=== PATIENT | male | born 1990 | race Caucasian/White ===

== ENCOUNTER 2016-09-10 15:34 | Emergency (ER) | payer BC ==
[~2016-09-10] VITALS: Ht 182.9 cm; Wt 110.0 kg
[~2016-09-10 15:34] MED LIST: INDSR/60 PO; LEVO75TA5 PO; RANI150C4 PO
[2016-09-10 15:39] VITALS: TEMP 36.5; Ht 182.9 cm; Wt 110.0 kg
--- NOTE | 2016-09-10 16:00 | EMERGENCY ROOM VISIT NOTE ---
History Report prepared by Verónica: Jono Layton Under the Supervision of: Dr. Ibrahima Arizmendi M.D. First contact with patient: 15:43 Chief Complaint: MENTAL HEALTH EVALUATION Stated Complaint: SEEING IMAGES, HEARING VOICES History of Present Illness The patient is a 25 year old male who presents to the Emergency Room with complaints of intermittent auditory hallucinations beginning several years ago. The psych binder caser states that the patient is not suicidal or homicidal. She reports that the patient does not have an ID for registration, and he states that he is here because he his homeless. The patient confirms that he is not homicidal and is "feeling bad". He states that he is also depressed and thinks that the world is ending. The patient notes that he has been admitted to [facility] and it helped with past cases. Source of History: patient, other (psych binder caser) Onset: several years ago Position: other (global) Quality: other (Hallucinations) Timing: intermittent Review of Systems See HPI for pertinent positives & negatives. A total of 10 systems reviewed and were otherwise negative. Past Medical & Surgical Medical Problems: (1) Bipolar disorder (2) Schizoaffective disorder Family History No significant family history Social History Smoking Status: Light Tobacco Smoker Alcohol Use: occasionally Drug Use: marijuana Marital Status: single Housing Status: lives with roommate Occupation Status: disabled Current/Historical Medications No Active Prescriptions or Reported Meds Allergies Coded Allergies: Haloperidol (Verified Allergy, Unknown, suicidal idiations,violent thoughts, 09/10/16) Oxcarbazepine (Verified Allergy, Unknown, suicidal ideatios,violent thoughts, 09/10/16) Valproic Acid (Verified Allergy, Unknown, suicidal ideations, violent thoughts, 09/10/16) Uncoded Allergies: ANESTHESIA (Allergy, Unknown, suicidal ideations, violent thoughts, ) uncertain which type of anesthesia causes reaction. Physical Exam Vital Signs Date Time Temp Pulse Resp B/P Pulse Ox O2 Delivery O2 Flow Rate FiO2 09/10/16 16:51 80 16 147/76 98 09/10/16 15:39 36.5 89 16 152/75 96 Physical Exam GENERAL: Patient is a healthy-appearing well-nourished HEAD: Normocephalic atraumatic EYES: Ocular movements intact pupils equal and react to light OROPHARYNX mucous membranes are moist no exudates present no erythema or edema present NECK: Supple no nuchal rigidity CHEST: Good equal expansion LUNGS: Clear and equal to auscultation CARDIAC: Normal S1 and S2 ABDOMEN: Soft nontender no guarding BACK: No CVA tenderness EXTREMITIES: No pain upon palpation normal muscle strength in all groups no clubbing cyanosis or edema NEURO: Patient is following commands is answering questions appropriately. Alert and oriented x3 Cranial Nerves 2-12 grossly intact Medical Decision & Procedures Laboratory Results 09/10/16 16:42 Red Blood Count 5.30, Mean Corpuscular Volume 84.3, Mean Corpuscular Hemoglobin 28.5, Mean Corpuscular Hemoglobin Concent 33.8, Mean Platelet Volume 9.8, Neutrophils (%) (Auto) 62.2, Lymphocytes (%) (Auto) 28.1, Monocytes (%) (Auto) 8.0, Eosinophils (%) (Auto) 1.1, Basophils (%) (Auto) 0.4, Neutrophils # (Auto) 3.43, Lymphocytes # (Auto) 1.55, Monocytes # (Auto) 0.44, Eosinophils # (Auto) 0.06, Basophils # (Auto) 0.02 09/10/16 16:42 Test 09/10/16 13:55 09/10/16 16:42 Urine Color YELLOW Urine Appearance CLEAR (CLEAR) Urine pH 5.5 (4.5-7.5) Urine Specific Floyd 1.021 (1.000-1.030) Urine Protein NEG (NEG) Urine Glucose (UA) NEG (NEG) Urine Ketones NEG (NEG) Urine Occult Blood NEG (NEG) Urine Nitrite NEG (NEG) Urine Bilirubin NEG (NEG) Urine Urobilinogen NEG (NEG) Urine Leukocyte Esterase NEG (NEG) Urine Opiates Screen NEG (NEG) Urine Methadone, Qualitative NEG (NEG) Urine Barbiturates NEG (NEG) Urine Phencyclidine (PCP) Level NEG (NEG) Ur Amphetamine/Methamphetamine NEG (NEG) MDMA (Ecstasy) Screen NEG (NEG) Urine Benzodiazepines Screen NEG (NEG) Urine Cocaine Metabolite NEG (NEG) Urine Marijuana (THC) POS (NEG) White Blood Count 5.51 K/uL (4.8-10.8) Red Blood Count 5.30 M/uL (4.7-6.1) Hemoglobin 15.1 g/dL (14.0-18.0) Hematocrit 44.7 % (42-52) Mean Corpuscular Volume 84.3 fL (80-100) Mean Corpuscular Hemoglobin 28.5 pg (25-34) Mean Corpuscular Hemoglobin Concent 33.8 g/dl (32-36) Platelet Count 216 K/uL (130-400) Mean Platelet Volume 9.8 fL (7.4-10.4) Neutrophils (%) (Auto) 62.2 % Lymphocytes (%) (Auto) 28.1 % Monocytes (%) (Auto) 8.0 % Eosinophils (%) (Auto) 1.1 % Basophils (%) (Auto) 0.4 % Neutrophils # (Auto) 3.43 K/uL (1.4-6.5) Lymphocytes # (Auto) 1.55 K/uL (1.2-3.4) Monocytes # (Auto) 0.44 K/uL (0.11-0.59) Eosinophils # (Auto) 0.06 K/uL (0-0.5) Basophils # (Auto) 0.02 K/uL (0-0.2) RDW Standard Deviation 39.2 fL (36.4-46.3) RDW Coefficient of Variation 12.8 % (11.5-14.5) Immature Granulocyte % (Auto) 0.2 % Immature Granulocyte # (Auto) 0.01 K/uL (0.00-0.02) Anion Gap 4.0 mmol/L (3-11) Est Creatinine Clear Calc Drug Dose 178.6 ml/min Estimated GFR () 143.2 Estimated GFR (Non- 123.5 BUN/Creatinine Ratio 13.8 (10-20) Calcium Level 8.7 mg/dl (8.5-10.1) Total Bilirubin 0.5 mg/dl (0.2-1) Direct Bilirubin 0.1 mg/dl (0-0.2) Aspartate Amino Transf (AST/SGOT) 15 U/L (15-37) Alanine Aminotransferase (ALT/SGPT) 28 U/L (12-78) Alkaline Phosphatase 72 U/L (45-117) Total Protein 6.5 gm/dl (6.4-8.2) Albumin 3.7 gm/dl (3.4-5.0) Thyroid Stimulating Hormone (TSH) 0.801 uIu/ml (0.300-4.500) Ethyl Alcohol mg/dL < 3.0 mg/dl (0-3) Labs reviewed by ED physician. ED Course 1646: Past medical records reviewed. The patient was evaluated in room A06. A complete history and physical examination was performed. After discussion with the psych binder caser, she is setting the patient up with outpatient follow up. The patient verbalized complete understanding and agreement. He is ready to go home shortly. Medical Decision Differential diagnosis: Etiologies such as mood disorder, infection, hypoglycemia, electrolyte abnormalities, cardiac sources, intracerebral event, toxicologic, neurologic, as well as others were entertained. This is a 25-year-old male who presents emergency department for mental health admission. The patient denies being suicidal or homicidal. He states he has been hearing voices however he has been hearing them pencil life. As the patient denies being suicidal or homicidal on multiple evaluations I feel he can be safely discharged for follow-up with outpatient psychiatry. Case management also independently interview the patient and also came to the same conclusion. The patient has seen some [facility] in the past. I do believe he is well enough to be discharged home. Patient was in agreement with the treatment plan. Impression Primary Impression: Mood disorder Scribe Attestation The scribe's documentation has been prepared under my direction and personally reviewed by me in its entirety. I confirm that the note above accurately reflects all work, treatment, procedures, and medical decision making performed by me. Departure Information Dispostion Home / Self-Care Prescriptions No Active Prescriptions or Reported Meds Referrals Ajit Mullins M.D. (PCP) Forms HOME CARE DOCUMENTATION FORM, IMPORTANT VISIT INFORMATION, School Instructions, Work Instructions Patient Instructions My [facility] Additional Instructions Follow up with O/p therapist You have been examined and treated today on an emergency basis only. This is not a substitute for, or an effort to provide, complete comprehensive medical care. It is impossible to recognize and treat all injuries or illnesses in a single emergency department visit. It is therefore important that you follow up closely with Dr Mullins. Call as soon as possible for an appointment. Thank you for your time and consideration. I look forward to speaking with you again soon. Please don't hesitate to call us if you have any questions.
[2016-09-10 16:10] LABS: URINE APPEARANCE CLEAR (CLEAR); URINE BILIRUBIN NEG (NEG); URINE COLOR YELLOW; URINE NITRITE NEG (NEG); URINE PH 5.5 (4.5-7.5); URINE SPECIFIC GRAVITY 1.021 (1.000-1.030); UROBILINOGEN NEG (NEG)
[2016-09-10 16:11] LABS: MANUAL MICROSCOPIC REQUIRED? NO; REVIEW REQ? NO
[2016-09-10 16:40] LABS: BENZODIAZEPINE, URINE NEG (NEG); COCAINE,URINE NEG (NEG); PHENCYCLIDINE, URINE NEG (NEG)
[2016-09-10 16:51] VITALS: BP 147/76; PULSE 80; O2SAT 98
[2016-09-10 16:56] LABS: BASO % 0.4 %; BASO ABS # 0.02 K/uL (0-0.2); COMPLETE YES; EOS % 1.1 %; HEMATOCRIT 44.7 % (42-52); IG% 0.2 %; LYMPH % 28.1 %; LYMPH ABS # 1.55 K/uL (1.2-3.4); MEAN CELL VOLUME 84.3 fL (80-100); MEAN CORPUSCULAR HEMOGLOBIN 28.5 pg (25-34); MEAN CORPUSCULAR HGB CONC 33.8 g/dl (32-36); MEAN PLATELET VOLUME 9.8 fL (7.4-10.4); NEUT % 62.2 %; PLATELET COUNT 216 K/uL (130-400); WHITE BLOOD COUNT 5.51 K/uL (4.8-10.8)
[2016-09-10 17:21] LABS: BUN/CREATININE RATIO 13.8 (10-20); CALCIUM 8.7 mg/dl (8.5-10.1); CREATININE 0.81 mg/dl (0.60-1.40); POTASSIUM 3.9 mmol/L (3.5-5.1)
[2016-09-10 17:32] LABS: THYROID STIMULATING HORMONE 0.801 uIu/ml (0.300-4.500)
[2016-10-17] MEDS ORDERED: HYDR-5688 PO (09:04)
[2017-03-06] MEDS ORDERED: PALI156I IM (06:16)
== END 2016-09-10 17:04 | disposition home or self-care (01) ==
LOC: C.EDB 15:36 → C.EDA 17:04
DX: Z00.8 Encounter for other general examination (principal); F39 Unspecified mood [affective] disorder; R44.0 Auditory hallucinations; R44.1 Visual hallucinations; F25.0 Schizoaffective disorder, bipolar type; F17.210 Nicotine dependence, cigarettes, uncomplicated

== ENCOUNTER → 2016-10-08 | Outpatient (CLI) | payer BC ==
[~2016-10-08] MED LIST changes: +ATR25 PO; +HYDR-5688 PO; -INDSR/60 PO; -LEVO75TA5 PO; +PALI117I IM; +PALI156I IM; +PALI3TAB PO; +PALI6TAB3 PO; -RANI150C4 PO
--- NOTE | 2016-10-08 10:05 | DIAGNOSTIC IMAGING REPORT ---
RIGHT ANKLE MIN 3 VIEWS CLINICAL HISTORY: Right ankle pain COMPARISON: November 2012 DISCUSSION: No acute fractures are visualized. There are corticated ossicles adjacent to the distal fibula and tibia. These are felt to be old. There is a transversely oriented screw present within the medial midfoot. There are mild posttraumatic arthritic changes similar to the preceding study. IMPRESSION: Old posttraumatic and postsurgical changes. No acute fractures. Electronically signed by: Juan Pablo Jackson M.D. 10/08/2016 10:03 AM Dictated Date/Time: 10/08/2016 10:01 AM
== END | disposition home or self-care (01) ==
LOC: C.RDSM 12:38
PROVIDERS: ATTEND Physician Assistant
DX: M25.571 Pain in right ankle and joints of right foot (principal)

== ENCOUNTER → 2016-10-11 | Outpatient (CLI) | payer BC | END | disposition home or self-care (01) | LOC: C.RDSM 11:15 | PROVIDERS: ATTEND Physical Medicine & Rehabilitation Sports Medicine | DX: M79.671 Pain in right foot (principal) ==

== ENCOUNTER → 2016-10-17 | Day surgery (SDC) | payer BC, OTHER ==
[2016-10-15 15:26] VITALS: Ht 182.9 cm; Wt 109.1 kg
[~2016-10-17] VITALS: Ht 182.9 cm; Wt 109.1 kg
[~2016-10-17] MED LIST changes: +ATROPINE SULFATE 0.1 MG/ML 5ML SYR IV PRN; +BUPIVACAINE/EPINEPHRINE 0.5% MPF 1:200,000 30 ML VIAL ONE; +CEFAZOLIN 2000 MG/60 ML D5W IV SCH; +DEXAMETHASONE SOD INJ 4 MG/ML VIAL ONE; +EpHEDrine SULFATE INJ 50 MG/ML AMP IV PRN; +FENTANYL CITRATE INJ 50 MCG/1 ML 2 ML VIAL IV PRN; +FENTANYL CITRATE INJ 50 MCG/1 ML 2 ML VIAL ONE; +LACTATED RINGER'S 1000ML 1,000 ML IV SCH; +LIDOCAINE HCL 2% 2 ML VIAL (20MG/ML) ONE; +LIDOCAINE/EPINEPHRINE 1% INJ 50 ML VIAL ONE; +MIDAZOLAM HCL 1 MG/ML 2ML VIAL ONE; +MoRPHine SULFATE 2 MG/ML CARP IV PRN; +MoRPHine SULFATE 4 MG/ML 1 ML CARP\\VIAL IV PRN; +ONDANSETRON INJ 2 MG/ML 2 ML VIAL IV PRN; +ONDANSETRON INJ 2 MG/ML 2 ML VIAL ONE; +OXYCODONE/ACETAMINOPHEN 5-325 TAB PO PRN; +PATIENT'S HEIGHT AND/OR WEIGHT NEEDED SCH; +POVIDONE-IODINE OP SOLN 30 ML BTL ONE; +PROPOFOL IV EMULSION 10 MG/ML 20 ML VIAL IV ONE; +SODIUM CHLORIDE 0.9% 1000ML 1,000 ML IV SCH
--- NOTE | 2016-10-17 06:41 | History & Physical Bridge Note ---
H&P Re-Evaluation Bridge Note: I have examined the patient, reviewed the History & Physical and in the interval since the performance of the History & Physical I have noted the following changes of clinical significance: No changes noted
--- NOTE | 2016-10-17 08:57 | [facility] Post Operative Brief Note ---
Immediate Operative Summary Operative Date Oct 17, 2016. Pre-Operative Diagnosis Retained Hardware Right Foot, post traumatic accessory ossicle of the navicular bone Post-Operative Diagnosis Same Procedure(s) Performed Right Foot Hardware Removal, excision of ossicle and repair of posterior tibial tendon Surgeon Dr. Jara Quarter Seamer Surgeon(s) Esteban Ulrich PA-C Estimated Blood Loss 5 ml Findings retained hardware and ossicle Specimens None Drains 0 Anesthesia LMA Complication(s) None Disposition Recovery Room / PACU
--- NOTE | 2016-10-17 09:07 | Discharge Instructions-SurgCtr ---
Discharge Instructions Date of Service Oct 17, 2016. Visit Reason for Visit: Retained Hardware Right Foot Discharge Discharge Diagnosis / Problem: Retained hardware right foot Discharge Goals Goal(s): Decrease discomfort, Improve function, Increase independence Activity Recommendations Activity Limitations: per Instructions/Follow-up section Weightbearing Status: Right non-weightbearing Anesthesia . Post Anesthesia Instructions: If you have had General Anesthesia or IV Sedation: * Do not drive today. * Resume driving when surgeon permits. * Do not make important decisions or sign legal documents today. * Call surgeon for: 1. Temperature elevations greater than 101 degrees F. 2. Uncontrollable pain. 3. Excessive bleeding. 4. Persistent nausea and vomiting. 5. Medication intolerance (nausea, vomiting or rash). * For nausea and vomiting use only clear liquids such as: tea, soda, bouillon until nausea subsides, then gradually increase diet as tolerated. * If you have any concerns or questions, call your surgeon's office. If physician is unavailable and it is an emergency, call 911 or go to the nearest emergency room. . Instructions / Follow-Up Instructions / Follow-Up DIET: * Resume previous diet. MEDICATIONS: * Please take your prescriptions as instructed at your pre-op appointment and/ or see medication discharge instructions listed above. * If concerns develop, call your physician's office at . SPECIAL CARE INSTRUCTIONS: * Ice to right foot as needed for pain/swelling * Elevate right foot above heart to relieve pain/swelling * Keep dressing clean, dry, intact. Keep splint on at all times. Do NOT REMOVE SPLINT to move ankle. * Do not place any weight on right foot. Use crutches to assist with ambulation. * Your surgical extremity may be discolored due to prepping agents used on the skin. A bluish-green tint is a normal variant and should not cause alarm. Call your doctor at [phone] if: * Temperature above 101 degrees * Pain not relieved by pain medicine ordered * There is increased drainage or redness from any incision * You have any unanswered questions, problems or concerns. FOLLOW UP VISIT: * If not already scheduled, please call the office at to schedule a follow-up appointment. Follow up as scheduled with Dr. Jara on 10/28/16. Diet Recommendations Home Diet: no limitations, resume previous diet Procedures Procedures Performed: Right Foot Hardware Removal, excision of ossicle and repair of posterior tibial tendon Pending Studies Studies pending at discharge: no Medical Emergencies . Who to Call and When: Medical Emergencies: If at any time you feel your situation is an emergency, please call 911 immediately. . Non-Emergent Contact Non-Emergency issues call your: Surgeon Call Non-Emergent contact if: temperature is above 101, your pain is not controlled, your pain is concerning you, wound has increased drainage, you have any medication questions . . "Provider Documentation" section prepared by Magalys Ulrich. . [place] Drug Monitoring Program Search Results: patient reviewed within database, no issues identified
--- NOTE | 2016-10-17 09:12 | [facility] Operative Report ---
Operative Report Operative Date Oct 17, 2016. Pre-Operative Diagnosis Retained Hardware Right Foot, post traumatic accessory ossicle of the navicular bone Post-Operative Diagnosis Same as pre-op Procedure(s) Performed Removal hardware right foot, removal ossicle accessory ossicle right foot, repair of posterior tibial tendon Surgeon Dr. Jara Clinical Biochemist Surgeon(s) Esteban Ulrich PA-C Estimated Blood Loss 5 ml Findings ossicle right foot; retained hardware Specimens None Drains 0 Anesthesia LMA Complication(s) None Disposition Recovery Room / PACU (stable) Indications Patient is a 25 year old male, s/p ORIF right navicular fracture approximately 10 years ago. He presented to the office with complaints of right foot pain. Failed conservative treatment, progressively worsened. x-rays obtained, found to have retained hardware right foot with accessory ossicle. Surgical intervention discussed, risks/complications discussed, informed consent obtained. Description of Procedure Patient was taken to the operating room, given IV ancef for surgical prophylaxis. He was placed under general anesthesia. Time out performed, prepped and draped in routine sterile fashion. I was present the entire case, please see Dr. Jara's operative report for further detail. Patient was awakened and taken to the recovery room in stable condition. I attest to the content of the Intraoperative Record and any orders documented therein. Any exceptions are noted below.
--- NOTE | 2016-10-17 09:53 | OPERATIVE REPORT ---
DATE OF OPERATION: 10/17/2016 PREOPERATIVE DIAGNOSIS: Retained hardware, right foot posttraumatic ossicle of the navicular. POSTOPERATIVE DIAGNOSIS: Same. PROCEDURE PERFORMED: Removal of deep hardware, excision of accessory ossicle of the navicular and repair of the posterior tibial tendon. SURGEON: Dr. Jara. INTERNATIONAL COORDINATOR: Magalys Ulrich. No resident or fellow available. ANESTHESIA: Laryngeal mask. INDICATIONS OF PROCEDURE: The patient is a 25-year-old male, who is 9 years status post ORIF of a fracture involving the medial portion of the navicular. The patient reports issues of long going pain on the medial side of the mid foot in the region of prior surgery, particularly with pressure. Radiographs showed that the navicular has completely healed without complication, and the hardware is intact. Review of serial x-ray shows that there is a fragmentation of the proximal portion of this fracture fragment, which has resulted in a small posttraumatic accessory ossicle of the navicular, which may or may not be causing symptoms. His treatment options were reviewed and discussed and he elected to proceed with operative intervention. I discussed with him preoperatively that this screw would be removed. If the ossicle was noted and noted to be unstable, this would be removed also. He may be able to weightbear normally after surgery in a fairly rapid fashion or he may have a prolonged recovery if we have to detach the tendon significantly in order to excise the ossicle and possibly need a repair and to protect it. PROCEDURE IN DETAIL: Informed consent was obtained. The patient was identified as Diogo Hernández. He identified the operative site as the right foot. I marked it with my initials. A preop surgical time-out was performed. A preop dose of IV antibiotics was given. He was taken to the operating room, positioned supine on the operating room table. A tourniquet was applied to the right calf. The leg was prepped and draped in usual sterile fashion. The exam under anesthesia was unremarkable in terms of the incision was well healed, there was no swelling, he had full range of motion. A laryngeal mask anesthetic was administered. DVT prophylaxis will be done with early patient mobility. Fluoroscopic guidance was utilized throughout the procedure. The limb was exsanguinated with the Esmarch, tourniquet inflated to 225 mmHg. The prior medial foot incision was utilized, which was centered over the tarsal navicular. The skin was incised, blunt dissection was performed through the subcutaneous tissues down to the level of the tendon. Dissection was carried proximally and the distal tendinous portion of the tibialis posterior tendon was identified. The sheath was opened for a very short distance. Fluoroscopic guidance was utilized to identify the location of the screw and a longitudinal split was made in the mid portion of the tibialis posterior tendon in line with the tendon. Electrocautery was utilized to dissect down to the level of the bone. The screw was not readily encountered. I then had to use the fluoroscope to identify the location of the screw and remove some bone with a rongeur, which had overgrown the top of the screw. Once the screw was localized, I dissected it out removing bone from around the head of the screw and washer and removed both of them completely. While doing the dissection, which was for approximately 1.5 cm of the split longitudinally in the distal posterior tib tendon, I identified just proximal to the screw, a mobile ossicle within the tendon. This was the ossicle noted on radiographs, it is possible that this may have contributed to the patient's symptoms. I then went ahead and used electrocautery and blunt dissection to dissect out this ossicle completely and remove it. There was a prominent ridge of bone on the anterior aspect of the navicular, which was debrided so as to prevent any postoperative prominence. The anterior one-third of the tendon was detached in this process, the posterior two-third had been split and detached from the ossicle. The posterior two-third remained robustly attached to the more plantar aspect of the navicular and the additional attachments of the posterior tib tendon. Because of the ossicle that was removed, I elected to go ahead and perform a repair of the posterior tibial tendon. The prominent ridge of bone was removed. A curette was utilized to excoriate the navicular. Bony prominences were removed with the rongeur. The talonavicular joint was identified. Fluoroscopic guidance was utilized to identify bony landmarks. I used the tap for the 4.5 [employer] screw, inserted it into the hole and advanced this as necessary. Fluoroscopically, I confirm the trajectory as being in line with the prior screw hole and away from the joint structures. The anchor was then inserted. I took 2 blue stitches posteriorly up through the posterior tibial tendon in a horizontal mattress fashion and tied that down. I then took the 2 white stitches and did a running locked stitch, 4 throws up, 3 throws down in the posterior tibial tendon anterior one-third and then used a sliding technique to shift this down to the bone and tie it in a tension free fashion. I then took these white sutures and passed them up through the posterior portion and tied in a horizontal mattress fashion for imbrication. I then went ahead and used a #0 Vicryl to oversew the split in the tendon. The ankle was placed through range of motion without any movement of the tendon. The tourniquet was let down, meticulous hemostasis was performed with electrocautery pressure. Ten mL of 1% lidocaine with epinephrine and 0.5% Marcaine with epinephrine were injected into the skin and soft tissues around the incision. The skin was then closed with 4-0 nylon interrupted horizontal mattress stitches. A Xeroform, 4 x 4's, cast padding and a posterior splint with the ankle in neutral position were then applied. The patient was awakened from anesthesia without difficulty and taken to recovery room in stable condition. There were no specimens or complications. The counts were correct at the end of case. Blood loss was minimal. At the conclusion of the operation, I spoke to patient's grandfather and informed of my findings, and gave postoperative instructions. DVT prophylaxis will be done with early mobility. He is to be nonweightbearing in the splint. When he returns for followup, we will place him in to a fracture boot and either make him nonweightbearing or partial weightbearing depending on the circumstances. The excised accessory ossicle was perhaps 12 mm long and a cm wide and 0.5 cm thick. The patient will be given his screw and washer if he so desires. Fluoroscopic images confirmed complete removal of the hardware and no evidence of complication or fracture. Irrigation with sterile saline and irrigation with Betadine lavage was also performed throughout the case and at the end of the procedure. I attest to the content of the Intraoperative Record and any orders documented therein. Any exception s are noted below.
[2016-10-17 09:56] VITALS: TEMP 36.8
[2016-10-17 10:16] VITALS: BP 150/86; PULSE 59; O2SAT 98
--- NOTE | 2016-10-17 10:21 | Anesthesia Progress Nt - [facility] ---
Anesthesia Post Op Note Date & Time Oct 17, 2016 at 10:20 Vital Signs Pain Intensity: 0 Vital Signs Past 12 Hours Date Time Temp Pulse Resp B/P (MAP) Pulse Ox O2 Delivery O2 Flow Rate FiO2 10/17/16 10:16 59 16 150/86 (107) 98 Room Air 10/17/16 09:56 36.8 56 16 140/78 (98) 98 Room Air 10/17/16 09:44 36.4 61 20 137/67 98 10/17/16 09:15 36.6 77 20 168/101 99 Mask 5 10/17/16 06:39 36.8 77 20 144/88 (106) 96 Room Air Notes Mental Status: alert / awake / arousable, participated in evaluation Pt Amnestic to Procedure: Yes Nausea / Vomiting: adequately controlled Pain: adequately controlled Airway Patency, RR, SpO2: stable & adequate BP & HR: stable & adequate Hydration State: stable & adequate Anesthetic Complications: no major complications apparent
== END | disposition home or self-care (01) ==
LOC: X.SURG 06:19
PROVIDERS: ATTEND Physical Medicine & Rehabilitation Sports Medicine
DX: T84.84XA Pain due to internal orthopedic prosthetic devices, implants and grafts, initial encounter (principal); Y83.1 Surgical operation with implant of artificial internal device as the cause of abnormal reaction of the patient, or of later complication, without mention of misadventure at the time of the procedure; M21.861 Other specified acquired deformities of right lower leg; Z90.89 Acquired absence of other organs; Z98.890 Other specified postprocedural states; E66.9 Obesity, unspecified

== ENCOUNTER 2016-10-30 08:14 | Inpatient (IN) | payer BC, OTHER ==
[~2016-10-30] VITALS: Ht 188 cm; Wt 101.9 kg
[~2016-10-30 08:14] MED LIST changes: -ATR25 PO; -ATROPINE SULFATE 0.1 MG/ML 5ML SYR IV PRN; -BUPIVACAINE/EPINEPHRINE 0.5% MPF 1:200,000 30 ML VIAL ONE; -CEFAZOLIN 2000 MG/60 ML D5W IV SCH; -DEXAMETHASONE SOD INJ 4 MG/ML VIAL ONE; -EpHEDrine SULFATE INJ 50 MG/ML AMP IV PRN; -FENTANYL CITRATE INJ 50 MCG/1 ML 2 ML VIAL IV PRN; -FENTANYL CITRATE INJ 50 MCG/1 ML 2 ML VIAL ONE; -LACTATED RINGER'S 1000ML 1,000 ML IV SCH; -LIDOCAINE HCL 2% 2 ML VIAL (20MG/ML) ONE; -LIDOCAINE/EPINEPHRINE 1% INJ 50 ML VIAL ONE; -MIDAZOLAM HCL 1 MG/ML 2ML VIAL ONE; -MoRPHine SULFATE 2 MG/ML CARP IV PRN; -MoRPHine SULFATE 4 MG/ML 1 ML CARP\\VIAL IV PRN; -ONDANSETRON INJ 2 MG/ML 2 ML VIAL IV PRN; -ONDANSETRON INJ 2 MG/ML 2 ML VIAL ONE; -OXYCODONE/ACETAMINOPHEN 5-325 TAB PO PRN; -PALI117I IM; -PALI156I IM; -PALI3TAB PO; -PALI6TAB3 PO; -PATIENT'S HEIGHT AND/OR WEIGHT NEEDED SCH; -POVIDONE-IODINE OP SOLN 30 ML BTL ONE; -PROPOFOL IV EMULSION 10 MG/ML 20 ML VIAL IV ONE; -SODIUM CHLORIDE 0.9% 1000ML 1,000 ML IV SCH
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
[2016-10-30 09:02] LABS: URINE APPEARANCE CLEAR (CLEAR); URINE BILIRUBIN NEG (NEG); URINE COLOR YELLOW; URINE NITRITE NEG (NEG); URINE PH 6.5 (4.5-7.5); URINE SPECIFIC GRAVITY 1.027 (1.000-1.030); UROBILINOGEN NEG (NEG); ZZUR CULT IF INDIC CLEAN CATCH NO
[2016-10-30 09:06] LABS: MANUAL MICROSCOPIC REQUIRED? NO; REVIEW REQ? NO
[2016-10-30 09:12] LABS: BASO % 0.5 %; BASO ABS # 0.03 K/uL (0-0.2); COMPLETE YES; EOS % 0.6 %; HEMATOCRIT 44.2 % (42-52); IG% 0.3 %; LYMPH % 22.2 %; LYMPH ABS # 1.37 K/uL (1.2-3.4); MEAN CELL VOLUME 82.6 fL (80-100); MEAN CORPUSCULAR HEMOGLOBIN 29.5 pg (25-34); MEAN CORPUSCULAR HGB CONC 35.7 g/dl (32-36); MEAN PLATELET VOLUME 9.6 fL (7.4-10.4); MONO % 7.8 %; NEUT % 68.6 %; PLATELET COUNT 228 K/uL (130-400); RED BLOOD COUNT 5.35 M/uL (4.7-6.1); WHITE BLOOD COUNT 6.18 K/uL (4.8-10.8)
[2016-10-30 09:25] LABS: BENZODIAZEPINE, URINE NEG (NEG); COCAINE,URINE NEG (NEG); PHENCYCLIDINE, URINE NEG (NEG)
[2016-10-30 09:30] LABS: CALCIUM 8.9 mg/dl (8.5-10.1); POTASSIUM 3.6 mmol/L (3.5-5.1)
[2016-10-30 09:40] LABS: THYROID STIMULATING HORMONE 1.83 uIu/ml (0.300-4.500)
[2016-10-30 10:00] LABS: ACETAMINOPHEN < 2 ug/ml (10-30)
[2016-10-30 12:49] VITALS: O2SAT 97
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
[2016-10-30] MEDS ORDERED: hydrOXYzine HCL 25 MG TAB PO PRN ×2 (13:30)
[2016-10-30] MEDS ORDERED: MAGNESIUM HYDROXIDE SUSP 30 ML UDC PO PRN (13:30)
[2016-10-30] MEDS ORDERED: BISMUTH SUBSALICYLATE PER ML OMNICELL CHARGE PO PRN (13:30)
[2016-10-30] MEDS ORDERED: ALUMINUM/MAGNESIUM SUSP 30 ML UDC PO PRN (13:30)
[2016-10-30] MEDS ORDERED: SODIUM CHLORIDE 0.65% NA SOLN 45 ML (OCEAN) PRN (13:30)
[2016-10-30] MEDS ORDERED: RISPERIDONE ODT 1MG PO PRN (14:15)
[2016-10-30 14:18] VITALS: BP 164/94; PULSE 72; TEMP 36.7; Ht 188 cm; Wt 101.9 kg
[2016-10-30] MEDS ORDERED: RISPERIDONE ODT 1MG PO ONE (14:30)
--- NOTE | 2016-10-30 17:14 | Progress Note ---
Progress Note Date of Service Oct 30, 2016. Progress Note 2 wks s/p screw removal and excision accessory ossicle of navicular. Notified by father that pateint was admitted. No complaints. Not wearing boot/splint. wound benign. Near from, dnvi, PTT function intact, tendon contraction palpable , no limp. obtain boot (if he has one). will remove sutures and apply short leg walking cast. Wbat.no infection. no swelling arch intact. follow up with ortho 2 weeks.
[2016-10-30] MEDS: RISPERIDONE ODT 1MG PO SCH (21:08)
[2016-10-31 06:52] VITALS: BP_SYST 131; BP_SYST 149; BP_DIAS 77; BP_DIAS 82; PULSE 42; PULSE 46; TEMP 36.3
[2016-10-31 08:42] LABS: CHOLESTEROL/HDL RATIO 3.7
--- NOTE | 2016-10-31 08:46 | Orthopedic Progress Note ---
Orthopedic Progress Note Date of Service Oct 31, 2016. Subjective Reports: feeling well, Denies: complaints Objective calves soft nontender, dressing C/D/I, incision C/D/I, A&O x3, toes mobile Full ankle ROM, mild lower extremity edema, mild tenderness with palpation. Sutures retained, removed today, steri-strips applied. Distal pulses 1+ Date Time Temp Pulse Resp B/P (MAP) Pulse Ox O2 Delivery O2 Flow Rate FiO2 10/31/16 06:52 36.3 42 18 131/77 46 149/82 10/30/16 14:18 36.7 72 18 164/94 10/30/16 12:49 64 18 139/71 97 Room Air 10/30/16 10:15 65 18 159/74 98 Room Air Laboratory Results 24 Hours: Test 10/30/16 08:50 White Blood Count 6.18 K/uL Red Blood Count 5.35 M/uL Hemoglobin 15.8 g/dL Hematocrit 44.2 % Mean Corpuscular Volume 82.6 fL Mean Corpuscular Hemoglobin 29.5 pg Mean Corpuscular Hemoglobin Concent 35.7 g/dl Platelet Count 228 K/uL Mean Platelet Volume 9.6 fL Neutrophils (%) (Auto) 68.6 % Lymphocytes (%) (Auto) 22.2 % Monocytes (%) (Auto) 7.8 % Eosinophils (%) (Auto) 0.6 % Basophils (%) (Auto) 0.5 % Neutrophils # (Auto) 4.24 K/uL Lymphocytes # (Auto) 1.37 K/uL Monocytes # (Auto) 0.48 K/uL Eosinophils # (Auto) 0.04 K/uL Basophils # (Auto) 0.03 K/uL Assessment & Plan Assessment: 2 weeks s/p Hardware removal right ankle, removal accessory ossicle, repair posterior tibial tendon RLE. Plan: Placed in short leg cast Allowed to WBAT RLE Elevate as needed for swelling Cast shoe over cast with weight bearing. Move toes frequently Keep cast intact, keep clean and dry when bathing. Follow up as scheduled next week on 11/07/16 at 1:15 p.m. with [facility]. Please call [phone] with any questions or concerns. Findings will be discussed with Dr. Jara.
[2016-10-31] MEDS: RISPERIDONE ODT 1MG PO SCH (08:53)
[2016-10-31] MEDS ORDERED: PALIPERIDONE 3 MG TABCR PO ONE (11:13)
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
[2016-10-31] MEDS ORDERED: HALOPERIDOL LACTATE 5 MG/ML 1 ML VIAL IM PRN (11:15)
[2016-11-01] MEDS: HALOPERIDOL 5 MG TAB PO PRN ×2 (04:45→16:22)
[2016-11-01 06:38] VITALS: BP_SYST 148; BP_SYST 158; BP_DIAS 104; BP_DIAS 107; PULSE 87; PULSE 93; TEMP 36.6
[2016-11-01] MEDS: PALIPERIDONE 3 MG TABCR PO SCH (09:13)
--- NOTE | 2016-11-01 11:59 | Psychiatric Progress Notes ---
Progress Note Date of Service Nov 01, 2016. Interval History Diogo Hernández is a 25-year-old single male who lives in an apartment through [facility] in [place] with roommate, has a history of schizoaffective disorder bipolar type and substance abuse, and presented to the ER with police for psychosis on 10/30/2016. He was admitted on a 201 voluntary commitment, but we have filed for a 304 commitment with intent to discharge him on an outpatient commitment due to chronic noncompliance. Chief Complaint "Doing good.". Subjective Patient was seen & assessed interval progress reviewed with Treatment Team. The patient remains psychotic. He says that he hears voices all of the time. Sometimes the voices just tell him what's going to happen, other times they "play with my feelings" or tell him to pray over things. He talked about not liking that his foot is in a cast as he is used to being active and now he can' t move freely. he says that his behaviors MAIL MESSENGER were related to "stress" over his foot surgery and lack of support from his family, "I have always tried to be there for them, and now when I need them, they're not.". He says that he has a good relationship with his father although describes him as "a pathologic liar", but not with his mother who he describes as "abusive. He says that his 6 yo daughter lives with her mother in [place], but he gets to see her several times per year and is worried that being in the hospital will conflict with that visit. He says that his mood is "really depressed", but denies SI/HI. We discuss the NGUYEN Sustenna, and today he is willing to receive this in hopes he will be more compliant with meds. He denies visual hallucinations. Review of Systems Constitutional: No fever, No chills, No sweats, No weight loss, No weakness, No fatigue, No problem reported ENT: No hearing loss, No unusual epistaxis, No nasal symptoms, No sore throat, No tinnitus, No dental problems, No trouble swallowing, No problem reported Respiratory: No cough, No sputum, No wheezing, No shortness of breath, No dyspnea on exertion, No dyspnea at rest, No hemoptysis, No problem reported Cardiovascular: No chest pain, No orthopnea, No PND, No edema, No claudication , No palpitations, No problem reported Abdomen: No pain, No nausea, No vomiting, No diarrhea, No constipation, No GI bleeding, No problem reported Musculoskeletal: + problem reported (rt foot cast, in boot) Neurologic: No memory loss, No paralysis, No weakness, No numbness/tingling, No vertigo, No balance problems, No problem reported Psychiatric: + depression symptoms, + problem reported (hears voices) Integumentary: No rash, No itch, No new/changing skin lesions, No color change , No bleeding, No problem reported Sleep Information Total Hours of Sleep: 2.00 Meal Information Percent of Breakfast Consumed: 75 Percent of Lunch Consumed: 80 Percent of Dinner Consumed: 100 Mental Status Exam During interview pt is: alert and oriented (to year, month, state, county, town , hospital, and floor, but not to season, date, day), cooperative Appearance: appropriately dressed, disheveled, other (cast on right leg, walking with a walker) Eye contact is: fair Motor behavior is: steady gait & station Speech: normal in rate, rhythm & volume Affect: flat Mood is: depressed Thought process: goal directed, concrete Thought content: paranoid, delusions, ideas of reference Suicidal thought are: denied Homicidal thoughts are: denied Hallucinations: auditory, denies visual Cognition: other (all spheres impaired by psychosis) Intelligence estimated to be: average Insight: impaired Judgement: impaired Summary of Past History Diogo is adjusting to the unit, and has been behaviorally appropriate. He seems more organized today, endorsing depression and clear auditory hallucinations. He is willing to began an NGUYEN and so we are preauthing Sustenna and will start 234 mg IM today with second shot on day 4. He has been scheduled for a 304 hearing on next week as well. We will continue Invega 3 mg HS for now. Medication Trials (1) Past Psych Meds Include but not limited to (from records, patient poor historian): lithium Depakote Haldol Trileptal Ativan Ambien Abilify Risperdal Zyprexa Risperdal Consta Last Edited By: Nadine Kapoor on Oct 31, 2016 10:56 Impression 25-year-old single white male with a history of schizoaffective disorder bipolar type, chronic treatment noncompliance, and polysubstance abuse who presented with psychotic symptoms. Collateral information from his father reveals that he has continued with a string of inpatient hospitalizations and incarcerations, has been chronically noncompliant with outpatient treatment and medications, and has been out of treatment for about the past 7 months. He is currently without providers and on no medications. He requires inpatient treatment due to risk of harm to himself, as he endorses suicidal thoughts with multiple plans, and also feels he is in danger and that his roommate wants to kill him with a knife. Inpatient treatment as the least restrictive and most appropriate venue at this time. The recommendations are for a long-acting injectable antipsychotic, outpatient 304 commitment, and arranging outpatient services. Plan (1) Schizoaffective disorder - Get collateral information from patient's father, and obtain records of any treatment he has received since his last hospitalization here in 2014. 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 - The patient is willing to take risperidone, which he indicates he has been on in the past and was helpful. I will start 1 mg twice a day and 1mg q 4 hrs prn psychosis, check fasting labs, and we will titrate as tolerated to an effective dose. He may benefit from a long-acting injectable. - Medically necessary private room for psychosis. 10/31 - Diagnosis clarified and collateral obtained from father (see above). - Change risperidone to paliperidone, with a plan to start a long-acting injectable in the next several days, as soon as the patient is willing to accept it. He indicated a willingness to get the shot, but then stated that he wanted to wait until his records were reviewed and he took the oral medication first. - Discontinue when necessary risperidone and start Haldol 5 mg when necessary. His father reports he has been on this medication at multiple points in the past. - Fasting lipid profile performed today was normal, and fasting glucose was slightly elevated at 101. - File for a 304 inpatient commitment with a hearing to be held and 5 business days, this will be converted to an involuntary outpatient commitment at the time of discharge. Hopefully this will assist with improving compliance with medications and appointments as an outpatient, as he has chronic poor compliance , leading to frequent inpatient admissions and likely playing a role in his numerous arrests and incarcerations as well. - He will need a family meeting with his parents once he is less psychotic and able to participate. May also want to contact roommate prior to discharge to ensure there are no weapons and that the sword is secured (preferentially removed from the apartment). - Social work to contact the [facility] service unit to determine if he has case management services, and if not, to place a referral. He will also need outpatient psychiatric care, therapy, and other support services such as psych rehabilitation. 11/01 -Start Invega Sustenna 234 mg IM today and 117 mg IM on 11/04 - Continue Invega 3 mg HS (2) Methamphetamine abuse As psychosis improves, will educate about the risks of ongoing substance abuse and recommendations for abstinence. (3) Cannabis abuse As psychosis improves, will educate about the risks of ongoing substance abuse and recommendations for abstinence. (4) Hypertension BP initially high in ER and h/o HTN, but has now come down, so will continue to monitor for now. Return to PCP for OP f/u. (5) Obesity Encourage healthy diet and exercise. Refer back to PCP for ongoing management. (6) S/P hardware removal 2 weeks s/p hardware removal R ankle. Appreciate ortho recs - cast placed, walking with walker, elevate as needed for swelling, moved toes frequently, keep cast dry when bathing. Follow-up 11/07/2016 at [facility] orthopedics. Discharge / Aftercare Planning Primary Care Physician: Name: Dr. Hines Visit Code E&M Code: 24188 Inventory Assets Strengths: Supportive father, willing for treatment Risk Factors Assessment Male: Yes : Yes /single/: Yes Higher / Fall in social status: No Access to guns: No (but reports there is a sword in his apartment) Health problems: Yes Mental Health Diagnoses: Yes Substance use disorders: Yes Previous attempt: Yes Family history of suicide: No Previous psychiatric stay: Yes Hopelessness: No Smoker: Yes Protective Factors Assessment Shinto beliefs: No : No Responsible for young children: No Employed: No Stable relationships: No Supportive family: Yes Good rapport with provider: No Data Vital Signs Last 24 Hrs: Date Time Temp Pulse Resp B/P (MAP) Pulse Ox O2 Delivery O2 Flow Rate FiO2 11/01/16 06:38 36.6 93 16 158/104 87 148/107 Meds Administered Last 24 Hrs: Meds Administered (Past 24Hrs) Medications (Trade) Dose Ordered Sig/Rehana Route Start Time Stop Time Status Last Admin Dose Admin Risperidone (Risperdal M Tab) 1 mg BID PO 10/30/16 22:00 10/31/16 11:16 DC 10/31/16 08:53 1 MG Risperidone (Risperdal M Tab) 1 mg NOW ONCE PO 10/30/16 14:30 10/30/16 14:31 DC 10/30/16 14:40 1 MG Paliperidone (Invega) 3 mg DAILY PO 11/01/16 09:00 12/01/16 08:59 11/01/16 09:13 3 MG Paliperidone (Invega) 3 mg 1113 ONCE PO 10/31/16 11:13 10/31/16 11:33 DC 10/31/16 11:52 3 MG Haloperidol (Haldol Tab) 5 mg Q4H PRN PO 10/31/16 11:15 11/30/16 11:14 11/01/16 04:45 5 MG Lab Results Last 24 Hrs: 10/30/16 08:50 Red Blood Count 5.35, Mean Corpuscular Volume 82.6, Mean Corpuscular Hemoglobin 29.5, Mean Corpuscular Hemoglobin Concent 35.7, Mean Platelet Volume 9.6, Neutrophils (%) (Auto) 68.6, Lymphocytes (%) (Auto) 22.2, Monocytes (%) (Auto) 7.8, Eosinophils (%) (Auto) 0.6, Basophils (%) (Auto) 0.5, Neutrophils # (Auto) 4.24, Lymphocytes # (Auto) 1.37, Monocytes # (Auto) 0.48, Eosinophils # (Auto) 0.04, Basophils # (Auto) 0.03 10/30/16 08:50 Test 10/30/16 08:50 10/31/16 08:01 White Blood Count 6.18 K/uL (4.8-10.8) Red Blood Count 5.35 M/uL (4.7-6.1) Hemoglobin 15.8 g/dL (14.0-18.0) Hematocrit 44.2 % (42-52) Mean Corpuscular Volume 82.6 fL (80-100) Mean Corpuscular Hemoglobin 29.5 pg (25-34) Mean Corpuscular Hemoglobin Concent 35.7 g/dl (32-36) Platelet Count 228 K/uL (130-400) Mean Platelet Volume 9.6 fL (7.4-10.4) Neutrophils (%) (Auto) 68.6 % Lymphocytes (%) (Auto) 22.2 % Monocytes (%) (Auto) 7.8 % Eosinophils (%) (Auto) 0.6 % Basophils (%) (Auto) 0.5 % Neutrophils # (Auto) 4.24 K/uL (1.4-6.5) Lymphocytes # (Auto) 1.37 K/uL (1.2-3.4) Monocytes # (Auto) 0.48 K/uL (0.11-0.59) Eosinophils # (Auto) 0.04 K/uL (0-0.5) Basophils # (Auto) 0.03 K/uL (0-0.2) RDW Standard Deviation 37.4 fL (36.4-46.3) RDW Coefficient of Variation 12.5 % (11.5-14.5) Immature Granulocyte % (Auto) 0.3 % Immature Granulocyte # (Auto) 0.02 K/uL (0.00-0.02) Urine Color YELLOW Urine Appearance CLEAR (CLEAR) Urine pH 6.5 (4.5-7.5) Urine Specific Burton 1.027 (1.000-1.030) Urine Protein NEG (NEG) Urine Glucose (UA) NEG (NEG) Urine Ketones NEG (NEG) Urine Occult Blood NEG (NEG) Urine Nitrite NEG (NEG) Urine Bilirubin NEG (NEG) Urine Urobilinogen NEG (NEG) Urine Leukocyte Esterase NEG (NEG) Anion Gap 8.0 mmol/L (3-11) Est Creatinine Clear Calc Drug Dose 139.8 ml/min Estimated GFR () 120.7 Estimated GFR (Non- 104.1 BUN/Creatinine Ratio 13.0 (10-20) Calcium Level 8.9 mg/dl (8.5-10.1) Total Bilirubin 0.8 mg/dl (0.2-1) Direct Bilirubin 0.2 mg/dl (0-0.2) Aspartate Amino Transf (AST/SGOT) 12 U/L (15-37) Alanine Aminotransferase (ALT/SGPT) 23 U/L (12-78) Alkaline Phosphatase 74 U/L (45-117) Total Protein 7.2 gm/dl (6.4-8.2) Albumin 3.9 gm/dl (3.4-5.0) Thyroid Stimulating Hormone (TSH) 1.830 uIu/ml (0.300-4.500) Salicylates Level < 1.7 mg/dl (2.8-20) Urine Opiates Screen NEG (NEG) Urine Methadone, Qualitative NEG (NEG) Acetaminophen Level < 2 ug/ml (10-30) Urine Barbiturates NEG (NEG) Urine Phencyclidine (PCP) Level NEG (NEG) Ur Amphetamine/Methamphetamine NEG (NEG) MDMA (Ecstasy) Screen NEG (NEG) Urine Benzodiazepines Screen NEG (NEG) Urine Cocaine Metabolite NEG (NEG) Urine Marijuana (THC) NEG (NEG) Ethyl Alcohol mg/dL < 3.0 mg/dl (0-3) Fasting Glucose 101 mg/dl (70-99) Triglycerides Level 107 mg/dl (0-150) Cholesterol Level 189 mg/dl (0-200) HDL Cholesterol 51 mg/dl LDL Cholesterol, Calculated 117 mg/dl VLDL Cholesterol, Calculated 21 mg/dl Cholesterol/HDL Ratio 3.7 Problem Qualifiers (1) Schizoaffective disorder: Schizoaffective disorder type: bipolar Qualified Codes: F25.0 - Schizoaffective disorder, bipolar type
[2016-11-01] MEDS ORDERED: INVEGA SUSTENNA 234 MG/ML 1.5 ML SYR IM ONE (12:00)
[2016-11-01] MEDS ORDERED: NURSING VERBAL MED ORDER ONE (19:00)
[2016-11-01] MEDS ORDERED: LORAZEPAM 1 MG TAB PO PRN (19:15)
[2016-11-01] MEDS ORDERED: LORAZEPAM 2 MG/ML 1 ML VIAL IM PRN (19:15)
[2016-11-02 06:37] VITALS: BP 137/70; PULSE 45; TEMP 36.4
--- NOTE | 2016-11-02 08:12 | Psychiatric Progress Notes ---
Progress Note Date of Service Nov 02, 2016. Interval History Diogo Hernández is a 25-year-old single male who lives in an apartment through [facility] in [place] with roommate, has a history of schizoaffective disorder bipolar type and substance abuse, and presented to the ER with police for psychosis on 10/30/2016. He was admitted on a 201 voluntary commitment, but we have filed for a 304 commitment with intent to discharge him on an outpatient commitment due to chronic noncompliance. Chief Complaint "You're taking this cast off today!" Subjective Patient was seen & assessed interval progress reviewed with nursing. Staff report he remains psychotic with no insight, became agitated yesterday, demanded that his leg cast be removed as he thought it was interfering with his spirituality. He was unable to reality test, and escalated when staff informed him the cast couldn't be removed, saying he was going to remove it himself, and demanding the ortho be called. He received multiple doses of prn Haldol and Ativan, and submitted a 72 hour notice to withdraw from treatment. Social work attempted to arrange case management through the [facility], but were told he would have to come in for an intake first, despite the plan for a 304 outpatient commitment. He got his first Invega Sustenna shot yesterday, and the second loading dose is scheduled for 11/04/16. He continues to talk about delusions of persecution, that the government wants to kill him, he is going to , he saw the prophet Tenzin, and bugs and demons are crawling on him. He gave staff a note stating he was having thoughts of and wanted to leave the hospital. His father has been calling for updates. This morning, he approached this provider yelling demands that his cast be removed, and was unable to engage in a discussion of the need for ongoing treatment to orthopedics, interrupting and continuing to yell and scream, stating that "you are going to remove this cast, or else!" Attempted to verbally de-escalate him, and he was poorly responsive, as he followed this physician around the unit and continued to yell, stating "I need my security alarm technician!" Staff informed of escalating behavior and to offer Haldol and Ativan for agitation, and security reported to the unit. Patient was unable to engage in a discussion of his treatment due to agitation. He continues to walk rapidly around the unit, ranting a nonsensical and disconnected fashion, stating that he needs the cast removed because it is interfering with his spirituality, and is not excepting staffs explanations as to why it cannot be removed at this time. Will continue to monitor, and may need involuntary 302 commitment. Sleep Information Total Hours of Sleep: 7.50 Meal Information Percent of Breakfast Consumed: 75 Percent of Lunch Consumed: 100 Percent of Dinner Consumed: 75 Mental Status Exam During interview pt is: uncooperative, other (angry, yelling, menacing behavior ) Appearance: appropriately dressed, disheveled, other (cast on right leg, walking independently) Eye contact is: poor Motor behavior is: steady gait & station, no abnormal motor movements Speech: loud, other (angry tone) Affect: irritable, angry, other (inappropriate and aggressive) Mood is: irritable, angry Thought process: goal directed, perseveration (on wanting his cast off), concrete Thought content: paranoid, delusions Hallucinations: auditory, denies visual Cognition: other (all spheres impaired by psychosis) Intelligence estimated to be: average Insight: severely impaired Judgement: severely impaired Patient would not engage in interview process her answer questions about hallucinations, delusions of reference, suicidal and homicidal thoughts. He did hand a note to staff stating that he was thinking of and wanted to be released from the hospital. Summary of Past History Diogo is adjusting to the unit, and had been more behaviorally appropriate, but decompensated yesterday, with increased agitation and paranoia, demanding that his cast be removed, as he thinks it's interfering with his spirituality. He is unable to engage in a discussion of the risks and benefits of this or to demonstrate an understanding of the risks of removing his cast at this time. He is increasingly agitated, requiring multiple when necessary's in the presence of security, and is more disorganized today. He continues to have depressed mood and psychosis, was started on Invega Sustenna yesterday, and his second loading shot is due November 04. He has been scheduled for a 304 hearing on with a plan to convert to an involuntary outpatient commitment at discharge, but we may need to pursue a 302 involuntary commitment if he is not willing to rescind his notice and stay in treatment voluntarily until the time of his hearing. We will continue Invega 3 mg HS for now. Medication Trials (1) Past Psych Meds Include but not limited to (from records, patient poor historian): lithium Depakote Haldol Trileptal Ativan Ambien Abilify Risperdal Zyprexa Risperdal Consta Last Edited By: Nadine Kapoor on Oct 31, 2016 10:56 Impression 25-year-old single white male with a history of schizoaffective disorder bipolar type, chronic treatment noncompliance, and polysubstance abuse who presented with psychotic symptoms. Collateral information from his father reveals that he has continued with a string of inpatient hospitalizations and incarcerations, has been chronically noncompliant with outpatient treatment and medications, and has been out of treatment for about the past 7 months. He is currently without providers and on no medications. He requires inpatient treatment due to risk of harm to himself, as he endorses suicidal thoughts with multiple plans, and also feels he is in danger and that his roommate wants to kill him with a knife. Inpatient treatment as the least restrictive and most appropriate venue at this time. The recommendations are for a long-acting injectable antipsychotic, outpatient 304 commitment, and arranging outpatient services. Plan (1) Schizoaffective disorder - Get collateral information from patient's father, and obtain records of any treatment he has received since his last hospitalization here in 2014. 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 - The patient is willing to take risperidone, which he indicates he has been on in the past and was helpful. I will start 1 mg twice a day and 1mg q 4 hrs prn psychosis, check fasting labs, and we will titrate as tolerated to an effective dose. He may benefit from a long-acting injectable. - Medically necessary private room for psychosis. 10/31 - Diagnosis clarified and collateral obtained from father (see above). - Change risperidone to paliperidone, with a plan to start a long-acting injectable in the next several days, as soon as the patient is willing to accept it. He indicated a willingness to get the shot, but then stated that he wanted to wait until his records were reviewed and he took the oral medication first. - Discontinue when necessary risperidone and start Haldol 5 mg when necessary. His father reports he has been on this medication at multiple points in the past. - Fasting lipid profile performed today was normal, and fasting glucose was slightly elevated at 101. - File for a 304 inpatient commitment with a hearing to be held and 5 business days, this will be converted to an involuntary outpatient commitment at the time of discharge. Hopefully this will assist with improving compliance with medications and appointments as an outpatient, as he has chronic poor compliance , leading to frequent inpatient admissions and likely playing a role in his numerous arrests and incarcerations as well. - He will need a family meeting with his parents once he is less psychotic and able to participate. May also want to contact roommate prior to discharge to ensure there are no weapons and that the sword is secured (preferentially removed from the apartment). - Social work to contact the [facility] service unit to determine if he has case management services, and if not, to place a referral. He will also need outpatient psychiatric care, therapy, and other support services such as psych rehabilitation. 11/01 - Start Invega Sustenna 234 mg IM today and 156 mg IM on 11/04 - Continue Invega 3 mg HS 11/02 - Submitted 72 hour notice. Will attempt to encourage him to rescind and engage in ongoing treatment for severe psychosis, but may need to 302 if unwilling. - Continue Haldol and increase to 10 mg and Ativan (increased to 2 mg) both by mouth and IM prn for psychosis and agitation, as his behavior is escalating on the unit. - Social work attempted to arrange case management but was told he would have to schedule an intake first. Will contact the [facility] Friday to review that he will be on an outpatient involuntary commitment and will require [facility] services LOC. (2) Methamphetamine abuse As psychosis improves, will educate about the risks of ongoing substance abuse and recommendations for abstinence. (3) Cannabis abuse As psychosis improves, will educate about the risks of ongoing substance abuse and recommendations for abstinence. (4) Hypertension BP initially high in ER and h/o HTN, but has now come down, so will continue to monitor for now. Return to PCP for OP f/u. (5) Obesity Encourage healthy diet and exercise. Refer back to PCP for ongoing management. (6) S/P hardware removal 2 weeks s/p hardware removal R ankle. Appreciate ortho recs - cast placed, walking with walker, elevate as needed for swelling, moved toes frequently, keep cast dry when bathing. Follow-up 11/07/2016 at [facility] orth[facility]. 11/02 - Ortho contacted at patient's requests re: repeated demands to have cast removed. Appreciate recs/care. Discharge / Aftercare Planning Primary Care Physician: Name: Dr. Hines Visit Code E&M Code: 46246 Inventory Assets Strengths: Supportive father, willing for treatment Risk Factors Assessment Male: Yes : Yes /single/: Yes Higher / Fall in social status: No Access to guns: No (but reports there is a sword in his apartment) Health problems: Yes Mental Health Diagnoses: Yes Substance use disorders: Yes Previous attempt: Yes Family history of suicide: No Previous psychiatric stay: Yes Hopelessness: No Smoker: Yes Protective Factors Assessment Lutheran beliefs: No : No Responsible for young children: No Employed: No Stable relationships: No Supportive family: Yes Good rapport with provider: No Data Vital Signs Last 24 Hrs: Date Time Temp Pulse Resp B/P (MAP) Pulse Ox O2 Delivery O2 Flow Rate FiO2 11/02/16 06:37 36.4 45 17 137/70 Meds Administered Last 24 Hrs: Meds Administered (Past 24Hrs) Medications (Trade) Dose Ordered Sig/Rehana Route Start Time Stop Time Status Last Admin Dose Admin Paliperidone (Invega) 3 mg DAILY PO 11/01/16 09:00 12/01/16 08:59 11/01/16 09:13 3 MG Paliperidone (Invega) 3 mg 1113 ONCE PO 10/31/16 11:13 10/31/16 11:33 DC 10/31/16 11:52 3 MG Haloperidol (Haldol Tab) 5 mg Q4H PRN PO 10/31/16 11:15 11/30/16 11:14 11/01/16 16:22 5 MG Paliperidone Palmitate (Invega Sustenna) 234 mg ONE ONCE IM 11/01/16 12:00 11/01/16 12:13 DC 11/01/16 14:10 234 MG Lorazepam (Ativan Tab) 1 mg Q4H PRN PO 11/01/16 19:15 12/01/16 19:14 11/01/16 19:48 1 MG Problem Qualifiers (1) Schizoaffective disorder: Schizoaffective disorder type: bipolar Qualified Codes: F25.0 - Schizoaffective disorder, bipolar type
[2016-11-02] MEDS: PALIPERIDONE 3 MG TABCR PO SCH (09:13)
[2016-11-02] MEDS ORDERED: LORAZEPAM 1 MG TAB PO PRN (11:15)
[2016-11-02] MEDS ORDERED: HALOPERIDOL LACTATE 5 MG/ML 1 ML VIAL IM PRN (11:15)
[2016-11-02] MEDS ORDERED: LORAZEPAM 2 MG/ML 1 ML VIAL IM PRN (11:15)
[2016-11-02] MEDS ORDERED: HALOPERIDOL 5 MG TAB PO PRN (11:15)
[2016-11-02] MEDS ORDERED: BENZTROPINE MESYLATE 1 MG TAB PO PRN (12:15)
[2016-11-02] MEDS: ACETAMINOPHEN 325 MG TAB PO PRN (15:31)
--- NOTE | 2016-11-03 07:51 | Psychiatric Progress Notes ---
Progress Note Date of Service Nov 03, 2016. Interval History Diogo Hernández is a 25-year-old single male who lives in an apartment through [facility] in [place] with roommate, has a history of schizoaffective disorder bipolar type and substance abuse, and presented to the ER with police for psychosis on 10/30/2016. He was admitted on a 201 voluntary commitment, but we have filed for a 304 commitment with intent to discharge him on an outpatient commitment due to chronic noncompliance. Chief Complaint "I'm ready to leave here now". Subjective Patient was seen & assessed interval progress reviewed with nursing. Staff report he repeatedly demanded to have his cast removed yesterday, escalated and was threatening, and ortho was contacted, saw him, and removed the cast. He was walking laps around the unit in an agitated fashion to the point that his legs and feet hurt, but was resistant to staff suggestions to take a break and rest. He demonstrated high energy, was running and skipping around the unit at one point, making so much noise that the staff on the floor below called to complain. He remains disorganized and delusional, insisting that the cast was disrupting his spirituality, and saying he could not take any medications because he is allergic to all of them and they will kill him. He ultimately did accept prn benztropine and lorazepam. His father was updated by staff and was going to talk to the patient to encourage him to take medications. He was able to attend and participate in PM community meeting. He is refusing to rescind his 72 hour notice, saying he wants to go visit his daughter out of state. Today, he states that he doesn't want to take psychotropic medications anymore, because they will cause side effects, and doesn't feel he needs medications as all of his problems have been fixed by having the screw removed from his foot. He states that he knows the screw was causing headaches and hallucinations, causing him to hear voices, which he says were "attached to the [facility] narc unit, because of how spiritual I am I guess." He says that he needs to leave the hospital immediately, because "I'm getting custody of my daughter for the summer." He says he won't take any more medication, and then says he will take medication, but only if that means he will be immediately discharged. He admits that he has no outpatient providers, and says he is only interested in seeing a "family counseling Nondenominational therapist." He says he is here because of problems with his family, saying "I don't get to see them very much. I've seen many sexual therapists, I need more spiritual preferences, not so much medical doctrine, more spiritual." He becomes increasingly agitated as the interview progresses, demanding to be discharged and talking rapidly and loudly , not allowing this provider to speak. He admits that he's had suicidal thoughts, which she blames on the screw in his foot, and refuses to answer further questions. He was informed that I will be pursuing a 302 involuntary commitment as I do not feel he is ready for discharge and have concerns about his refusal to take medications, lack of outpatient care, unstable living environment, and ongoing schizoaffective symptoms. He threatened to lacey the hospital and demanded to talk to an state's attorney. Sleep Information Total Hours of Sleep: 8.00 Meal Information Percent of Breakfast Consumed: 100 Percent of Lunch Consumed: 70 Percent of Dinner Consumed: 75 Mental Status Exam During interview pt is: uncooperative, other (angry, yelling, agitated) Appearance: appropriately dressed, disheveled Eye contact is: poor Motor behavior is: steady gait & station, no abnormal motor movements Speech: is pressured, loud, other (angry tone, rapid excessive speech, interrupts) Affect: irritable, angry, constricted, other (inappropriate and aggressive) Mood is: irritable, angry Thought process: looseness of associations, perseveration (on leaving the hospital), concrete Thought content: preoccupation, paranoid, delusions (of persecution), persecution Suicidal thought are: present (refuses to elaborate, blames them on the screw in his foot) Hallucinations: auditory, denies visual Cognition: other (all spheres impaired by psychosis) Intelligence estimated to be: average Insight: severely impaired Judgement: severely impaired Summary of Past History The patient had been improving slightly since admission, but has now decompensated, has been more agitated, disorganized, and paranoid. Yesterday he was fixated on wanting his cast to be removed, as he thought it was interfering with his spirituality. He continues to escalate, has psychomotor agitation, is paranoid, delusional, and becoming increasingly uncooperative with treatment. He is now refusing to continue the Invega Sustenna loading, stating he does not need psychotropic medications and is demanding to leave the hospital. He has no outpatient providers, is psychotic and agitated with labile mood, and is unable to rationally manipulate information. He has a history of violence, and has been threatening at times on the unit. We will pursue a 302 involuntary commitment, and will need to cancel the 304 commitment hearing was scheduled for later this week. He was started on Invega Sustenna on 10/31/2016, and is due for the second loading dose tomorrow. Continue Invega 3 mg HS for now. He may require involuntary outpatient commitment due to his long history of noncompliance with treatment leading to multiple hospitalizations, arrest, incarcerations, and chronic severe symptoms of mental illness. Medication Trials (1) Past Psych Meds Include but not limited to (from records, patient poor historian): lithium Depakote Haldol Trileptal Ativan Ambien Abilify Risperdal Zyprexa Risperdal Consta Last Edited By: Nadine Kapoor on Oct 31, 2016 10:56 Impression 25-year-old single white male with a history of schizoaffective disorder bipolar type, chronic treatment noncompliance, and polysubstance abuse who presented with psychotic symptoms. Collateral information from his father reveals that he has continued with a string of inpatient hospitalizations and incarcerations, has been chronically noncompliant with outpatient treatment and medications, and has been out of treatment for about the past 7 months. He is currently without providers and on no medications. He requires inpatient treatment due to risk of harm to himself, as he endorses suicidal thoughts with multiple plans, and also feels he is in danger and that his roommate wants to kill him with a knife. Inpatient treatment as the least restrictive and most appropriate venue at this time. The recommendations are for a long-acting injectable antipsychotic, involuntary outpatient 304 commitment, and arranging outpatient services. Plan (1) Schizoaffective disorder - Get collateral information from patient's father, and obtain records of any treatment he has received since his last hospitalization here in 2014. 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 - The patient is willing to take risperidone, which he indicates he has been on in the past and was helpful. I will start 1 mg twice a day and 1mg q 4 hrs prn psychosis, check fasting labs, and we will titrate as tolerated to an effective dose. He may benefit from a long-acting injectable. - Medically necessary private room for psychosis. 10/31 - Diagnosis clarified and collateral obtained from father (see above). - Change risperidone to paliperidone, with a plan to start a long-acting injectable in the next several days, as soon as the patient is willing to accept it. He indicated a willingness to get the shot, but then stated that he wanted to wait until his records were reviewed and he took the oral medication first. - Discontinue when necessary risperidone and start Haldol 5 mg when necessary. His father reports he has been on this medication at multiple points in the past. - Fasting lipid profile performed today was normal, and fasting glucose was slightly elevated at 101. - File for a 304 inpatient commitment with a hearing to be held and 5 business days, this will be converted to an involuntary outpatient commitment at the time of discharge. Hopefully this will assist with improving compliance with medications and appointments as an outpatient, as he has chronic poor compliance , leading to frequent inpatient admissions and likely playing a role in his numerous arrests and incarcerations as well. - He will need a family meeting with his parents once he is less psychotic and able to participate. May also want to contact roommate prior to discharge to ensure there are no weapons and that the sword is secured (preferentially removed from the apartment). - Social work to contact the [facility] service unit to determine if he has case management services, and if not, to place a referral. He will also need outpatient psychiatric care, therapy, and other support services such as psych rehabilitation. 11/01 - Start Invega Sustenna 234 mg IM today and 156 mg IM on 11/04 - Continue Invega 3 mg HS 11/02 - Submitted 72 hour notice. Will attempt to encourage him to rescind and engage in ongoing treatment for severe psychosis, but may need to 302 if unwilling. - Continue Haldol and increase to 10 mg and Ativan (increased to 2 mg) both by mouth and IM prn for psychosis and agitation, as his behavior is escalating on the unit. - Social work attempted to arrange case management but was told he would have to schedule an intake first. Will contact the [facility] Friday to review that he will be on an outpatient involuntary commitment and will require BCM services LOC. 11/03 - Refusing to rescind 72 hour notice, increasingly agitated and psychotic, demanding to leave, and stating he will refuse all medications. Placed on a 302 involuntary commitment. May need to consider medications over objection, which are indicated due to history of good response to antipsychotic medication , current severe psychotic symptoms impairing his ability to function or make informed decisions about treatment, and significant risks (suicide, violence towards others, worsening condition and inability to function) associated with ongoing symptoms and refusal of appropriate treatment. (2) Methamphetamine abuse As psychosis improves, will educate about the risks of ongoing substance abuse and recommendations for abstinence. (3) Cannabis abuse As psychosis improves, will educate about the risks of ongoing substance abuse and recommendations for abstinence. (4) Hypertension BP initially high in ER and h/o HTN, but has now come down, so will continue to monitor for now. Return to PCP for OP f/u. 11/03 - continues to have episodic bradycardia and hypertension, likely exacerbated by periods of agitation. Will continue to monitor. (5) Obesity Encourage healthy diet and exercise. Refer back to PCP for ongoing management. (6) S/P hardware removal 2 weeks s/p hardware removal R ankle. Appreciate ortho recs - cast placed, walking with walker, elevate as needed for swelling, moved toes frequently, keep cast dry when bathing. Follow-up 11/07/2016 at [facility] orthopedics. 11/02 - Ortho contacted at patient's requests re: repeated demands to have cast removed. Appreciate recs/care. Discharge / Aftercare Planning Primary Care Physician: Name: Dr. Hines Visit Code E&M Code: 73655 Inventory Assets Strengths: Supportive father, willing for treatment Risk Factors Assessment Male: Yes : Yes /single/: Yes Higher / Fall in social status: No Access to guns: No (but reports there is a sword in his apartment) Health problems: Yes Mental Health Diagnoses: Yes Substance use disorders: Yes Previous attempt: Yes Family history of suicide: No Previous psychiatric stay: Yes Hopelessness: No Smoker: Yes Protective Factors Assessment Rastafari beliefs: No : No Responsible for young children: No Employed: No Stable relationships: No Supportive family: Yes Good rapport with provider: No Data Meds Administered Last 24 Hrs: Meds Administered (Past 24Hrs) Medications (Trade) Dose Ordered Sig/Rehana Route Start Time Stop Time Status Last Admin Dose Admin Paliperidone (Invega) 3 mg DAILY PO 11/01/16 09:00 12/01/16 08:59 11/02/16 09:13 3 MG Paliperidone Palmitate (Invega Sustenna) 234 mg ONE ONCE IM 11/01/16 12:00 11/01/16 12:13 DC 11/01/16 14:10 234 MG Lorazepam (Ativan Tab) 1 mg Q4H PRN PO 11/01/16 19:15 11/02/16 09:47 DC 11/01/16 19:48 1 MG Lorazepam (Ativan Tab) 2 mg Q4H PRN PO 11/02/16 11:15 12/01/16 19:14 11/02/16 17:36 2 MG Benztropine Mesylate (Cogentin Tab) 1 mg Q4H PRN PO 11/02/16 12:15 12/02/16 12:14 11/02/16 17:36 1 MG Problem Qualifiers (1) Schizoaffective disorder: Schizoaffective disorder type: bipolar Qualified Codes: F25.0 - Schizoaffective disorder, bipolar type
[2016-11-03 08:36] VITALS: BP 161/79; PULSE 87
[2016-11-03] MEDS: PALIPERIDONE 3 MG TABCR PO SCH (09:00)
[2016-11-03] MEDS: ACETAMINOPHEN 325 MG TAB PO PRN (17:25)
[2016-11-04 06:29] VITALS: BP_SYST 131; BP_SYST 135; BP_DIAS 74; BP_DIAS 97; PULSE 75; PULSE 76; TEMP 36.4
[2016-11-04] MEDS: PALIPERIDONE 3 MG TABCR PO SCH (08:22)
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
[2016-11-04] MEDS ORDERED: INVEGA SUSTENNA 156 MG/ML 1 ML SYR IM ONE (12:00)
[2016-11-04] MEDS: ACETAMINOPHEN 325 MG TAB PO PRN (15:03)
[2016-11-04 15:37] LABS: SYNTHETIC CANNABINOIDS QL URIN NEGATIVE (Negative)
[2016-11-05 06:49] VITALS: BP_SYST 142; BP_SYST 150; BP_DIAS 77; BP_DIAS 88; PULSE 79; PULSE 81; TEMP 36.5
[2016-11-05] MEDS: ACETAMINOPHEN 325 MG TAB PO PRN (07:15)
[2016-11-05] MEDS: PALIPERIDONE 3 MG TABCR PO SCH (09:00)
--- NOTE | 2016-11-05 09:15 | Consultant Recommendations ---
Counter Hand Recommendations Date of Service The date of consultation cast removal 11/02/2016 date of dictation 11/05/2016 Counter Hand Recommendations I was able see evaluate ernst scales 11/02/2016. Received call from the nursing station along with his father is a delightful young boy with severe psychoses. I saw and examined him on the morning of November 02 he was quite desperate for the removal of his cast. I removed the cast without incident he was immediately pleased placing the boot for support walker for support Dr. Bangura.
--- NOTE | 2016-11-05 12:17 | Psychiatric Progress Notes ---
Progress Note Date of Service Nov 05, 2016. Interval History Diogo Hernández is a 25-year-old single male who has at times reported being homeless and at other times says he lives in an apartment through [facility] in [place] with roommate, has a history of schizoaffective disorder bipolar type, noncompliance with treatment, and substance abuse, and presented to the ER with police for psychosis on 10/30/2016. He was admitted on a 201 voluntary commitment, but had to be placed on an involuntary 302 commitment on 11/02/16 after he started refusing medications, decompensated, and demanded to leave. He is on a 303 as of 11/04/16. Chief Complaint "I don't know why I am in hospital. I don't need to be here". Subjective Patient was seen & assessed interval progress reviewed with Treatment Team. Patient had a 303 hearing yesterday that was approved for him to remain hospitalized here on mental health unit. Patient has minimal insight into need to be in hospital. He had accepted first injection of Invega Sustenna and has refused second injection. He reports sense of shakiness inside his body after receiving first dose of Invega Sustenna. He took a dose of Cogentin and had some relief of shakiness but has refused subsequent doses. He was guarded during interview. Due to his acute paranoia patient was seen with nurse, Michael, present during interview. Patient expressed fear that staff were going to inject him with HIV virus. Review of Systems Psych: denies symptoms other than stated above Constitutional: denied Cardiovascular: denied GI: denied Neurologic: generalized shakiness Remainder of 10 body systems also reviewed and denied other than noted above. Sleep Information Total Hours of Sleep: 6.50 Meal Information Percent of Breakfast Consumed: 100 Percent of Lunch Consumed: 100 Percent of Dinner Consumed: 100 Mental Status Exam During interview pt is: alert and oriented, guarded, other (calmer today, but only partially cooperative, at times answers with unrelated information due to disorganization) Appearance: appropriately dressed, disheveled Eye contact is: fair Motor behavior is: steady gait & station, no abnormal motor movements Speech: normal in rate, rhythm & volume Affect: blunted, irritable, other (incongruent with stated mood) Mood is: other ("good") Thought process: tangential, looseness of associations, perseveration (on leaving the hospital), concrete, other (incorrect word usage) Thought content: preoccupation, paranoid, delusions (of persecution, that the screw in his foot was causing his mental illness and headaches, that his roommate in his apartment may want to kill him), persecution Suicidal thought are: denied Homicidal thoughts are: denied (but feels he is in danger from his roommate) Hallucinations: denies auditory, denies visual Cognition: other (all spheres impaired by psychosis) Intelligence estimated to be: average Insight: severely impaired Judgement: severely impaired Summary of Past History The patient had been improving slightly since admission, but has now decompensated, has been more agitated, disorganized, and paranoid. He became fixated on wanting his cast to be removed in a psychotic fashion, as he thought it was interfering with his spirituality and causing hallucinations. He continued to escalate, has psychomotor agitation, is paranoid, delusional, and becoming increasingly uncooperative with treatment. He is now refusing to continue the Invega Sustenna loading, stating he does not need psychotropic medications and is demanding to leave the hospital. He has no outpatient providers, is psychotic and agitated with labile mood, and is unable to rationally manipulate information. He has a history of violence, and has been threatening at times on the unit. He was started on Invega Sustenna on 2016, and is due for the second loading dose today, but is now refusing it, and is refusing oral medication. He was placed on a 302 involuntary commitment on 11/03/2016, and we will schedule a 303 hearing and pursue medications over objection. We have recommended a 304 involuntary outpatient commitment, due to his long history of noncompliance as well. Medication Trials (1) Past Psych Meds Include but not limited to (from records, patient poor historian): lithium Depakote Haldol Trileptal Ativan Ambien Abilify Risperdal Zyprexa Risperdal Consta Last Edited By: Nadine Kapoor on Oct 31, 2016 10:56 Impression 25-year-old single white male with a history of schizoaffective disorder bipolar type, chronic treatment noncompliance, and polysubstance abuse who presented with psychotic symptoms. Collateral information from his father reveals that he has continued with a string of inpatient hospitalizations and incarcerations, has been chronically noncompliant with outpatient treatment and medications, and has been out of treatment for about the past 7 months. He is currently without providers and on no medications. He requires inpatient treatment due to risk of harm to himself, as he has endorsed suicidal thoughts with multiple plans, and also feels he is in danger and that his roommate wants to kill him with a knife. Inpatient treatment as the least restrictive and most appropriate venue at this time. The recommendations are for a long-acting injectable antipsychotic, involuntary outpatient 304 commitment, and arranging outpatient services. He is on a 303 as of 11/04/16. Plan (1) Schizoaffective disorder - Get collateral information from patient's father, and obtain records of any treatment he has received since his last hospitalization here in 2014. 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 - The patient is willing to take risperidone, which he indicates he has been on in the past and was helpful. I will start 1 mg twice a day and 1mg q 4 hrs prn psychosis, check fasting labs, and we will titrate as tolerated to an effective dose. He may benefit from a long-acting injectable. - Medically necessary private room for psychosis. 10/31 - Diagnosis clarified and collateral obtained from father (see above). - Change risperidone to paliperidone, with a plan to start a long-acting injectable in the next several days, as soon as the patient is willing to accept it. He indicated a willingness to get the shot, but then stated that he wanted to wait until his records were reviewed and he took the oral medication first. - Discontinue when necessary risperidone and start Haldol 5 mg when necessary. His father reports he has been on this medication at multiple points in the past. - Fasting lipid profile performed today was normal, and fasting glucose was slightly elevated at 101. - File for a 304 inpatient commitment with a hearing to be held and 5 business days, this will be converted to an involuntary outpatient commitment at the time of discharge. Hopefully this will assist with improving compliance with medications and appointments as an outpatient, as he has chronic poor compliance , leading to frequent inpatient admissions and likely playing a role in his numerous arrests and incarcerations as well. - He will need a family meeting with his parents once he is less psychotic and able to participate. May also want to contact roommate prior to discharge to ensure there are no weapons and that the sword is secured (preferentially removed from the apartment). - Social work to contact the [facility] service unit to determine if he has case management services, and if not, to place a referral. He will also need outpatient psychiatric care, therapy, and other support services such as psych rehabilitation. 11/01 - Start Invega Sustenna 234 mg IM today and 156 mg IM on 11/04 - Continue Invega 3 mg HS 11/02 - Submitted 72 hour notice. Will attempt to encourage him to rescind and engage in ongoing treatment for severe psychosis, but may need to 302 if unwilling. - Continue Haldol and increase to 10 mg and Ativan (increased to 2 mg) both by mouth and IM prn for psychosis and agitation, as his behavior is escalating on the unit. - Social work attempted to arrange case management but was told he would have to schedule an intake first. Will contact the [facility] Friday to review that he will be on an outpatient involuntary commitment and will require [facility] services LOC. 11/03 - Refusing to rescind 72 hour notice, increasingly agitated and psychotic, demanding to leave, and stating he will refuse all medications. Placed on a 302 involuntary commitment. May need to consider medications over objection, which are indicated due to history of good response to antipsychotic medication , current severe psychotic symptoms impairing his ability to function or make informed decisions about treatment, and significant risks (suicide, violence towards others, worsening condition and inability to function) associated with ongoing symptoms and refusal of appropriate treatment. 11/04 - Patient now refusing both oral Invega and his second loading dose of Invega Sustenna. We again reviewed the indication for this medication today, as well as the rest of his treatment plan, which he disagrees with this he does not believe he has a mental illness any longer, feeling that he was cured when the screw was removed from his foot. He has no outpatient providers, no supports in the community, lacks insight, and continues to display psychotic symptoms and an inability to provide for his own basic needs including health, medications, safety, and housing (as he remains paranoid about his roommate who he thinks is in the special forces and may wish him harm). File for a 303 involuntary commitment, and recommend medications over objection, as he has responded to antipsychotics in the past, and without them is unable to rationally manipulate information, ask on his paranoia and delusions, and has had numerous arrests and incarcerations. He will be seen by Dr. Enriquez tomorrow, who can give a second opinion on medications over objection. If granted, he can receive his second Sustenna shot and the oral Invega can be discontinued. 11/05 -Patient remains paranoid at this time. He has responded to antipsychotics in the past. Without antipsychotic medication he is unable to make rational decisions and has been unable to maintain his mental health stability and care for himself outside of hospital setting. His paranoia includes an expressed belief that he thinks staff may be attempting to inject him with HIV virus which further interferes with his ability to comply with treatment and stabilize his psychosis. It is my medical opinion that medication over objection with Invega Sustenna should be provided as this is the least restrictive treatment option at this time. (2) Methamphetamine abuse As psychosis improves, will educate about the risks of ongoing substance abuse and recommendations for abstinence. (3) Cannabis abuse As psychosis improves, will educate about the risks of ongoing substance abuse and recommendations for abstinence. (4) Hypertension BP initially high in ER and h/o HTN, but has now come down, so will continue to monitor for now. Return to PCP for OP f/u. 11/03 - continues to have episodic bradycardia and hypertension, likely exacerbated by periods of agitation. Will continue to monitor. (5) Obesity Encourage healthy diet and exercise. Refer back to PCP for ongoing management. (6) S/P hardware removal 2 weeks s/p hardware removal R ankle. Appreciate ortho recs - cast placed, walking with walker, elevate as needed for swelling, moved toes frequently, keep cast dry when bathing. Follow-up 11/07/2016 at [facility] orthopedics. 11/02 - Ortho contacted at patient's requests re: repeated demands to have cast removed. Appreciate recs/care. 11/04 - Patient again reminded of the orthopedic's surgeon's recommendations to limit weight bearing on his foot, elevate the foot at times use ice and anti- inflammatories for pain. He continues to walk laps around the unit despite reporting pain. Discharge / Aftercare Planning Primary Care Physician: Name: Dr Mullins Psychiatrist: Name: You will be assignded a Psyhiatrist after your intake appointment michelle Archer Therapist: Name: [facility] Intake Suzi Bowman Date of Appointment: Nov 19, 2016 Time of Appointment: 10:00am Visit Code E&M Code: 74448 Inventory Assets Strengths: Supportive father, willing for treatment Risk Factors Assessment Male: Yes : Yes /single/: Yes Higher / Fall in social status: No Access to guns: No (but reports there is a sword in his apartment) Health problems: Yes Mental Health Diagnoses: Yes Substance use disorders: Yes Previous attempt: Yes Family history of suicide: No Previous psychiatric stay: Yes Hopelessness: No Smoker: Yes Protective Factors Assessment Anglican beliefs: Yes : No Responsible for young children: No Employed: No Stable relationships: No Supportive family: Yes Good rapport with provider: No Data Vital Signs Last 24 Hrs: Date Time Temp Pulse Resp B/P (MAP) Pulse Ox O2 Delivery O2 Flow Rate FiO2 11/05/16 06:49 36.5 81 16 142/77 79 150/88 Problem Qualifiers (1) Schizoaffective disorder: Schizoaffective disorder type: bipolar Qualified Codes: F25.0 - Schizoaffective disorder, bipolar type
[2016-11-06] MEDS: ACETAMINOPHEN 325 MG TAB PO PRN ×3 (01:46→21:33)
[2016-11-06 06:49] VITALS: BP_SYST 141; BP_SYST 145; BP_DIAS 100; BP_DIAS 97; PULSE 75; PULSE 96; TEMP 36.5
[2016-11-06] MEDS ORDERED: INVEGA SUSTENNA 156 MG/ML 1 ML SYR IM ONE (08:15)
[2016-11-06] MEDS: PALIPERIDONE 3 MG TABCR PO SCH (08:26)
--- NOTE | 2016-11-06 10:18 | Psychiatric Progress Notes ---
Progress Note Date of Service Nov 06, 2016. Interval History Diogo Hernández is a 25-year-old single male who has at times reported being homeless and at other times says he lives in an apartment through [facility] in [place] with roommate, has a history of schizoaffective disorder bipolar type, noncompliance with treatment, and substance abuse, and presented to the ER with police for psychosis on 10/30/2016. He was admitted on a 201 voluntary commitment, but had to be placed on an involuntary 302 commitment on 11/02/16 after he started refusing medications, decompensated, and demanded to leave. He is on a 303 as of 11/04/16. Chief Complaint "I'm frustrated". Subjective Patient was seen & assessed interval progress reviewed with Treatment Team. Patient seen after physical restraint for meds over objection. He has been refusing all meds and today, based on 2 physician recommendations, Sustenna IM was administered, requiring physical hold only long enough to administer the injection. AFterward he was upset, but did not act out. There were no injuries to his person. He ambulates to the interview room, where he angrily explains that he feels we have not treated him fairly, have made "false allegations" about he being suicidal, and feeling that no one explained why he needed the shot. He becomes agitated when talking about other people's reports of him, and when encouraged to calm down, he walks out of the room. He returned several minutes later asking is we could continue talking. He was calmer and able to talk about his treatment. We discussed the need for medications and treatment compliance. We outlined the treatment including seeing a psychiatrist. He is asking to see a [employer] counselor and says that he thinks we have discriminated against him because he is a [employer]. We also talked about the 304 hearing which has yet to be scheduled. AFter discussion, he is willing to take his meds cooperatively and work toward a discharge to outpatient on a 304. Today he adamantly denies SI/HI, aud/vis hallucinations. He remains religiously preoccupied. Review of Systems Constitutional: No fever, No chills, No sweats, No weight loss, No weakness, No fatigue, No problem reported ENT: No hearing loss, No unusual epistaxis, No nasal symptoms, No sore throat, No tinnitus, No dental problems, No trouble swallowing, No problem reported Respiratory: No cough, No sputum, No wheezing, No shortness of breath, No dyspnea on exertion, No dyspnea at rest, No hemoptysis, No problem reported Cardiovascular: No chest pain, No orthopnea, No PND, No edema, No claudication , No palpitations, No problem reported Abdomen: No pain, No nausea, No vomiting, No diarrhea, No constipation, No GI bleeding, No problem reported Musculoskeletal: + problem reported (foot pain s/p screw removal, unwilling to wear a cast) Neurologic: No memory loss, No paralysis, No weakness, No numbness/tingling, No vertigo, No balance problems, No problem reported Psychiatric: + problem reported (agitation) Integumentary: No rash, No itch, No new/changing skin lesions, No color change , No bleeding, No problem reported Sleep Information Total Hours of Sleep: 2.50 Meal Information Percent of Breakfast Consumed: 100 Percent of Lunch Consumed: 100 Percent of Dinner Consumed: 100 Mental Status Exam During interview pt is: alert and oriented, other (angry) Appearance: appropriately dressed Eye contact is: good Motor behavior is: steady gait & station, no abnormal motor movements, psychomotor agitation Speech: loud, other (angry) Affect: irritable Mood is: angry Thought process: tangential, looseness of associations, perseveration (on leaving the hospital), concrete, other (incorrect word usage) Thought content: preoccupation, paranoid, delusions (of persecution, that the screw in his foot was causing his mental illness and headaches, that his roommate in his apartment may want to kill him), persecution Suicidal thought are: denied Homicidal thoughts are: denied (but feels he is in danger from his roommate) Hallucinations: denies auditory, denies visual Cognition: other (all spheres impaired by psychosis) Intelligence estimated to be: average Insight: severely impaired Judgement: severely impaired Summary of Past History The patient had been improving slightly since admission, but has now decompensated, has been more agitated, disorganized, and paranoid. He became fixated on wanting his cast to be removed in a psychotic fashion, as he thought it was interfering with his spirituality and causing hallucinations. He continued to escalate, has psychomotor agitation, is paranoid, delusional, and becoming increasingly uncooperative with treatment. He is now refusing to continue the Invega Sustenna loading, stating he does not need psychotropic medications and is demanding to leave the hospital. He has no outpatient providers, is psychotic and agitated with labile mood, and is unable to rationally manipulate information. He has a history of violence, and has been threatening at times on the unit. He was started on Invega Sustenna on 2016, and is due for the second loading dose today, but is now refusing it, and is refusing oral medication. He was placed on a 302 involuntary commitment on 11/03/2016, and we will schedule a 303 hearing and pursue medications over objection. We have recommended a 304 involuntary outpatient commitment, due to his long history of noncompliance as well. Medication Trials (1) Past Psych Meds Include but not limited to (from records, patient poor historian): lithium Depakote Haldol Trileptal Ativan Ambien Abilify Risperdal Zyprexa Risperdal Consta Last Edited By: Nadine Kapoor on Oct 31, 2016 10:56 Impression The patient received the second of his Sustenna shots, over objection today, requiring physical hold. no injuries noted. He was able to calm down and be cooperative with a discussion regarding treatment, and ultimately said that he would cooperate with meds and is aware that we will pursue a 304 to OP. He continues to make delusional associations between the screw that was in his ankle and his MANLEY's and has no insight. We will continue current meds plans, explore a [employer] counselor. Will file for 304 tomorrow. Plan (1) Schizoaffective disorder - Get collateral information from patient's father, and obtain records of any treatment he has received since his last hospitalization here in 2014. 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 - The patient is willing to take risperidone, which he indicates he has been on in the past and was helpful. I will start 1 mg twice a day and 1mg q 4 hrs prn psychosis, check fasting labs, and we will titrate as tolerated to an effective dose. He may benefit from a long-acting injectable. - Medically necessary private room for psychosis. 10/31 - Diagnosis clarified and collateral obtained from father (see above). - Change risperidone to paliperidone, with a plan to start a long-acting injectable in the next several days, as soon as the patient is willing to accept it. He indicated a willingness to get the shot, but then stated that he wanted to wait until his records were reviewed and he took the oral medication first. - Discontinue when necessary risperidone and start Haldol 5 mg when necessary. His father reports he has been on this medication at multiple points in the past. - Fasting lipid profile performed today was normal, and fasting glucose was slightly elevated at 101. - File for a 304 inpatient commitment with a hearing to be held and 5 business days, this will be converted to an involuntary outpatient commitment at the time of discharge. Hopefully this will assist with improving compliance with medications and appointments as an outpatient, as he has chronic poor compliance , leading to frequent inpatient admissions and likely playing a role in his numerous arrests and incarcerations as well. - He will need a family meeting with his parents once he is less psychotic and able to participate. May also want to contact roommate prior to discharge to ensure there are no weapons and that the sword is secured (preferentially removed from the apartment). - Social work to contact the [facility] service unit to determine if he has case management services, and if not, to place a referral. He will also need outpatient psychiatric care, therapy, and other support services such as psych rehabilitation. 11/01 - Start Invega Sustenna 234 mg IM today and 156 mg IM on 11/04 - Continue Invega 3 mg HS 11/02 - Submitted 72 hour notice. Will attempt to encourage him to rescind and engage in ongoing treatment for severe psychosis, but may need to 302 if unwilling. - Continue Haldol and increase to 10 mg and Ativan (increased to 2 mg) both by mouth and IM prn for psychosis and agitation, as his behavior is escalating on the unit. - Social work attempted to arrange case management but was told he would have to schedule an intake first. Will contact the [facility] Friday to review that he will be on an outpatient involuntary commitment and will require [facility] services LOC. 11/03 - Refusing to rescind 72 hour notice, increasingly agitated and psychotic, demanding to leave, and stating he will refuse all medications. Placed on a 302 involuntary commitment. May need to consider medications over objection, which are indicated due to history of good response to antipsychotic medication , current severe psychotic symptoms impairing his ability to function or make informed decisions about treatment, and significant risks (suicide, violence towards others, worsening condition and inability to function) associated with ongoing symptoms and refusal of appropriate treatment. 11/04 - Patient now refusing both oral Invega and his second loading dose of Invega Sustenna. We again reviewed the indication for this medication today, as well as the rest of his treatment plan, which he disagrees with this he does not believe he has a mental illness any longer, feeling that he was cured when the screw was removed from his foot. He has no outpatient providers, no supports in the community, lacks insight, and continues to display psychotic symptoms and an inability to provide for his own basic needs including health, medications, safety, and housing (as he remains paranoid about his roommate who he thinks is in the special forces and may wish him harm). File for a 303 involuntary commitment, and recommend medications over objection, as he has responded to antipsychotics in the past, and without them is unable to rationally manipulate information, ask on his paranoia and delusions, and has had numerous arrests and incarcerations. He will be seen by Dr. Gomez tomorrow, who can give a second opinion on medications over objection. If granted, he can receive his second Sustenna shot and the oral Invega can be discontinued. 11/05 -Patient remains paranoid at this time. He has responded to antipsychotics in the past. Without antipsychotic medication he is unable to make rational decisions and has been unable to maintain his mental health stability and care for himself outside of hospital setting. His paranoia includes an expressed belief that he thinks staff may be attempting to inject him with HIV virus which further interferes with his ability to comply with treatment and stabilize his psychosis. It is my medical opinion that medication over objection with Invega Sustenna should be provided as this is the least restrictive treatment option at this time. 11/06 - Sustenna 156 mg. IM today over objection based on the recommendations of Dr. Kapoor and Dr. Gomez - Will continue Invega 3 mg. HS for now - Remains on a 303, and will file for 304 this week. (2) Methamphetamine abuse As psychosis improves, will educate about the risks of ongoing substance abuse and recommendations for abstinence. (3) Cannabis abuse As psychosis improves, will educate about the risks of ongoing substance abuse and recommendations for abstinence. (4) Hypertension BP initially high in ER and h/o HTN, but has now come down, so will continue to monitor for now. Return to PCP for OP f/u. 11/03 - continues to have episodic bradycardia and hypertension, likely exacerbated by periods of agitation. Will continue to monitor. (5) Obesity Encourage healthy diet and exercise. Refer back to PCP for ongoing management. (6) S/P hardware removal 2 weeks s/p hardware removal R ankle. Appreciate ortho recs - cast placed, walking with walker, elevate as needed for swelling, moved toes frequently, keep cast dry when bathing. Follow-up 11/07/2016 at [facility] orthopedics. 11/02 - Ortho contacted at patient's requests re: repeated demands to have cast removed. Appreciate recs/care. 11/04 - Patient again reminded of the orthopedic's surgeon's recommendations to limit weight bearing on his foot, elevate the foot at times use ice and anti- inflammatories for pain. He continues to walk laps around the unit despite reporting pain. Discharge / Aftercare Planning Primary Care Physician: Name: Dr Mullins Psychiatrist: Name: You will be assignded a Psyhiatrist after your intake appointment w/ Suzi Therapist: Name: [facility] Intake Suzi Bowman Date of Appointment: Nov 19, 2016 Time of Appointment: 10:00am Visit Code E&M Code: 84663 Inventory Assets Strengths: Supportive father, willing for treatment Risk Factors Assessment Male: Yes : Yes /single/: Yes Higher / Fall in social status: No Access to guns: No (but reports there is a sword in his apartment) Health problems: Yes Mental Health Diagnoses: Yes Substance use disorders: Yes Previous attempt: Yes Family history of suicide: No Previous psychiatric stay: Yes Hopelessness: No Smoker: Yes Protective Factors Assessment Anabaptism beliefs: Yes : No Responsible for young children: No Employed: No Stable relationships: No Supportive family: Yes Good rapport with provider: No Data Vital Signs Last 24 Hrs: Date Time Temp Pulse Resp B/P (MAP) Pulse Ox O2 Delivery O2 Flow Rate FiO2 11/06/16 06:49 36.5 96 16 141/97 75 145/100 Meds Administered Last 24 Hrs: Meds Administered (Past 24Hrs) Medications (Trade) Dose Ordered Sig/Rehana Route Start Time Stop Time Status Last Admin Dose Admin Paliperidone Palmitate (Invega Sustenna) 156 mg NOW ONCE IM 11/06/16 08:15 11/06/16 08:39 DC 11/06/16 09:40 156 MG Lab Results Last 24 Hrs: 10/30/16 08:50 Red Blood Count 5.35, Mean Corpuscular Volume 82.6, Mean Corpuscular Hemoglobin 29.5, Mean Corpuscular Hemoglobin Concent 35.7, Mean Platelet Volume 9.6, Neutrophils (%) (Auto) 68.6, Lymphocytes (%) (Auto) 22.2, Monocytes (%) (Auto) 7.8, Eosinophils (%) (Auto) 0.6, Basophils (%) (Auto) 0.5, Neutrophils # (Auto) 4.24, Lymphocytes # (Auto) 1.37, Monocytes # (Auto) 0.48, Eosinophils # (Auto) 0.04, Basophils # (Auto) 0.03 10/30/16 08:50 Test 10/30/16 08:50 10/31/16 08:01 White Blood Count 6.18 K/uL (4.8-10.8) Red Blood Count 5.35 M/uL (4.7-6.1) Hemoglobin 15.8 g/dL (14.0-18.0) Hematocrit 44.2 % (42-52) Mean Corpuscular Volume 82.6 fL (80-100) Mean Corpuscular Hemoglobin 29.5 pg (25-34) Mean Corpuscular Hemoglobin Concent 35.7 g/dl (32-36) Platelet Count 228 K/uL (130-400) Mean Platelet Volume 9.6 fL (7.4-10.4) Neutrophils (%) (Auto) 68.6 % Lymphocytes (%) (Auto) 22.2 % Monocytes (%) (Auto) 7.8 % Eosinophils (%) (Auto) 0.6 % Basophils (%) (Auto) 0.5 % Neutrophils # (Auto) 4.24 K/uL (1.4-6.5) Lymphocytes # (Auto) 1.37 K/uL (1.2-3.4) Monocytes # (Auto) 0.48 K/uL (0.11-0.59) Eosinophils # (Auto) 0.04 K/uL (0-0.5) Basophils # (Auto) 0.03 K/uL (0-0.2) RDW Standard Deviation 37.4 fL (36.4-46.3) RDW Coefficient of Variation 12.5 % (11.5-14.5) Immature Granulocyte % (Auto) 0.3 % Immature Granulocyte # (Auto) 0.02 K/uL (0.00-0.02) Urine Color YELLOW Urine Appearance CLEAR (CLEAR) Urine pH 6.5 (4.5-7.5) Urine Specific [place] 1.027 (1.000-1.030) Urine Protein NEG (NEG) Urine Glucose (UA) NEG (NEG) Urine Ketones NEG (NEG) Urine Occult Blood NEG (NEG) Urine Nitrite NEG (NEG) Urine Bilirubin NEG (NEG) Urine Urobilinogen NEG (NEG) Urine Leukocyte Esterase NEG (NEG) Anion Gap 8.0 mmol/L (3-11) Est Creatinine Clear Calc Drug Dose 139.8 ml/min Estimated GFR () 120.7 Estimated GFR (Non- 104.1 BUN/Creatinine Ratio 13.0 (10-20) Calcium Level 8.9 mg/dl (8.5-10.1) Total Bilirubin 0.8 mg/dl (0.2-1) Direct Bilirubin 0.2 mg/dl (0-0.2) Aspartate Amino Transf (AST/SGOT) 12 U/L (15-37) Alanine Aminotransferase (ALT/SGPT) 23 U/L (12-78) Alkaline Phosphatase 74 U/L (45-117) Total Protein 7.2 gm/dl (6.4-8.2) Albumin 3.9 gm/dl (3.4-5.0) Thyroid Stimulating Hormone (TSH) 1.830 uIu/ml (0.300-4.500) Urine Synthetic Stimulants see note Salicylates Level < 1.7 mg/dl (2.8-20) Urine Opiates Screen NEG (NEG) Urine Methadone, Qualitative NEG (NEG) Acetaminophen Level < 2 ug/ml (10-30) Urine Barbiturates NEG (NEG) Urine Phencyclidine (PCP) Level NEG (NEG) Ur Amphetamine/Methamphetamine NEG (NEG) MDMA (Ecstasy) Screen NEG (NEG) Urine Benzodiazepines Screen NEG (NEG) Urine Cocaine Metabolite NEG (NEG) Cannabinoids Comment see note Urine Synthetic Cannabinoids NEGATIVE (Negative) Ur Synthetic Cannabinoids Confirm (()) Urine Marijuana (THC) NEG (NEG) Ethyl Alcohol mg/dL < 3.0 mg/dl (0-3) Fasting Glucose 101 mg/dl (70-99) Triglycerides Level 107 mg/dl (0-150) Cholesterol Level 189 mg/dl (0-200) HDL Cholesterol 51 mg/dl LDL Cholesterol, Calculated 117 mg/dl VLDL Cholesterol, Calculated 21 mg/dl Cholesterol/HDL Ratio 3.7 Problem Qualifiers (1) Schizoaffective disorder: Schizoaffective disorder type: bipolar Qualified Codes: F25.0 - Schizoaffective disorder, bipolar type
[2016-11-06] MEDS ORDERED: IBUPROFEN 800 MG TAB PO PRN (11:00)
[2016-11-07 06:43] VITALS: BP_SYST 145; BP_SYST 147; BP_DIAS 77; BP_DIAS 82; PULSE 54; PULSE 86; TEMP 36.3
--- NOTE | 2016-11-07 08:33 | Psychiatric Progress Notes ---
Progress Note Date of Service Nov 07, 2016. Interval History Diogo Hernández is a 25-year-old single male who has at times reported being homeless and at other times says he lives in an apartment through [facility] in [place] with roommate, has a history of schizoaffective disorder bipolar type, noncompliance with treatment, and substance abuse, and presented to the ER with police for psychosis on 10/30/2016. He was admitted on a 201 voluntary commitment, but had to be placed on an involuntary 302 commitment on 11/02/16 after he started refusing medications, decompensated, and demanded to leave. He is on a 303 as of 11/04/16. Chief Complaint "Good". Subjective Patient was seen & assessed interval progress reviewed with nursing. Staff report he remains delusional, stating that the screw in his foot from his orthopedic procedure was causing his mental health symptoms, with no insight into his mental illness. He has refused his oral Invega for the last 4 days, but did take it this morning, and got his second Invega loading dose yesterday, although it required security presence and non-violent hold. He continues to argue frequently with staff and make accusations. Today, he states that he is doing well, is going to groups, and is spending his time "working on a lot of things, reading the Bible." He says he is "making requests as to why I'm here, you gave a bunch of words in my hearing, I didn't get any explanation." Again explained rationale for the involuntary commitment, as well as his current treatment plan, including getting him on a long-acting injectable antipsychotic , a family meeting with his father, arranging aftercare, coordinating with [facility] and his roommate to ensure he can safely return there, and placing him on an involuntary commitment at discharge due to his history of poor compliance with outpatient treatment. He expressed understanding, but continues to state he doesn't need to be here, and that all of his problems were caused by his surgery and the screw in his foot. He says that now that the screw has been removed, he will not need mental health treatment. He denies hallucinations, paranoia, and thoughts of harming himself or others today. He does think that the medication is helping with depression, stating that he was "depressed, anxious, and hallucinating with thoughts of " after his surgery, which she attributes to "being in so much pain, and they ran out of pain meds." He says he "just wanted God to take me." He says his pain has now improved, and he feels safe here. Sleep Information Total Hours of Sleep: 7.50 Meal Information Percent of Breakfast Consumed: 100 Percent of Lunch Consumed: 50 Percent of Dinner Consumed: 100 Mental Status Exam During interview pt is: alert and oriented, cooperative Appearance: appropriately dressed (wearing a hooded sweatshirt with a bowie up) Eye contact is: fair Motor behavior is: steady gait & station, no abnormal motor movements Speech: normal in rate, rhythm & volume Affect: irritable, constricted (incongruent with stated mood) Mood is: other ("good") Thought process: tangential, looseness of associations (often replies with unrelated information, or jumps from topic to topic), concrete, other ( incorrect word usage) Thought content: preoccupation, paranoid, delusions (of persecution, that the screw in his foot was causing his mental illness and headaches, that his roommate in his apartment may want to kill him), persecution Suicidal thought are: denied Homicidal thoughts are: denied Hallucinations: denies auditory, denies visual Cognition: other (all spheres impaired by psychosis) Intelligence estimated to be: average Insight: severely impaired Judgement: severely impaired Summary of Past History The patient had been improving slightly since admission, but has now decompensated, has been more agitated, disorganized, and paranoid. He became fixated on wanting his cast to be removed in a psychotic fashion, as he thought it was interfering with his spirituality and causing hallucinations. He continued to escalate, has psychomotor agitation, is paranoid, delusional, and becoming increasingly uncooperative with treatment. He is now refusing to continue the Invega Sustenna loading, stating he does not need psychotropic medications and is demanding to leave the hospital. He has no outpatient providers, is psychotic and agitated with labile mood, and is unable to rationally manipulate information. He has a history of violence, and has been threatening at times on the unit. He was started on Invega Sustenna on 2016, and is due for the second loading dose today, but is now refusing it, and is refusing oral medication. He was placed on a 302 involuntary commitment on 11/03/2016, and we will schedule a 303 hearing and pursue medications over objection. We have recommended a 304 involuntary outpatient commitment, due to his long history of noncompliance as well. Medication Trials (1) Past Psych Meds Include but not limited to (from records, patient poor historian): lithium Depakote Haldol Trileptal Ativan Ambien Abilify Risperdal Zyprexa Risperdal Consta Last Edited By: Nadine Kapoor on Oct 31, 2016 10:56 Impression The patient received the second of his Sustenna shots over objection on 2016. He has been able to tolerate some discussion regarding treatment, and ultimately said that he would cooperate with meds and is aware that we will pursue a 304 to OP. He continues to make delusional associations between the screw that was in his ankle and his physical and mental health symptoms, and has no insight. We will continue current meds plans, explore a [facility] counselor. There will be a 304 hearing next week, to convert to an involuntary outpatient commitment at discharge from the hospital. He has a family meeting with his father on Friday, has been assigned a blended rehabilitation caseworker [facility], but still needs aftercare and coordination with his roommate and [facility] prior to discharge. Plan (1) Schizoaffective disorder - Get collateral information from patient's father, and obtain records of any treatment he has received since his last hospitalization here in 2014. 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 - The patient is willing to take risperidone, which he indicates he has been on in the past and was helpful. I will start 1 mg twice a day and 1mg q 4 hrs prn psychosis, check fasting labs, and we will titrate as tolerated to an effective dose. He may benefit from a long-acting injectable. - Medically necessary private room for psychosis. 10/31 - Diagnosis clarified and collateral obtained from father (see above). - Change risperidone to paliperidone, with a plan to start a long-acting injectable in the next several days, as soon as the patient is willing to accept it. He indicated a willingness to get the shot, but then stated that he wanted to wait until his records were reviewed and he took the oral medication first. - Discontinue when necessary risperidone and start Haldol 5 mg when necessary. His father reports he has been on this medication at multiple points in the past. - Fasting lipid profile performed today was normal, and fasting glucose was slightly elevated at 101. - File for a 304 inpatient commitment with a hearing to be held and 5 business days, this will be converted to an involuntary outpatient commitment at the time of discharge. Hopefully this will assist with improving compliance with medications and appointments as an outpatient, as he has chronic poor compliance , leading to frequent inpatient admissions and likely playing a role in his numerous arrests and incarcerations as well. - He will need a family meeting with his parents once he is less psychotic and able to participate. May also want to contact roommate prior to discharge to ensure there are no weapons and that the sword is secured (preferentially removed from the apartment). - Social work to contact the [facility] service unit to determine if he has case management services, and if not, to place a referral. He will also need outpatient psychiatric care, therapy, and other support services such as psych rehabilitation. 11/01 - Start Invega Sustenna 234 mg IM today and 156 mg IM on 11/04 - Continue Invega 3 mg HS 11/02 - Submitted 72 hour notice. Will attempt to encourage him to rescind and engage in ongoing treatment for severe psychosis, but may need to 302 if unwilling. - Continue Haldol and increase to 10 mg and Ativan (increased to 2 mg) both by mouth and IM prn for psychosis and agitation, as his behavior is escalating on the unit. - Social work attempted to arrange case management but was told he would have to schedule an intake first. Will contact the [facility] Friday to review that he will be on an outpatient involuntary commitment and will require [facility] services LOC. 11/03 - Refusing to rescind 72 hour notice, increasingly agitated and psychotic, demanding to leave, and stating he will refuse all medications. Placed on a 302 involuntary commitment. May need to consider medications over objection, which are indicated due to history of good response to antipsychotic medication , current severe psychotic symptoms impairing his ability to function or make informed decisions about treatment, and significant risks (suicide, violence towards others, worsening condition and inability to function) associated with ongoing symptoms and refusal of appropriate treatment. 11/04 - Patient now refusing both oral Invega and his second loading dose of Invega Sustenna. We again reviewed the indication for this medication today, as well as the rest of his treatment plan, which he disagrees with this he does not believe he has a mental illness any longer, feeling that he was cured when the screw was removed from his foot. He has no outpatient providers, no supports in the community, lacks insight, and continues to display psychotic symptoms and an inability to provide for his own basic needs including health, medications, safety, and housing (as he remains paranoid about his roommate who he thinks is in the [employer] forces and may wish him harm). File for a 303 involuntary commitment, and recommend medications over objection, as he has responded to antipsychotics in the past, and without them is unable to rationally manipulate information, ask on his paranoia and delusions, and has had numerous arrests and incarcerations. He will be seen by Dr. Gomez tomorrow, who can give a second opinion on medications over objection. If granted, he can receive his second Sustenna shot and the oral Invega can be discontinued. 11/05 -Patient remains paranoid at this time. He has responded to antipsychotics in the past. Without antipsychotic medication he is unable to make rational decisions and has been unable to maintain his mental health stability and care for himself outside of hospital setting. His paranoia includes an expressed belief that he thinks staff may be attempting to inject him with HIV virus which further interferes with his ability to comply with treatment and stabilize his psychosis. It is my medical opinion that medication over objection with Invega Sustenna should be provided as this is the least restrictive treatment option at this time. 11/06 - Sustenna 156 mg. IM today over objection based on the recommendations of Dr. Kapoor and Dr. Gomez - Will continue Invega 3 mg. HS for now - Remains on a 303, and will file for 304 this week. 11/07 - File for a 304 involuntary commitment. Arrange aftercare with a psychiatrist and therapist. He met with his blended rehabilitation caseworker, Darlyn Plascencia yesterday. We will have to clarify how he will get his long-acting injectable as an outpatient. He is due for the maintenance dose of 117 mg daily in 4 weeks. - Family meeting with father scheduled for 11/11/2016. - Which also involves [facility] staff and touch base with his roommate prior to discharge regarding safety concerns. He indicates that his roommate has a sword, and would recommend this be secured prior to discharge. - Heena Deluca prior auth approved, and prescription for 117mg IM due called into [facility]. They need to know where he will be receiving the shot and the name of the outpatient psychiatrist who will be prescribing after discharge to ensure continuity or care. (2) Methamphetamine abuse As psychosis improves, will educate about the risks of ongoing substance abuse and recommendations for abstinence. (3) Cannabis abuse As psychosis improves, will educate about the risks of ongoing substance abuse and recommendations for abstinence. (4) Hypertension BP initially high in ER and h/o HTN, but has now come down, so will continue to monitor for now. Return to PCP for OP f/u. 11/03 - continues to have episodic bradycardia and hypertension, likely exacerbated by periods of agitation. Will continue to monitor. (5) Obesity Encourage healthy diet and exercise. Refer back to PCP for ongoing management. (6) S/P hardware removal 2 weeks s/p hardware removal R ankle. Appreciate ortho recs - cast placed, walking with walker, elevate as needed for swelling, moved toes frequently, keep cast dry when bathing. Follow-up 11/07/2016 at [facility] orthopedics. 11/02 - Ortho contacted at patient's requests re: repeated demands to have cast removed. Appreciate recs/care. 11/04 - Patient again reminded of the orthopedic's surgeon's recommendations to limit weight bearing on his foot, elevate the foot at times use ice and anti- inflammatories for pain. He continues to walk laps around the unit despite reporting pain. Discharge / Aftercare Planning Primary Care Physician: Name: Dr Mullins Psychiatrist: Name: You will be assignded a Psyhiatrist after your intake appointment w/ Suzi Therapist: Name: [facility] Intake Suzi Bowman Date of Appointment: Nov 19, 2016 Time of Appointment: 10:00am Visit Code E&M Code: 08711 Inventory Assets Strengths: Supportive father, willing for treatment Risk Factors Assessment Male: Yes : Yes /single/: Yes Higher / Fall in social status: No Access to guns: No (but reports there is a sword in his apartment) Health problems: Yes Mental Health Diagnoses: Yes Substance use disorders: Yes Previous attempt: Yes Family history of suicide: No Previous psychiatric stay: Yes Hopelessness: No Smoker: Yes Protective Factors Assessment Denominational beliefs: Yes : No Responsible for young children: No Employed: No Stable relationships: No Supportive family: Yes Good rapport with provider: No Data Vital Signs Last 24 Hrs: Date Time Temp Pulse Resp B/P (MAP) Pulse Ox O2 Delivery O2 Flow Rate FiO2 11/07/16 06:43 36.3 54 16 145/77 86 147/82 Meds Administered Last 24 Hrs: Meds Administered (Past 24Hrs) Medications (Trade) Dose Ordered Sig/Rehana Route Start Time Stop Time Status Last Admin Dose Admin Paliperidone Palmitate (Invega Sustenna) 156 mg NOW ONCE IM 11/06/16 08:15 11/06/16 08:39 DC 11/06/16 09:40 156 MG Ibuprofen (Motrin Tab) 800 mg TID PRN PO 11/06/16 11:00 12/06/16 10:59 11/06/16 17:18 800 MG Problem Qualifiers (1) Schizoaffective disorder: Schizoaffective disorder type: bipolar Qualified Codes: F25.0 - Schizoaffective disorder, bipolar type
[2016-11-07] MEDS: PALIPERIDONE 3 MG TABCR PO SCH (08:35)
--- NOTE | 2016-11-07 09:16 | Orthopedic Progress Note ---
Orthopedic Progress Note Date of Service Nov 07, 2016. Subjective Post OP Day: 21 Reports: feeling well, Denies: complaints, chest pain, SOB, nausea / vomiting, calf pain Additional Notes: Denies pain in right foot/ankle. States occasionally gets a sharp pain, but resolves quickly. States gets some swelling in his foot. The cast was "emotionally stressful", removed 11/05/16. Not wearing the post op shoe as he states it very uncomfortable. Objective calves soft nontender, N/V intact, capillary refill less than 2 sec., dressing C /D/I, A&O x3, toes mobile mild swelling around incision. No evidence of infection. nontender with palpation. Full ankle and subtalar ROM. Strength 5/5. Date Time Temp Pulse Resp B/P (MAP) Pulse Ox O2 Delivery O2 Flow Rate FiO2 11/07/16 06:43 36.3 54 16 145/77 86 147/82 Assessment & Plan Assessment: 2 weeks s/p Hardware removal right ankle, removal accessory ossicle, repair posterior tibial tendon RLE. Plan: Allowed to WBAT RLE, encouraged wearing post op shoe RLE. He states that it's uncomfortable due to not having a shoe on his left foot. Discussed with nursing they will allow him to wear his left shoe for balance. He states that his foot feels fine without it, offered to get him a CAM boot, but he will try the post op shoe. Elevate as needed for swelling Follow up as scheduled with Dr. Jara with [facility]. Please call [phone] with any questions or concerns. Will discuss findings with Dr. Machado as he is covering for Dr. Jara this week.
[2016-11-08 06:48] VITALS: BP_SYST 130; BP_SYST 139; BP_DIAS 78; BP_DIAS 83; PULSE 102; PULSE 79; TEMP 36.8
[2016-11-08] MEDS: PALIPERIDONE 3 MG TABCR PO SCH (08:36)
--- NOTE | 2016-11-08 09:24 | Psychiatric Progress Notes ---
Progress Note Date of Service Nov 08, 2016. Interval History Diogo Hernández is a 25-year-old single male who has at times reported being homeless and at other times says he lives in an apartment through [facility] in [place] with roommate, has a history of schizoaffective disorder bipolar type, noncompliance with treatment, and substance abuse, and presented to the ER with police for psychosis on 10/30/2016. He was admitted on a 201 voluntary commitment, but had to be placed on an involuntary 302 commitment on 11/02/16 after he started refusing medications, decompensated, and demanded to leave. He is on a 303 as of 11/04/16. Chief Complaint "Good.". Subjective Patient was seen & assessed interval progress reviewed with Treatment Team. The patient is wearing his boot this AM as instructed by ortho. He says that he is doing well, but remains frustrated by previous events. He feels that he was discriminated against during previous legal proceedings because he quoted scripture, but in discussion admits that he has not yet learned to use judgement about when he expresses his spirituality. He had a visit with his father last evening that he thought went well. Diogo says that he is trying to get his father to see things from his perspective based on the things he has been through in life, while trying to be respectful of his father. Diogo says that he is feeling calmer, understands the plan for a 304 hearing next , and says that he has appealed his involuntary commitment with his health care attorney. He denies SI/HI, denies aud/vis hallucinations, and denies overt paranoia. Nursing reports that he has not regularly been wearing his boot despite instructions from ortho. He has otherwise been behaviorally appropriate in the milieu. Review of Systems Constitutional: No fever, No chills, No sweats, No weight loss, No weakness, No fatigue, No problem reported ENT: No hearing loss, No unusual epistaxis, No nasal symptoms, No sore throat, No tinnitus, No dental problems, No trouble swallowing, No problem reported Respiratory: No cough, No sputum, No wheezing, No shortness of breath, No dyspnea on exertion, No dyspnea at rest, No hemoptysis, No problem reported Cardiovascular: No chest pain, No orthopnea, No PND, No edema, No claudication , No palpitations, No problem reported Abdomen: No pain, No nausea, No vomiting, No diarrhea, No constipation, No GI bleeding, No problem reported Musculoskeletal: + problem reported (rt foot pain, wearing his boot today) Neurologic: No memory loss, No paralysis, No weakness, No numbness/tingling, No vertigo, No balance problems, No problem reported Psychiatric: + problem reported (frustrated) Integumentary: No rash, No itch, No new/changing skin lesions, No color change , No bleeding, No problem reported Sleep Information Total Hours of Sleep: 6.00 Meal Information Percent of Breakfast Consumed: 100 Percent of Lunch Consumed: 100 Percent of Dinner Consumed: 100 Mental Status Exam During interview pt is: alert and oriented, cooperative Appearance: appropriately dressed Eye contact is: good Motor behavior is: steady gait & station, no abnormal motor movements Speech: normal in rate, rhythm & volume Affect: constricted (incongruent with stated mood) Mood is: other ("good") Thought process: goal directed Thought content: preoccupation (with perceived offenses), persecution Suicidal thought are: denied Homicidal thoughts are: denied Hallucinations: denies auditory, denies visual Cognition: attention grossly intact, language grossly intact Intelligence estimated to be: average Insight: impaired Judgement: impaired Summary of Past History The patient had been improving slightly since admission, but has now decompensated, has been more agitated, disorganized, and paranoid. He became fixated on wanting his cast to be removed in a psychotic fashion, as he thought it was interfering with his spirituality and causing hallucinations. He continued to escalate, has psychomotor agitation, is paranoid, delusional, and becoming increasingly uncooperative with treatment. He is now refusing to continue the Invega Sustenna loading, stating he does not need psychotropic medications and is demanding to leave the hospital. He has no outpatient providers, is psychotic and agitated with labile mood, and is unable to rationally manipulate information. He has a history of violence, and has been threatening at times on the unit. He was started on Invega Sustenna on 2016, and is due for the second loading dose today, but is now refusing it, and is refusing oral medication. He was placed on a 302 involuntary commitment on 11/03/2016, and we will schedule a 303 hearing and pursue medications over objection. We have recommended a 304 involuntary outpatient commitment, due to his long history of noncompliance as well. Medication Trials (1) Past Psych Meds Include but not limited to (from records, patient poor historian): lithium Depakote Haldol Trileptal Ativan Ambien Abilify Risperdal Zyprexa Risperdal Consta Last Edited By: Nadine Kapoor on Oct 31, 2016 10:56 Impression The patient has been cooperative with treatment and today is denying gross psychosis, but has as recently as yesterday endorsed delusions that his roommate was trying to kill him and that his ankle screw was causing MANLEY's. He has received 2 loading doses of Sustenna. He is scheduled for a 304 hearing next and if behavior remains appropriate, and psychosis improved, could consider direct 304 to OP. Plan (1) Schizoaffective disorder - Get collateral information from patient's father, and obtain records of any treatment he has received since his last hospitalization here in 2014. 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 - The patient is willing to take risperidone, which he indicates he has been on in the past and was helpful. I will start 1 mg twice a day and 1mg q 4 hrs prn psychosis, check fasting labs, and we will titrate as tolerated to an effective dose. He may benefit from a long-acting injectable. - Medically necessary private room for psychosis. 10/31 - Diagnosis clarified and collateral obtained from father (see above). - Change risperidone to paliperidone, with a plan to start a long-acting injectable in the next several days, as soon as the patient is willing to accept it. He indicated a willingness to get the shot, but then stated that he wanted to wait until his records were reviewed and he took the oral medication first. - Discontinue when necessary risperidone and start Haldol 5 mg when necessary. His father reports he has been on this medication at multiple points in the past. - Fasting lipid profile performed today was normal, and fasting glucose was slightly elevated at 101. - File for a 304 inpatient commitment with a hearing to be held and 5 business days, this will be converted to an involuntary outpatient commitment at the time of discharge. Hopefully this will assist with improving compliance with medications and appointments as an outpatient, as he has chronic poor compliance , leading to frequent inpatient admissions and likely playing a role in his numerous arrests and incarcerations as well. - He will need a family meeting with his parents once he is less psychotic and able to participate. May also want to contact roommate prior to discharge to ensure there are no weapons and that the sword is secured (preferentially removed from the apartment). - Social work to contact the [facility] service unit to determine if he has case management services, and if not, to place a referral. He will also need outpatient psychiatric care, therapy, and other support services such as psych rehabilitation. 11/01 - Start Invega Sustenna 234 mg IM today and 156 mg IM on 11/04 - Continue Invega 3 mg HS 11/02 - Submitted 72 hour notice. Will attempt to encourage him to rescind and engage in ongoing treatment for severe psychosis, but may need to 302 if unwilling. - Continue Haldol and increase to 10 mg and Ativan (increased to 2 mg) both by mouth and IM prn for psychosis and agitation, as his behavior is escalating on the unit. - Social work attempted to arrange case management but was told he would have to schedule an intake first. Will contact the [facility] Friday to review that he will be on an outpatient involuntary commitment and will require BC services LOC. 11/03 - Refusing to rescind 72 hour notice, increasingly agitated and psychotic, demanding to leave, and stating he will refuse all medications. Placed on a 302 involuntary commitment. May need to consider medications over objection, which are indicated due to history of good response to antipsychotic medication , current severe psychotic symptoms impairing his ability to function or make informed decisions about treatment, and significant risks (suicide, violence towards others, worsening condition and inability to function) associated with ongoing symptoms and refusal of appropriate treatment. 11/04 - Patient now refusing both oral Invega and his second loading dose of Invega Sustenna. We again reviewed the indication for this medication today, as well as the rest of his treatment plan, which he disagrees with this he does not believe he has a mental illness any longer, feeling that he was cured when the screw was removed from his foot. He has no outpatient providers, no supports in the community, lacks insight, and continues to display psychotic symptoms and an inability to provide for his own basic needs including health, medications, safety, and housing (as he remains paranoid about his roommate who he thinks is in the special forces and may wish him harm). File for a 303 involuntary commitment, and recommend medications over objection, as he has responded to antipsychotics in the past, and without them is unable to rationally manipulate information, ask on his paranoia and delusions, and has had numerous arrests and incarcerations. He will be seen by Dr. Gomez tomorrow, who can give a second opinion on medications over objection. If granted, he can receive his second Sustenna shot and the oral Invega can be discontinued. 11/05 -Patient remains paranoid at this time. He has responded to antipsychotics in the past. Without antipsychotic medication he is unable to make rational decisions and has been unable to maintain his mental health stability and care for himself outside of hospital setting. His paranoia includes an expressed belief that he thinks staff may be attempting to inject him with HIV virus which further interferes with his ability to comply with treatment and stabilize his psychosis. It is my medical opinion that medication over objection with Invega Sustenna should be provided as this is the least restrictive treatment option at this time. 11/06 - Sustenna 156 mg. IM today over objection based on the recommendations of Dr. Kapoor and Dr. Gomez - Will continue Invega 3 mg. HS for now - Remains on a 303, and will file for 304 this week. 11/07 - File for a 304 involuntary commitment. Arrange aftercare with a psychiatrist and therapist. He met with his blended correctional case manager, Darlyn Plascencia yesterday. We will have to clarify how he will get his long-acting injectable as an outpatient. He is due for the maintenance dose of 117 mg daily in 4 weeks. - Family meeting with father scheduled for 11/11/2016. - Which also [facility] staff and touch base with his roommate prior to discharge regarding safety concerns. He indicates that his roommate has a sword, and would recommend this be secured prior to discharge. - Invega Sustenna prior auth approved, and prescription for 117mg IM due called into [facility]. They need to know where he will be receiving the shot and the name of the outpatient psychiatrist who will be prescribing after discharge to ensure continuity or care. 11/08 - Continue current plan - 304 hearing thurs 11/14 (2) Methamphetamine abuse As psychosis improves, will educate about the risks of ongoing substance abuse and recommendations for abstinence. (3) Cannabis abuse As psychosis improves, will educate about the risks of ongoing substance abuse and recommendations for abstinence. (4) Hypertension BP initially high in ER and h/o HTN, but has now come down, so will continue to monitor for now. Return to PCP for OP f/u. 11/03 - continues to have episodic bradycardia and hypertension, likely exacerbated by periods of agitation. Will continue to monitor. (5) Obesity Encourage healthy diet and exercise. Refer back to PCP for ongoing management. (6) S/P hardware removal 2 weeks s/p hardware removal R ankle. Appreciate ortho recs - cast placed, walking with walker, elevate as needed for swelling, moved toes frequently, keep cast dry when bathing. Follow-up 11/07/[address] [facility] orthopedics. 11/02 - Ortho contacted at patient's requests re: repeated demands to have cast removed. Appreciate recs/care. 11/04 - Patient again reminded of the orthopedic's surgeon's recommendations to limit weight bearing on his foot, elevate the foot at times use ice and anti- inflammatories for pain. He continues to walk laps around the unit despite reporting pain. 11/08 - Encourage patient to wear post op boot per ortho Discharge / Aftercare Planning Primary Care Physician: Name: Dr Mullins Psychiatrist: Name: You will be assignded a Psyhiatrist after your intake appointment w/ Suzi Therapist: Name: [facility] Intake Suzi Bowman Date of Appointment: Nov 19, 2016 Time of Appointment: 10:00am Visit Code E&M Code: 69596 Inventory Assets Strengths: Supportive father, willing for treatment Risk Factors Assessment Male: Yes : Yes /single/: Yes Higher / Fall in social status: No Access to guns: No (but reports there is a sword in his apartment) Health problems: Yes Mental Health Diagnoses: Yes Substance use disorders: Yes Previous attempt: Yes Family history of suicide: No Previous psychiatric stay: Yes Hopelessness: No Smoker: Yes Protective Factors Assessment Evangelical beliefs: Yes : No Responsible for young children: No Employed: No Stable relationships: No Supportive family: Yes Good rapport with provider: No Data Vital Signs Last 24 Hrs: Date Time Temp Pulse Resp B/P (MAP) Pulse Ox O2 Delivery O2 Flow Rate FiO2 11/08/16 06:48 36.8 79 16 130/78 102 139/83 Meds Administered Last 24 Hrs: Meds Administered (Past 24Hrs) Medications (Trade) Dose Ordered Sig/Rehana Route Start Time Stop Time Status Last Admin Dose Admin Ibuprofen (Motrin Tab) 800 mg TID PRN PO 11/06/16 11:00 12/06/16 10:59 11/06/16 17:18 800 MG Lab Results Last 24 Hrs: 10/30/16 08:50 Red Blood Count 5.35, Mean Corpuscular Volume 82.6, Mean Corpuscular Hemoglobin 29.5, Mean Corpuscular Hemoglobin Concent 35.7, Mean Platelet Volume 9.6, Neutrophils (%) (Auto) 68.6, Lymphocytes (%) (Auto) 22.2, Monocytes (%) (Auto) 7.8, Eosinophils (%) (Auto) 0.6, Basophils (%) (Auto) 0.5, Neutrophils # (Auto) 4.24, Lymphocytes # (Auto) 1.37, Monocytes # (Auto) 0.48, Eosinophils # (Auto) 0.04, Basophils # (Auto) 0.03 10/30/16 08:50 Test 10/30/16 08:50 10/31/16 08:01 White Blood Count 6.18 K/uL (4.8-10.8) Red Blood Count 5.35 M/uL (4.7-6.1) Hemoglobin 15.8 g/dL (14.0-18.0) Hematocrit 44.2 % (42-52) Mean Corpuscular Volume 82.6 fL (80-100) Mean Corpuscular Hemoglobin 29.5 pg (25-34) Mean Corpuscular Hemoglobin Concent 35.7 g/dl (32-36) Platelet Count 228 K/uL (130-400) Mean Platelet Volume 9.6 fL (7.4-10.4) Neutrophils (%) (Auto) 68.6 % Lymphocytes (%) (Auto) 22.2 % Monocytes (%) (Auto) 7.8 % Eosinophils (%) (Auto) 0.6 % Basophils (%) (Auto) 0.5 % Neutrophils # (Auto) 4.24 K/uL (1.4-6.5) Lymphocytes # (Auto) 1.37 K/uL (1.2-3.4) Monocytes # (Auto) 0.48 K/uL (0.11-0.59) Eosinophils # (Auto) 0.04 K/uL (0-0.5) Basophils # (Auto) 0.03 K/uL (0-0.2) RDW Standard Deviation 37.4 fL (36.4-46.3) RDW Coefficient of Variation 12.5 % (11.5-14.5) Immature Granulocyte % (Auto) 0.3 % Immature Granulocyte # (Auto) 0.02 K/uL (0.00-0.02) Urine Color YELLOW Urine Appearance CLEAR (CLEAR) Urine pH 6.5 (4.5-7.5) Urine Specific [place] 1.027 (1.000-1.030) Urine Protein NEG (NEG) Urine Glucose (UA) NEG (NEG) Urine Ketones NEG (NEG) Urine Occult Blood NEG (NEG) Urine Nitrite NEG (NEG) Urine Bilirubin NEG (NEG) Urine Urobilinogen NEG (NEG) Urine Leukocyte Esterase NEG (NEG) Anion Gap 8.0 mmol/L (3-11) Est Creatinine Clear Calc Drug Dose 139.8 ml/min Estimated GFR () 120.7 Estimated GFR (Non- 104.1 BUN/Creatinine Ratio 13.0 (10-20) Calcium Level 8.9 mg/dl (8.5-10.1) Total Bilirubin 0.8 mg/dl (0.2-1) Direct Bilirubin 0.2 mg/dl (0-0.2) Aspartate Amino Transf (AST/SGOT) 12 U/L (15-37) Alanine Aminotransferase (ALT/SGPT) 23 U/L (12-78) Alkaline Phosphatase 74 U/L (45-117) Total Protein 7.2 gm/dl (6.4-8.2) Albumin 3.9 gm/dl (3.4-5.0) Thyroid Stimulating Hormone (TSH) 1.830 uIu/ml (0.300-4.500) Urine Synthetic Stimulants see note Salicylates Level < 1.7 mg/dl (2.8-20) Urine Opiates Screen NEG (NEG) Urine Methadone, Qualitative NEG (NEG) Acetaminophen Level < 2 ug/ml (10-30) Urine Barbiturates NEG (NEG) Urine Phencyclidine (PCP) Level NEG (NEG) Ur Amphetamine/Methamphetamine NEG (NEG) MDMA (Ecstasy) Screen NEG (NEG) Urine Benzodiazepines Screen NEG (NEG) Urine Cocaine Metabolite NEG (NEG) Cannabinoids Comment see note Urine Synthetic Cannabinoids NEGATIVE (Negative) Ur Synthetic Cannabinoids Confirm (()) Urine Marijuana (THC) NEG (NEG) Ethyl Alcohol mg/dL < 3.0 mg/dl (0-3) Fasting Glucose 101 mg/dl (70-99) Triglycerides Level 107 mg/dl (0-150) Cholesterol Level 189 mg/dl (0-200) HDL Cholesterol 51 mg/dl LDL Cholesterol, Calculated 117 mg/dl VLDL Cholesterol, Calculated 21 mg/dl Cholesterol/HDL Ratio 3.7 Problem Qualifiers (1) Schizoaffective disorder: Schizoaffective disorder type: bipolar Qualified Codes: F25.0 - Schizoaffective disorder, bipolar type
[2016-11-09 06:40] VITALS: BP 149/79; PULSE 109; TEMP 36.4
[2016-11-09] MEDS: PALIPERIDONE 3 MG TABCR PO SCH (07:37)
--- NOTE | 2016-11-09 11:04 | Psychiatric Progress Notes ---
Progress Note Date of Service Nov 09, 2016. Interval History Diogo Hernández is a 25-year-old single male who has at times reported being homeless and at other times says he lives in an apartment through [facility] in [place] with roommate, has a history of schizoaffective disorder bipolar type, noncompliance with treatment, and substance abuse, and presented to the ER with police for psychosis on 10/30/2016. He was admitted on a 201 voluntary commitment, but had to be placed on an involuntary 302 commitment on 11/02/16 after he started refusing medications, decompensated, and demanded to leave. He is on a 303 as of 11/04/16. Chief Complaint "I don't understand why they're holding that stuff against me". Subjective Patient was seen & assessed interval progress reviewed with Treatment Team. Per staff, patient seems to be making progress, has been taking oral medication better, attending groups. Rated mood 10 at of 10 last evening. He reportedly has an intake at [facility] on the . 304 hearing scheduled for this coming . On interview the patient expresses uncertainty about the rationale for his involuntary commitment. He states that he has no violent intentions towards himself or anyone else. He alludes to some recollection that he may have made some concerning comments but seems to contradict himself quickly stating "I know I would never say that." He complains of feeling cooped up and would like to be more active. Review of Systems Respiratory: No cough, No sputum, No wheezing, No shortness of breath, No dyspnea on exertion, No dyspnea at rest, No hemoptysis, No problem reported Cardiovascular: No chest pain, No orthopnea, No PND, No edema, No claudication , No palpitations, No problem reported Sleep Information Total Hours of Sleep: 6.00 Meal Information Percent of Breakfast Consumed: 100 Percent of Lunch Consumed: 95 Percent of Dinner Consumed: 100 Mental Status Exam During interview pt is: alert and oriented, cooperative Appearance: appropriately dressed Eye contact is: good Motor behavior is: steady gait & station, no abnormal motor movements Speech: normal in rate, rhythm & volume (very mildly pressured at times) Affect: irritable Mood is: other (confused) Thought process: goal directed Thought content: preoccupation (with perceived offenses), persecution Suicidal thought are: denied Homicidal thoughts are: denied Hallucinations: denies auditory, denies visual Cognition: attention grossly intact, language grossly intact Intelligence estimated to be: average Insight: impaired Judgement: impaired Summary of Past History The patient had been improving slightly since admission, but has now decompensated, has been more agitated, disorganized, and paranoid. He became fixated on wanting his cast to be removed in a psychotic fashion, as he thought it was interfering with his spirituality and causing hallucinations. He continued to escalate, has psychomotor agitation, is paranoid, delusional, and becoming increasingly uncooperative with treatment. He is now refusing to continue the Invega Sustenna loading, stating he does not need psychotropic medications and is demanding to leave the hospital. He has no outpatient providers, is psychotic and agitated with labile mood, and is unable to rationally manipulate information. He has a history of violence, and has been threatening at times on the unit. He was started on Invega Sustenna on 2016, and is due for the second loading dose today, but is now refusing it, and is refusing oral medication. He was placed on a 302 involuntary commitment on 11/03/2016, and we will schedule a 303 hearing and pursue medications over objection. We have recommended a 304 involuntary outpatient commitment, due to his long history of noncompliance as well. Medication Trials (1) Past Psych Meds Include but not limited to (from records, patient poor historian): lithium Depakote Haldol Trileptal Ativan Ambien Abilify Risperdal Zyprexa Risperdal Consta Last Edited By: Nadine aKpoor on Oct 31, 2016 10:56 Impression The patient has been cooperative with treatment and today is denying gross psychosis, but has as recently as yesterday endorsed delusions that his roommate was trying to kill him and that his ankle screw was causing MANLEY's. He has received 2 loading doses of Sustenna. He is scheduled for a 304 hearing next and if behavior remains appropriate, and psychosis improved, could consider direct 304 to OP. Plan (1) Schizoaffective disorder - Get collateral information from patient's father, and obtain records of any treatment he has received since his last hospitalization here in 2014. 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 - The patient is willing to take risperidone, which he indicates he has been on in the past and was helpful. I will start 1 mg twice a day and 1mg q 4 hrs prn psychosis, check fasting labs, and we will titrate as tolerated to an effective dose. He may benefit from a long-acting injectable. - Medically necessary private room for psychosis. 10/31 - Diagnosis clarified and collateral obtained from father (see above). - Change risperidone to paliperidone, with a plan to start a long-acting injectable in the next several days, as soon as the patient is willing to accept it. He indicated a willingness to get the shot, but then stated that he wanted to wait until his records were reviewed and he took the oral medication first. - Discontinue when necessary risperidone and start Haldol 5 mg when necessary. His father reports he has been on this medication at multiple points in the past. - Fasting lipid profile performed today was normal, and fasting glucose was slightly elevated at 101. - File for a 304 inpatient commitment with a hearing to be held and 5 business days, this will be converted to an involuntary outpatient commitment at the time of discharge. Hopefully this will assist with improving compliance with medications and appointments as an outpatient, as he has chronic poor compliance , leading to frequent inpatient admissions and likely playing a role in his numerous arrests and incarcerations as well. - He will need a family meeting with his parents once he is less psychotic and able to participate. May also want to contact roommate prior to discharge to ensure there are no weapons and that the sword is secured (preferentially removed from the apartment). - Social work to contact the [facility] service unit to determine if he has case management services, and if not, to place a referral. He will also need outpatient psychiatric care, therapy, and other support services such as psych rehabilitation. 11/01 - Start Invega Sustenna 234 mg IM today and 156 mg IM on 11/04 - Continue Invega 3 mg HS 11/02 - Submitted 72 hour notice. Will attempt to encourage him to rescind and engage in ongoing treatment for severe psychosis, but may need to 302 if unwilling. - Continue Haldol and increase to 10 mg and Ativan (increased to 2 mg) both by mouth and IM prn for psychosis and agitation, as his behavior is escalating on the unit. - Social work attempted to arrange case management but was told he would have to schedule an intake first. Will contact the [facility] Friday to review that he will be on an outpatient involuntary commitment and will require [facility] services LOC. 11/03 - Refusing to rescind 72 hour notice, increasingly agitated and psychotic, demanding to leave, and stating he will refuse all medications. Placed on a 302 involuntary commitment. May need to consider medications over objection, which are indicated due to history of good response to antipsychotic medication , current severe psychotic symptoms impairing his ability to function or make informed decisions about treatment, and significant risks (suicide, violence towards others, worsening condition and inability to function) associated with ongoing symptoms and refusal of appropriate treatment. 11/04 - Patient now refusing both oral Invega and his second loading dose of Invega Sustenna. We again reviewed the indication for this medication today, as well as the rest of his treatment plan, which he disagrees with this he does not believe he has a mental illness any longer, feeling that he was cured when the screw was removed from his foot. He has no outpatient providers, no supports in the community, lacks insight, and continues to display psychotic symptoms and an inability to provide for his own basic needs including health, medications, safety, and housing (as he remains paranoid about his roommate who he thinks is in the special forces and may wish him harm). File for a 303 involuntary commitment, and recommend medications over objection, as he has responded to antipsychotics in the past, and without them is unable to rationally manipulate information, ask on his paranoia and delusions, and has had numerous arrests and incarcerations. He will be seen by Dr. Gomez tomorrow, who can give a second opinion on medications over objection. If granted, he can receive his second Sustenna shot and the oral Invega can be discontinued. 11/05 -Patient remains paranoid at this time. He has responded to antipsychotics in the past. Without antipsychotic medication he is unable to make rational decisions and has been unable to maintain his mental health stability and care for himself outside of hospital setting. His paranoia includes an expressed belief that he thinks staff may be attempting to inject him with HIV virus which further interferes with his ability to comply with treatment and stabilize his psychosis. It is my medical opinion that medication over objection with Invega Sustenna should be provided as this is the least restrictive treatment option at this time. 11/06 - Sustenna 156 mg. IM today over objection based on the recommendations of Dr. Kapoor and Dr. Gomez - Will continue Invega 3 mg. HS for now - Remains on a 303, and will file for 304 this week. 11/07 - File for a 304 involuntary commitment. Arrange aftercare with a psychiatrist and therapist. He met with his blended clinical case manager, Darlyn Plascencia yesterday. We will have to clarify how he will get his long-acting injectable as an outpatient. He is due for the maintenance dose of 117 mg daily in 4 weeks. - Family meeting with father scheduled for 11/11/2016. - Which also involves [facility] staff and touch base with his roommate prior to discharge regarding safety concerns. He indicates that his roommate has a sword, and would recommend this be secured prior to discharge. - Invega Sustenna prior auth approved, and prescription for 117mg IM due called into [facility]. They need to know where he will be receiving the shot and the name of the outpatient psychiatrist who will be prescribing after discharge to ensure continuity or care. 11/08 - Continue current plan - 304 hearing th11/14 - More cooperative recently but remains paranoid. Continue plan as above (2) Methamphetamine abuse As psychosis improves, will educate about the risks of ongoing substance abuse and recommendations for abstinence. (3) Cannabis abuse As psychosis improves, will educate about the risks of ongoing substance abuse and recommendations for abstinence. (4) Hypertension BP initially high in ER and h/o HTN, but has now come down, so will continue to monitor for now. Return to PCP for OP f/u. 11/03 - continues to have episodic bradycardia and hypertension, likely exacerbated by periods of agitation. Will continue to monitor. (5) Obesity Encourage healthy diet and exercise. Refer back to PCP for ongoing management. (6) S/P hardware removal 2 weeks s/p hardware removal R ankle. Appreciate ortho recs - cast placed, walking with walker, elevate as needed for swelling, moved toes frequently, keep cast dry when bathing. Follow-up 11/07/2016 at [facility] orthopedics. 11/02 - Ortho contacted at patient's requests re: repeated demands to have cast removed. Appreciate recs/care. 11/04 - Patient again reminded of the orthopedic's surgeon's recommendations to limit weight bearing on his foot, elevate the foot at times use ice and anti- inflammatories for pain. He continues to walk laps around the unit despite reporting pain. 11/08 - Encourage patient to wear post op boot per ortho Discharge / Aftercare Planning Primary Care Physician: Name: Dr Mullins Psychiatrist: Name: You will be assignded a Psyhiatrist after your intake appointment w/ Suzi Therapist: Name: [facility] Intake Suzi Bowman Date of Appointment: Nov 19, 2016 Time of Appointment: 10:00am Visit Code E&M Code: 22372 Inventory Assets Strengths: Supportive father, willing for treatment Risk Factors Assessment Male: Yes : Yes /single/: Yes Higher / Fall in social status: No Access to guns: No (but reports there is a sword in his apartment) Health problems: Yes Mental Health Diagnoses: Yes Substance use disorders: Yes Previous attempt: Yes Family history of suicide: No Previous psychiatric stay: Yes Hopelessness: No Smoker: Yes Protective Factors Assessment Hoahaoism beliefs: Yes : No Responsible for young children: No Employed: No Stable relationships: No Supportive family: Yes Good rapport with provider: No Data Vital Signs Last 24 Hrs: Date Time Temp Pulse Resp B/P (MAP) Pulse Ox O2 Delivery O2 Flow Rate FiO2 11/09/16 06:40 36.4 109 16 149/79 Problem Qualifiers (1) Schizoaffective disorder: Schizoaffective disorder type: bipolar Qualified Codes: F25.0 - Schizoaffective disorder, bipolar type
[2016-11-10 06:50] VITALS: BP_SYST 153; BP_SYST 161; BP_DIAS 72; BP_DIAS 83; PULSE 75; PULSE 80; TEMP 36.4
[2016-11-10] MEDS: PALIPERIDONE 3 MG TABCR PO SCH (08:23)
--- NOTE | 2016-11-10 10:47 | Psychiatric Progress Notes ---
Progress Note Date of Service Nov 10, 2016. Interval History Diogo Hernández is a 25-year-old single male who has at times reported being homeless and at other times says he lives in an apartment through [facility] in [place] with roommate, has a history of schizoaffective disorder bipolar type, noncompliance with treatment, and substance abuse, and presented to the ER with police for psychosis on 10/30/2016. He was admitted on a 201 voluntary commitment, but had to be placed on an involuntary 302 commitment on 11/02/16 after he started refusing medications, decompensated, and demanded to leave. He is on a 303 as of 11/04/16. Chief Complaint "I still miss being outside". Subjective Patient was seen & assessed interval progress reviewed with Treatment Team. Per staff, the patient again demonstrated improved behavior in the last 24 hours. Has been attending groups. He rated his mood as 10 out of 10 last evening. No acute events overnight. Wearing a foot brace regularly. Remains more compliant with oral medication. On interview he is more logical and consistently goal-directed today. He complains of feeling cooped up here in the hospital but otherwise denies acute concerns. He does not make any paranoid or persecutory commentary today. Review of Systems Constitutional: No fever, No chills, No sweats, No weight loss, No weakness, No fatigue, No problem reported Musculoskeletal: + problem reported (mild foot pain) Sleep Information Total Hours of Sleep: 7.00 Meal Information Percent of Breakfast Consumed: 100 Percent of Lunch Consumed: 100 Percent of Dinner Consumed: 100 Mental Status Exam During interview pt is: alert and oriented, cooperative Appearance: appropriately dressed Eye contact is: good Motor behavior is: steady gait & station, no abnormal motor movements Speech: normal in rate, rhythm & volume Affect: other (more calm today) Mood is: other ("ok") Thought process: goal directed Thought content: preoccupation (much less preoccupied today) Suicidal thought are: denied Homicidal thoughts are: denied Hallucinations: denies auditory, denies visual Cognition: attention grossly intact, language grossly intact Intelligence estimated to be: average Insight: impaired Judgement: impaired Summary of Past History The patient had been improving slightly since admission, but has now decompensated, has been more agitated, disorganized, and paranoid. He became fixated on wanting his cast to be removed in a psychotic fashion, as he thought it was interfering with his spirituality and causing hallucinations. He continued to escalate, has psychomotor agitation, is paranoid, delusional, and becoming increasingly uncooperative with treatment. He is now refusing to continue the Invega Sustenna loading, stating he does not need psychotropic medications and is demanding to leave the hospital. He has no outpatient providers, is psychotic and agitated with labile mood, and is unable to rationally manipulate information. He has a history of violence, and has been threatening at times on the unit. He was started on Invega Sustenna on 2016, and is due for the second loading dose today, but is now refusing it, and is refusing oral medication. He was placed on a 302 involuntary commitment on 11/03/2016, and we will schedule a 303 hearing and pursue medications over objection. We have recommended a 304 involuntary outpatient commitment, due to his long history of noncompliance as well. Medication Trials (1) Past Psych Meds Include but not limited to (from records, patient poor historian): lithium Depakote Haldol Trileptal Ativan Ambien Abilify Risperdal Zyprexa Risperdal Consta Last Edited By: Nadine Kapoor on Oct 31, 2016 10:56 Impression The patient has been cooperative with treatment and today is denying gross psychosis, but has as recently as yesterday endorsed delusions that his roommate was trying to kill him and that his ankle screw was causing MANLEY's. He has received 2 loading doses of Sustenna. He is scheduled for a 304 hearing next and if behavior remains appropriate, and psychosis improved, could consider direct 304 to OP. Plan (1) Schizoaffective disorder - Get collateral information from patient's father, and obtain records of any treatment he has received since his last hospitalization here in 2014. 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 - The patient is willing to take risperidone, which he indicates he has been on in the past and was helpful. I will start 1 mg twice a day and 1mg q 4 hrs prn psychosis, check fasting labs, and we will titrate as tolerated to an effective dose. He may benefit from a long-acting injectable. - Medically necessary private room for psychosis. 10/31 - Diagnosis clarified and collateral obtained from father (see above). - Change risperidone to paliperidone, with a plan to start a long-acting injectable in the next several days, as soon as the patient is willing to accept it. He indicated a willingness to get the shot, but then stated that he wanted to wait until his records were reviewed and he took the oral medication first. - Discontinue when necessary risperidone and start Haldol 5 mg when necessary. His father reports he has been on this medication at multiple points in the past. - Fasting lipid profile performed today was normal, and fasting glucose was slightly elevated at 101. - File for a 304 inpatient commitment with a hearing to be held and 5 business days, this will be converted to an involuntary outpatient commitment at the time of discharge. Hopefully this will assist with improving compliance with medications and appointments as an outpatient, as he has chronic poor compliance , leading to frequent inpatient admissions and likely playing a role in his numerous arrests and incarcerations as well. - He will need a family meeting with his parents once he is less psychotic and able to participate. May also want to contact roommate prior to discharge to ensure there are no weapons and that the sword is secured (preferentially removed from the apartment). - Social work to contact the [facility] service unit to determine if he has case management services, and if not, to place a referral. He will also need outpatient psychiatric care, therapy, and other support services such as psych rehabilitation. 11/01 - Start Invega Sustenna 234 mg IM today and 156 mg IM on 11/04 - Continue Invega 3 mg HS 11/02 - Submitted 72 hour notice. Will attempt to encourage him to rescind and engage in ongoing treatment for severe psychosis, but may need to 302 if unwilling. - Continue Haldol and increase to 10 mg and Ativan (increased to 2 mg) both by mouth and IM prn for psychosis and agitation, as his behavior is escalating on the unit. - Social work attempted to arrange case management but was told he would have to schedule an intake first. Will contact the [facility] Friday to review that he will be on an outpatient involuntary commitment and will require [facility] services LOC. 11/03 - Refusing to rescind 72 hour notice, increasingly agitated and psychotic, demanding to leave, and stating he will refuse all medications. Placed on a 302 involuntary commitment. May need to consider medications over objection, which are indicated due to history of good response to antipsychotic medication , current severe psychotic symptoms impairing his ability to function or make informed decisions about treatment, and significant risks (suicide, violence towards others, worsening condition and inability to function) associated with ongoing symptoms and refusal of appropriate treatment. 11/04 - Patient now refusing both oral Invega and his second loading dose of Invega Sustenna. We again reviewed the indication for this medication today, as well as the rest of his treatment plan, which he disagrees with this he does not believe he has a mental illness any longer, feeling that he was cured when the screw was removed from his foot. He has no outpatient providers, no supports in the community, lacks insight, and continues to display psychotic symptoms and an inability to provide for his own basic needs including health, medications, safety, and housing (as he remains paranoid about his roommate who he thinks is in the special forces and may wish him harm). File for a 303 involuntary commitment, and recommend medications over objection, as he has responded to antipsychotics in the past, and without them is unable to rationally manipulate information, ask on his paranoia and delusions, and has had numerous arrests and incarcerations. He will be seen by Dr. Gomez tomorrow, who can give a second opinion on medications over objection. If granted, he can receive his second Sustenna shot and the oral Invega can be discontinued. 11/05 -Patient remains paranoid at this time. He has responded to antipsychotics in the past. Without antipsychotic medication he is unable to make rational decisions and has been unable to maintain his mental health stability and care for himself outside of hospital setting. His paranoia includes an expressed belief that he thinks staff may be attempting to inject him with HIV virus which further interferes with his ability to comply with treatment and stabilize his psychosis. It is my medical opinion that medication over objection with Invega Sustenna should be provided as this is the least restrictive treatment option at this time. 11/06 - Sustenna 156 mg. IM today over objection based on the recommendations of Dr. Kapoor and Dr. Gomez - Will continue Invega 3 mg. HS for now - Remains on a 303, and will file for 304 this week. 11/07 - File for a 304 involuntary commitment. Arrange aftercare with a psychiatrist and therapist. He met with his blended leather case finisher, Darlyn Plascencia yesterday. We will have to clarify how he will get his long-acting injectable as an outpatient. He is due for the maintenance dose of 117 mg daily in 4 weeks. - Family meeting with father scheduled for 11/11/2016. - Which also involves [facility] staff and touch base with his roommate prior to discharge regarding safety concerns. He indicates that his roommate has a sword, and would recommend this be secured prior to discharge. - Invjovan Deluca prior auth approved, and prescription for 117mg IM due called into [facility]. They need to know where he will be receiving the shot and the name of the outpatient psychiatrist who will be prescribing after discharge to ensure continuity or care. 11/08 - Continue current plan - 304 hearing 11/14 - More cooperative recently but remains paranoid. Continue plan as above 11/10 - less paranoid and irritable in last 24H. awaiting 304 hearing (2) Methamphetamine abuse As psychosis improves, will educate about the risks of ongoing substance abuse and recommendations for abstinence. (3) Cannabis abuse As psychosis improves, will educate about the risks of ongoing substance abuse and recommendations for abstinence. (4) Hypertension BP initially high in ER and h/o HTN, but has now come down, so will continue to monitor for now. Return to PCP for OP f/u. 11/03 - continues to have episodic bradycardia and hypertension, likely exacerbated by periods of agitation. Will continue to monitor. (5) Obesity Encourage healthy diet and exercise. Refer back to PCP for ongoing management. (6) S/P hardware removal 2 weeks s/p hardware removal R ankle. Appreciate ortho recs - cast placed, walking with walker, elevate as needed for swelling, moved toes frequently, keep cast dry when bathing. Follow-up 11/07/2016 at [facility] orthopedics. 11/02 - Ortho contacted at patient's requests re: repeated demands to have cast removed. Appreciate recs/care. 11/04 - Patient again reminded of the orthopedic's surgeon's recommendations to limit weight bearing on his foot, elevate the foot at times use ice and anti- inflammatories for pain. He continues to walk laps around the unit despite reporting pain. 11/08 - Encourage patient to wear post op boot per ortho Discharge / Aftercare Planning Primary Care Physician: Name: Dr Mullins Psychiatrist: Name: You will be assignded a Psyhiatrist after your intake appointment w/ [facility] Therapist: Name: andressa Date of Appointment: Nov 19, 2016 Time of Appointment: 10:00am Crtts: Name: none Visit Code E&M Code: 30067 Inventory Assets Strengths: Supportive father, willing for treatment Risk Factors Assessment Male: Yes : Yes /single/: Yes Higher / Fall in social status: No Access to guns: No (but reports there is a sword in his apartment) Health problems: Yes Mental Health Diagnoses: Yes Substance use disorders: Yes Previous attempt: Yes Family history of suicide: No Previous psychiatric stay: Yes Hopelessness: No Smoker: Yes Protective Factors Assessment Yarsanism beliefs: Yes : No Responsible for young children: No Employed: No Stable relationships: No Supportive family: Yes Good rapport with provider: No Data Vital Signs Last 24 Hrs: Date Time Temp Pulse Resp B/P (MAP) Pulse Ox O2 Delivery O2 Flow Rate FiO2 11/10/16 06:50 36.4 80 18 161/72 75 153/83 Problem Qualifiers (1) Schizoaffective disorder: Schizoaffective disorder type: bipolar Qualified Codes: F25.0 - Schizoaffective disorder, bipolar type
[2016-11-11 06:59] VITALS: BP_SYST 139; BP_SYST 149; BP_DIAS 82; BP_DIAS 99; PULSE 44; PULSE 78; TEMP 37
[2016-11-11] MEDS: PALIPERIDONE 3 MG TABCR PO SCH (09:00)
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
[2016-11-12 06:58] VITALS: BP_SYST 134; BP_SYST 136; BP_DIAS 76; BP_DIAS 87; PULSE 50; PULSE 59; TEMP 36.6
[2016-11-12] MEDS: PALIPERIDONE 3 MG TABCR PO SCH (08:54)
--- NOTE | 2016-11-12 10:33 | Psychiatric Progress Notes ---
Progress Note Date of Service Nov 12, 2016. Interval History Diogo Hernández is a 25-year-old single male who has at times reported being homeless and at other times says he lives in an apartment through [facility] in [place] with roommate, has a history of schizoaffective disorder bipolar type, noncompliance with treatment, and substance abuse, and presented to the ER with police for psychosis on 10/30/2016. He was admitted on a 201 voluntary commitment, but had to be placed on an involuntary 302 commitment on 11/02/16 after he started refusing medications, decompensated, and demanded to leave. He is on a 303 as of 11/04/16. Chief Complaint "I'm feeling better. More calm. More together." Subjective tPatient was seen & assessed interval progress reviewed with Treatment Team. In addition, the patient was evaluated by the undersigned individually this morning in order to assess his response to treatment, evaluate his current mental status, adjust his treatment regimen as indicated, and responded to questions and concerns which may arise. The patient tells me that he has been feeling better, and had a good night sleep last night. Nursing reports indicate that he slept proximally 7-1/2 hours. Yesterday, he had told me that he does not feel that he needs medication and does not intend to take it after discharge. Today, however, he denies that he never said that. He said that he plans to take medications, but later spent much of the session arguing against the efficacy of psychiatric medications. For example, he tells me that "psychiatric medications make me more mixed up, not less. It makes me worse. I need to be gamma tested. You people are just guessing." Later, he revises that statement and says that, in fact, he feels that in [place] has been helpful and it has allowed him to feel "a lot better." More specifically, he says that he believes that it has helped him to think more clearly, and has relieved his overwhelming sense of frustration and emotional lability. Patient also tells me that he realizes that he is going to need to take outpatient medications because of the planned outpatient commitment. He adds, "I know better than to stop medication this time because I'll just have to come back to the hospital, and I want a chance to stay well and not be in the hospital." He continues to have limited insight into his illness, and as he had just today, he tells me that he thinks that his biggest problem was that he was in "chronic pain." He struggles to explain why the chronic pain has translated into multiple psychiatric hospitalizations, dyscontrol behavior that has led to imprisonments , and, by his own acknowledgment, confused and disorganized thinking. The patient also remains somewhat hyperreligious. He says, for example that he is "affiliated with all of the churches in [place]." He also exhibits loosening of associations will not provide external structure. For example the patient said, "I need to put my body in the right perspective and make my mind one with my body so that it will realign. Review of Systems Constitutional: No fever, No chills, No sweats, No weight loss, No weakness, No fatigue, No problem reported ENT: No hearing loss, No unusual epistaxis, No nasal symptoms, No sore throat, No tinnitus, No dental problems, No trouble swallowing, No problem reported Respiratory: No cough, No sputum, No wheezing, No shortness of breath, No dyspnea on exertion, No dyspnea at rest, No hemoptysis, No problem reported Cardiovascular: No chest pain, No orthopnea, No PND, No edema, No claudication , No palpitations, No problem reported Abdomen: No pain, No nausea, No vomiting, No diarrhea, No constipation, No GI bleeding, No problem reported Musculoskeletal: + problem reported (the patient has ongoing pain in his right foot, but says that it has been feeling better recently.) Neurologic: No memory loss, No paralysis, No weakness, No numbness/tingling, No vertigo, No balance problems, No problem reported Psychiatric: No depression symptoms (the patient says that his mood is "10 out of 10," and when I commented that his mood did not appear to be particularly bright, he said that he feels "very happy inside"and that I shouldn't mistake his being calm with his not being very happy.), No anhedonism, No anxiety, No insomnia Medication Side Effects: Patient reports that his medications are "interfering with [my] spiritual life. " He also says that the medications "interfere with [my] top top athletic abilities," and that they cause sedation. Sleep Information Total Hours of Sleep: 7.50 Meal Information Percent of Breakfast Consumed: 100 Percent of Lunch Consumed: 100 Percent of Dinner Consumed: 100 Mental Status Exam During interview pt is: alert and oriented, cooperative Appearance: appropriately dressed, appropriately groomed Eye contact is: good Motor behavior is: steady gait & station, no abnormal motor movements, other ( the patient is wearing an orthopedic boot and walks with a slowed gait) Speech: normal in rate, rhythm & volume Affect: other (The patient's affect is somewhat constricted, becomes more animated when reminded of his assertion yesterday that he would not take medications after discharge.) Mood is: other (The patient says that his mood is "10 out of 10," and that he feels "calm and happy.") Thought process: tangential, looseness of associations (The patient's associations loosen if not provided external structure, but he is able to respond to redirection and external structure. The patient, himself, says that he feels that he needs "structure and boundaries" in his life.) Thought content: preoccupation (the patient pills repeatedly on the fact that he believes that chronic pain has had on his mental status, and his insistence that he has been given medications that are causing him harm.), other (The patient is less grandiose today. He describes a number of interests but does not seemed overvalue his strengths and talents. He also remains somewhat hyperreligious. However, no systematized delusional material is identified and the patient's thought content.) Suicidal thought are: denied Homicidal thoughts are: denied Hallucinations: denies auditory, denies visual Cognition: attention grossly intact, language grossly intact Intelligence estimated to be: average Insight: impaired (the patient continues to have difficulty fully accepting the fact that he has a mental illness and requires psychiatric medications. He speaks of needing to have "gamma testing" and attributes his emotional difficulties to "chronic pain from my foot." At the same time, he does acknowledge that the current medications are helping him to feel better, and he says that he will agree to take medications if the doctors tell him that it's necessary.) Judgement: fair Summary of Past History The patient continues to improve. His associations have tightened somewhat since yesterday, although they do loosened if not provided external structure after several minutes. He is sleeping 7-2 hours a night, his appetite has been good, he remained somewhat hyper mosque, but does not demonstrate any delusional thinking. He also denies that he has any perceptual disturbances, and we see no evidence that he is responding to internal stimuli. The patient is now saying that he except that he is going to need to take psychiatric medications, although he is not sure that he has a mental illness. He says that he understands that if he doesn't take psychiatric medications he can be rehospitalized, and that is inconsistent with his personal goals. He is neither suicidal nor homicidal, and is future oriented. Medication Trials (1) Past Psych Meds Include but not limited to (from records, patient poor historian): lithium Depakote Haldol Trileptal Ativan Ambien Abilify Risperdal Zyprexa Risperdal Consta Last Edited By: Nadine Kapoor on Oct 31, 2016 10:56 Impression The patient has been cooperative with treatment and is not currently showing psychotic features. He is scheduled for a 304 hearing next and if behavior remains appropriate, and psychosis improved, could consider direct 304 to OP. Plan (1) Schizoaffective disorder - Get collateral information from patient's father, and obtain records of any treatment he has received since his last hospitalization here in 2014. 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 - The patient is willing to take risperidone, which he indicates he has been on in the past and was helpful. I will start 1 mg twice a day and 1mg q 4 hrs prn psychosis, check fasting labs, and we will titrate as tolerated to an effective dose. He may benefit from a long-acting injectable. - Medically necessary private room for psychosis. 10/31 - Diagnosis clarified and collateral obtained from father (see above). - Change risperidone to paliperidone, with a plan to start a long-acting injectable in the next several days, as soon as the patient is willing to accept it. He indicated a willingness to get the shot, but then stated that he wanted to wait until his records were reviewed and he took the oral medication first. - Discontinue when necessary risperidone and start Haldol 5 mg when necessary. His father reports he has been on this medication at multiple points in the past. - Fasting lipid profile performed today was normal, and fasting glucose was slightly elevated at 101. - File for a 304 inpatient commitment with a hearing to be held and 5 business days, this will be converted to an involuntary outpatient commitment at the time of discharge. Hopefully this will assist with improving compliance with medications and appointments as an outpatient, as he has chronic poor compliance , leading to frequent inpatient admissions and likely playing a role in his numerous arrests and incarcerations as well. - He will need a family meeting with his parents once he is less psychotic and able to participate. May also want to contact roommate prior to discharge to ensure there are no weapons and that the sword is secured (preferentially removed from the apartment). - Social work to contact the [facility] service unit to determine if he has case management services, and if not, to place a referral. He will also need outpatient psychiatric care, therapy, and other support services such as psych rehabilitation. 11/01 - Start Invega Sustenna 234 mg IM today and 156 mg IM on 11/04 - Continue Invega 3 mg HS 11/02 - Submitted 72 hour notice. Will attempt to encourage him to rescind and engage in ongoing treatment for severe psychosis, but may need to 302 if unwilling. - Continue Haldol and increase to 10 mg and Ativan (increased to 2 mg) both by mouth and IM prn for psychosis and agitation, as his behavior is escalating on the unit. - Social work attempted to arrange case management but was told he would have to schedule an intake first. Will contact the [facility] Friday to review that he will be on an outpatient involuntary commitment and will require [facility] services LOC. 11/03 - Refusing to rescind 72 hour notice, increasingly agitated and psychotic, demanding to leave, and stating he will refuse all medications. Placed on a 302 involuntary commitment. May need to consider medications over objection, which are indicated due to history of good response to antipsychotic medication , current severe psychotic symptoms impairing his ability to function or make informed decisions about treatment, and significant risks (suicide, violence towards others, worsening condition and inability to function) associated with ongoing symptoms and refusal of appropriate treatment. 11/04 - Patient now refusing both oral Invega and his second loading dose of Invega Sustenna. We again reviewed the indication for this medication today, as well as the rest of his treatment plan, which he disagrees with this he does not believe he has a mental illness any longer, feeling that he was cured when the screw was removed from his foot. He has no outpatient providers, no supports in the community, lacks insight, and continues to display psychotic symptoms and an inability to provide for his own basic needs including health, medications, safety, and housing (as he remains paranoid about his roommate who he thinks is in the special forces and may wish him harm). File for a 303 involuntary commitment, and recommend medications over objection, as he has responded to antipsychotics in the past, and without them is unable to rationally manipulate information, ask on his paranoia and delusions, and has had numerous arrests and incarcerations. He will be seen by Dr. Gomez tomorrow, who can give a second opinion on medications over objection. If granted, he can receive his second Sustenna shot and the oral Invega can be discontinued. 11/05 -Patient remains paranoid at this time. He has responded to antipsychotics in the past. Without antipsychotic medication he is unable to make rational decisions and has been unable to maintain his mental health stability and care for himself outside of hospital setting. His paranoia includes an expressed belief that he thinks staff may be attempting to inject him with HIV virus which further interferes with his ability to comply with treatment and stabilize his psychosis. It is my medical opinion that medication over objection with Invega Sustenna should be provided as this is the least restrictive treatment option at this time. 11/06 - Sustenna 156 mg. IM today over objection based on the recommendations of Dr. Kapoor and Dr. Gomez - Will continue Invega 3 mg. HS for now - Remains on a 303, and will file for 304 this week. 11/07 - File for a 304 involuntary commitment. Arrange aftercare with a psychiatrist and therapist. He met with his blended case manager specialist, Darlyn Plascencia yesterday. We will have to clarify how he will get his long-acting injectable as an outpatient. He is due for the maintenance dose of 117 mg daily in 4 weeks. - Family meeting with father scheduled for 11/11/2016. - Which also [facility] staff and touch base with his roommate prior to discharge regarding safety concerns. He indicates that his roommate has a sword, and would recommend this be secured prior to discharge. - Heena Deluca prior auth approved, and prescription for 117mg IM due called into [facility]. They need to know where he will be receiving the shot and the name of the outpatient psychiatrist who will be prescribing after discharge to ensure continuity or care. 11/08 - Continue current plan - 304 hearing 11/14 - More cooperative recently but remains paranoid. Continue plan as above 11/10 - less paranoid and irritable in last 24H. awaiting 304 hearing 11/11 - The patient continues to be less paranoid, although he insists that we are consciously giving him medications that we know will harm him, and he has signs prefers current circumstances to various intentional behaviors of his parents. Particular concern is the fact the patient seems to have no insight at all into his illness, and tells me that he has no intention of taking psychiatric medications upon discharge. He has no reasonable explanation for the fact that he was reportedly psychiatrically hospitalized, and, certainly, he has no reasonable explanation for why psychiatrists and other mental health professionals have been telling him that he needs to take psychiatric medications. His thinking is very disorganized, to the degree that I do not find that he would be able to safely care for his own physical needs without the active structure and support of an inpatient psychiatric unit. 11/12 - today, the patient appears to be free of any psychotic symptoms. No delusional material is identified the patient's thought content, and he reports that he is not experiencing perceptual disturbances. Staff observation are consistent with the patient's assertion in this regard. Yesterday, he had told me that he would not take medications on discharge, and that his only problem had been that he had chronic pain from a broken bone in his foot. Later in today's session he acknowledges that in [place] does seem to be helping him in terms of keeping his thoughts more "together," and in terms of keeping his emotions "more calm." Today, he denies that he had said that and insists that he will take psychiatric medications, not necessarily because he believes that he needs them, but because he understands that he will be on an outpatient commitment and will be required to take them. His thinking is more organized today. His associations are initially tight, but loosen with time if not provided external structure and organizing interventions. He denies both suicidal and homicidal ideations. He remains somewhat hyper mosque, and makes statements such as "I'm affiliated with all the churches in [facility] [employer]. " (2) Methamphetamine abuse As psychosis improves, will educate about the risks of ongoing substance abuse and recommendations for abstinence. (3) Cannabis abuse As psychosis improves, will educate about the risks of ongoing substance abuse and recommendations for abstinence. (4) Hypertension BP initially high in ER and h/o HTN, but has now come down, so will continue to monitor for now. Return to PCP for OP f/u. 11/03 - continues to have episodic bradycardia and hypertension, likely exacerbated by periods of agitation. Will continue to monitor. (5) Obesity Encourage healthy diet and exercise. Refer back to PCP for ongoing management. 11/12/16 - Today, I reviewed the risks of metabolic syndrome with the patient, and reviewed with him the importance of portion control and regular exercise in order to avoid obesity, hyperlipidemia, and hyperglycemia. The patient indicated understanding and committed to an exercise program upon discharge. (6) S/P hardware removal 2 weeks s/p hardware removal R ankle. Appreciate ortho recs - cast placed, walking with walker, elevate as needed for swelling, moved toes frequently, keep cast dry when bathing. Follow-up 11/07/2016 at [facility] orthopedics. 11/02 - Ortho contacted at patient's requests re: repeated demands to have cast removed. Appreciate recs/care. 11/04 - Patient again reminded of the orthopedic's surgeon's recommendations to limit weight bearing on his foot, elevate the foot at times use ice and anti- inflammatories for pain. He continues to walk laps around the unit despite reporting pain. 11/08 - Encourage patient to wear post op boot per ortho 11/12 - The patient is sometimes non-adeherent with his boot, but is "trying " to keep using it because he realizes that not using it could cause complications. He notes that the pain is less. Discharge / Aftercare Planning Primary Care Physician: Name: Dr Mullins Psychiatrist: Name: You will be assignded a Psyhiatrist after your intake appointment w/ [facility] Therapist: Name: none Date of Appointment: Nov 19, 2016 Time of Appointment: 10:00am Assistant Teaching Professor: Name: none Visit Code E&M Code: 28381 Inventory Assets Strengths: Supportive father, willing for treatment Risk Factors Assessment Male: Yes : Yes /single/: Yes Higher / Fall in social status: No Access to guns: No (but reports there is a sword in his apartment) Health problems: Yes Mental Health Diagnoses: Yes Substance use disorders: Yes Previous attempt: Yes Family history of suicide: No Previous psychiatric stay: Yes Hopelessness: No Smoker: Yes Protective Factors Assessment Gnosticist beliefs: Yes : No Responsible for young children: No Employed: No Stable relationships: No Supportive family: Yes Good rapport with provider: No Data Vital Signs Last 24 Hrs: Date Time Temp Pulse Resp B/P (MAP) Pulse Ox O2 Delivery O2 Flow Rate FiO2 11/12/16 06:58 36.6 50 16 136/76 59 134/87 Problem Qualifiers (1) Schizoaffective disorder: Schizoaffective disorder type: bipolar Qualified Codes: F25.0 - Schizoaffective disorder, bipolar type
[2016-11-13 06:49] VITALS: BP_SYST 137; BP_SYST 139; BP_DIAS 75; BP_DIAS 88; PULSE 66; PULSE 87; TEMP 37
[2016-11-13] MEDS: PALIPERIDONE 3 MG TABCR PO SCH (07:46)
--- NOTE | 2016-11-13 11:48 | Psychiatric Progress Notes ---
Progress Note Date of Service Nov 13, 2016. Interval History Diogo Hernández is a 25-year-old single male who has at times reported being homeless and at other times says he lives in an apartment through [facility] in [place] with roommate, has a history of schizoaffective disorder bipolar type, noncompliance with treatment, and substance abuse, and presented to the ER with police for psychosis on 10/30/2016. He was admitted on a 201 voluntary commitment, but had to be placed on an involuntary 302 commitment on 11/02/16 after he started refusing medications, decompensated, and demanded to leave. He is on a 303 as of 11/04/16. Chief Complaint "I hope that I get released tomorrow. I feel ready." Subjective Patient was seen & assessed interval progress reviewed with Treatment Team. I saw the patient individually this morning in order to assess his current mental status, consider any necessary adjustments in his treatment regimen, and responded any questions and concerns that the patient might have. I also provided instructions education regarding abstinence from drugs of abuse, such as marijuana and alcohol, discussed the importance of adhering to recommendations regarding the limitations as his foot heals, and the importance of adherence with his outpatient medications and other treatments. The patient indicated understanding. We processed several feelings that he is experiencing about his illness and the various losses he has experienced as a result of it. He says he feels eager to "get on" with his life, but does wonder how the stress of community reentry will affect him. Today, his thought processes seem to be significantly more organized than they were even yesterday, and he seems to have developed genuine insight into the fact that he does have a mental illness and will need to continue in psychiatric treatment following discharge. He is able to articulate and identify the ways in which she has improved clinically in the hospital. Review of Systems Constitutional: + fever, No chills, No sweats, No weight loss, No weakness, No fatigue, No problem reported ENT: No hearing loss, No unusual epistaxis, No nasal symptoms, No sore throat, No tinnitus, No dental problems, No trouble swallowing, No problem reported Respiratory: No cough, No sputum, No wheezing, No shortness of breath, No dyspnea on exertion, No dyspnea at rest, No hemoptysis, No problem reported Cardiovascular: No chest pain, No orthopnea, No PND, No edema, No claudication , No palpitations, No problem reported Abdomen: No pain, No nausea, No vomiting, No diarrhea, No constipation, No GI bleeding, No problem reported Musculoskeletal: + problem reported (As above the patient complains of ongoing pain on the lateral surface of his right foot and ankle, following surgical repair of an old fracture approximately 3 weeks ago.) Neurologic: No memory loss, No paralysis, No weakness, No numbness/tingling, No vertigo, No balance problems, No problem reported Psychiatric: + anxiety (mild), No depression symptoms, No anhedonism, No insomnia Integumentary: No rash, No itch, No new/changing skin lesions, No color change , No bleeding, No problem reported Medication Side Effects: Patient reports that his medications are "interfering with [my] spiritual life. " He also says that the medications "interfere with [my] top top athletic abilities," and that they cause sedation. Sleep Information Total Hours of Sleep: 5.50 Meal Information Percent of Breakfast Consumed: 90 Percent of Lunch Consumed: 100 Percent of Dinner Consumed: 100 Mental Status Exam During interview pt is: alert and oriented, cooperative Appearance: appropriately dressed, appropriately groomed Eye contact is: good Motor behavior is: steady gait & station, no abnormal motor movements, other ( the patient is wearing an orthopedic boot and walks with a slowed gait) Speech: normal in rate, rhythm & volume Affect: constricted (The patient affect remains mildly constricted, but he is able to engage and his affect brightens as he discusses various topics of interest.) Mood is: other ("Good. Calm. Maybe a little nervous about my hearing tomorrow.") Thought process: goal directed, linear, logical, tangential Thought content: preoccupation (the patient pills repeatedly on the fact that he believes that chronic pain has had on his mental status, and his insistence that he has been given medications that are causing him harm.), other (The patient is less grandiose today. He describes a number of interests but does not seemed overvalue his strengths and talents. He also remains somewhat hyperreligious. However, no systematized delusional material is identified and the patient's thought content.) Suicidal thought are: denied Homicidal thoughts are: denied Hallucinations: denies auditory, denies visual Cognition: attention grossly intact, language grossly intact Intelligence estimated to be: average Insight: fair Judgement: fair Summary of Past History The patient continues to improve. His associations have tightened to the degree that he no longer requires external structure to stay on task and on topic. He also reports that he recognizes that he does have a psychiatric problem and is in need of psychiatric treatment. Of note, today he did not attribute his problems to his foot pain, although he does continue to feel that pain, and difficulty sleeping because of that, have contributed. I do not see evidence of any psychotic features. No delusional material is identified the patient's thought content, and he does not provide any evidence that he is experiencing perceptual disturbances. He continues to report that he does not have any suicidal, and he also does not have thoughts of causing physical harm to the person her properties of others. His expressed plan following discharge is to continue in outpatient treatment and adhere to his outpatient treatment regimen. Medication Trials (1) Past Psych Meds Include but not limited to (from records, patient poor historian): lithium Depakote Haldol Trileptal Ativan Ambien Abilify Risperdal Zyprexa Risperdal Consta Last Edited By: Nadine Kapoor on Oct 31, 2016 10:56 Impression The patient has been cooperative with treatment and is not currently showing psychotic features. He is scheduled for a 304 hearing next and if behavior remains appropriate, and psychosis improved, could consider direct 304 to OP. Plan (1) Schizoaffective disorder - Get collateral information from patient's father, and obtain records of any treatment he has received since his last hospitalization here in 2014. 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 - The patient is willing to take risperidone, which he indicates he has been on in the past and was helpful. I will start 1 mg twice a day and 1mg q 4 hrs prn psychosis, check fasting labs, and we will titrate as tolerated to an effective dose. He may benefit from a long-acting injectable. - Medically necessary private room for psychosis. 10/31 - Diagnosis clarified and collateral obtained from father (see above). - Change risperidone to paliperidone, with a plan to start a long-acting injectable in the next several days, as soon as the patient is willing to accept it. He indicated a willingness to get the shot, but then stated that he wanted to wait until his records were reviewed and he took the oral medication first. - Discontinue when necessary risperidone and start Haldol 5 mg when necessary. His father reports he has been on this medication at multiple points in the past. - Fasting lipid profile performed today was normal, and fasting glucose was slightly elevated at 101. - File for a 304 inpatient commitment with a hearing to be held and 5 business days, this will be converted to an involuntary outpatient commitment at the time of discharge. Hopefully this will assist with improving compliance with medications and appointments as an outpatient, as he has chronic poor compliance , leading to frequent inpatient admissions and likely playing a role in his numerous arrests and incarcerations as well. - He will need a family meeting with his parents once he is less psychotic and able to participate. May also want to contact roommate prior to discharge to ensure there are no weapons and that the sword is secured (preferentially removed from the apartment). - Social work to contact the [facility] service unit to determine if he has case management services, and if not, to place a referral. He will also need outpatient psychiatric care, therapy, and other support services such as psych rehabilitation. 11/01 - Start Invega Sustenna 234 mg IM today and 156 mg IM on 11/04 - Continue Invega 3 mg HS 11/02 - Submitted 72 hour notice. Will attempt to encourage him to rescind and engage in ongoing treatment for severe psychosis, but may need to 302 if unwilling. - Continue Haldol and increase to 10 mg and Ativan (increased to 2 mg) both by mouth and IM prn for psychosis and agitation, as his behavior is escalating on the unit. - Social work attempted to arrange case management but was told he would have to schedule an intake first. Will contact the [facility] Friday to review that he will be on an outpatient involuntary commitment and will require [facility] services LOC. 11/03 - Refusing to rescind 72 hour notice, increasingly agitated and psychotic, demanding to leave, and stating he will refuse all medications. Placed on a 302 involuntary commitment. May need to consider medications over objection, which are indicated due to history of good response to antipsychotic medication , current severe psychotic symptoms impairing his ability to function or make informed decisions about treatment, and significant risks (suicide, violence towards others, worsening condition and inability to function) associated with ongoing symptoms and refusal of appropriate treatment. 11/04 - Patient now refusing both oral Invega and his second loading dose of Invega Sustenna. We again reviewed the indication for this medication today, as well as the rest of his treatment plan, which he disagrees with this he does not believe he has a mental illness any longer, feeling that he was cured when the screw was removed from his foot. He has no outpatient providers, no supports in the community, lacks insight, and continues to display psychotic symptoms and an inability to provide for his own basic needs including health, medications, safety, and housing (as he remains paranoid about his roommate who he thinks is in the special forces and may wish him harm). File for a 303 involuntary commitment, and recommend medications over objection, as he has responded to antipsychotics in the past, and without them is unable to rationally manipulate information, ask on his paranoia and delusions, and has had numerous arrests and incarcerations. He will be seen by Dr. Gomez tomorrow, who can give a second opinion on medications over objection. If granted, he can receive his second Sustenna shot and the oral Invega can be discontinued. 11/05 -Patient remains paranoid at this time. He has responded to antipsychotics in the past. Without antipsychotic medication he is unable to make rational decisions and has been unable to maintain his mental health stability and care for himself outside of hospital setting. His paranoia includes an expressed belief that he thinks staff may be attempting to inject him with HIV virus which further interferes with his ability to comply with treatment and stabilize his psychosis. It is my medical opinion that medication over objection with Invega Sustenna should be provided as this is the least restrictive treatment option at this time. 11/06 - Sustenna 156 mg. IM today over objection based on the recommendations of Dr. Kapoor and Dr. Gomez - Will continue Invega 3 mg. HS for now - Remains on a 303, and will file for 304 this week. 11/07 - File for a 304 involuntary commitment. Arrange aftercare with a psychiatrist and therapist. He met with his blended bilingual patient support caseworker, Darlyn Plascencia yesterday. We will have to clarify how he will get his long-acting injectable as an outpatient. He is due for the maintenance dose of 117 mg daily in 4 weeks. - Family meeting with father scheduled for 11/11/2016. - Which [facility] and touch base with his roommate prior to discharge regarding safety concerns. He indicates that his roommate has a sword, and would recommend this be secured prior to discharge. - Heena Deluca prior auth approved, and prescription for 117mg IM due called into [facility]. They need to know where he will be receiving the shot and the name of the outpatient psychiatrist who will be prescribing after discharge to ensure continuity or care. 11/08 - Continue current plan - 304 hearing 11/14 - More cooperative recently but remains paranoid. Continue plan as above 11/10 - less paranoid and irritable in last 24H. awaiting 304 hearing 11/11 - The patient continues to be less paranoid, although he insists that we are consciously giving him medications that we know will harm him, and he has signs prefers current circumstances to various intentional behaviors of his parents. Particular concern is the fact the patient seems to have no insight at all into his illness, and tells me that he has no intention of taking psychiatric medications upon discharge. He has no reasonable explanation for the fact that he was reportedly psychiatrically hospitalized, and, certainly, he has no reasonable explanation for why psychiatrists and other mental health professionals have been telling him that he needs to take psychiatric medications. His thinking is very disorganized, to the degree that I do not find that he would be able to safely care for his own physical needs without the active structure and support of an inpatient psychiatric unit. 11/12 - today, the patient appears to be free of any psychotic symptoms. No delusional material is identified the patient's thought content, and he reports that he is not experiencing perceptual disturbances. Staff observation are consistent with the patient's assertion in this regard. Yesterday, he had told me that he would not take medications on discharge, and that his only problem had been that he had chronic pain from a broken bone in his foot. Later in today's session he acknowledges that in [place] does seem to be helping him in terms of keeping his thoughts more "together," and in terms of keeping his emotions "more calm." Today, he denies that he had said that and insists that he will take psychiatric medications, not necessarily because he believes that he needs them, but because he understands that he will be on an outpatient commitment and will be required to take them. His thinking is more organized today. His associations are initially tight, but loosen with time if not provided external structure and organizing interventions. He denies both suicidal and homicidal ideations. He remains somewhat hyper samaritan, and makes statements such as "I'm affiliated with all the churches in [employer]. " 11/13 - The patient remains free of psychotic symptoms, and his thought processes continue become more organized and tight. He acknowledges that he is "a little nervous" about his upcoming hearing tomorrow, but understands the purpose. He says that his plans after discharge include following his after care instructions, taking his medications, keeping appointments, and "taking it easy" so that his foot can continue to heal. Today, he told me that the medications are "definitely helping," and that he is aware that his thoughts are "easier to process, then they had been. He also recognizes that he is much more calm and less reactive. We are planning to recommend outpatient commitment at tomorrow's hearing, and he has been approved returned home with outpatient aftercare arranged. (2) Methamphetamine abuse As psychosis improves, will educate about the risks of ongoing substance abuse and recommendations for abstinence. (3) Cannabis abuse As psychosis improves, will educate about the risks of ongoing substance abuse and recommendations for abstinence. 11/13 -- Today, we discussed the importance of his avoiding use of all mood altering chemical substances given his diagnosis of schizoaffective disorder. He acknowledges that marijuana seems to help him feel "more level," but he is able to commit to abstinence from all nonprescribed drugs and alcohol following discharge he also agrees to notify his outpatient provider if his mood does not feel stable, or if he notices his thoughts have become more confused or more difficult to process. (4) Hypertension BP initially high in ER and h/o HTN, but has now come down, so will continue to monitor for now. Return to PCP for OP f/u. 11/03 - continues to have episodic bradycardia and hypertension, likely exacerbated by periods of agitation. Will continue to monitor. (5) Obesity Encourage healthy diet and exercise. Refer back to PCP for ongoing management. 11/12/16 - Today, I reviewed the risks of metabolic syndrome with the patient, and reviewed with him the importance of portion control and regular exercise in order to avoid obesity, hyperlipidemia, and hyperglycemia. The patient indicated understanding and committed to an exercise program upon discharge. 11/13/16 - The patient is aware that he needs to avoid placing stress on his right foot, following the surgery of 3 weeks ago. He says that he realizes that this is important, and plans to adhere to the recommendation. However, he expresses frustration because he says that without physical exercise on a regular basis he tends to gain weight. He understands that caution is important in order to allow his foot to heal properly so that he can resume more vigorous exercise when medically cleared. (6) S/P hardware removal 2 weeks s/p hardware removal R ankle. Appreciate ortho recs - cast placed, walking with walker, elevate as needed for swelling, moved toes frequently, keep cast dry when bathing. Follow-up 11/07/2016 at [facility] orthopedics. 11/02 - Ortho contacted at patient's requests re: repeated demands to have cast removed. Appreciate recs/care. 11/04 - Patient again reminded of the orthopedic's surgeon's recommendations to limit weight bearing on his foot, elevate the foot at times use ice and anti- inflammatories for pain. He continues to walk laps around the unit despite reporting pain. 11/08 - Encourage patient to wear post op boot per ortho 11/12 - The patient is sometimes non-adeherent with his boot, but is "trying " to keep using it because he realizes that not using it could cause complications. He notes that the pain is less. 11/13 - Staff reports that the patient's adherence with his orthopedic appliance has been consistent. He continues to experience pain in the lateral surface of his foot, but notes that it has been improving gradually. He understands the importance of avoiding unnecessary weight-bearing and avoiding strenuous exercises that affect his feet. Discharge / Aftercare Planning Primary Care Physician: Name: Dr Mullins Psychiatrist: Name: You will be assignded a Psychiatrist after your intake appointment w/ [facility] Appointment Notes: next injection is due 12/04 Therapist: Name: andressa Date of Appointment: Nov 19, 2016 Time of Appointment: 10:00am [employer] Apprentice: Name: Darlyn Rodriguez Visit Code E&M Code: 57549 Inventory Assets Strengths: Supportive father, willing for treatment Risk Factors Assessment Male: Yes : Yes /single/: Yes Higher / Fall in social status: No Access to guns: No (but reports there is a sword in his apartment) Health problems: Yes Mental Health Diagnoses: Yes Substance use disorders: Yes Previous attempt: Yes Family history of suicide: No Previous psychiatric stay: Yes Hopelessness: No Smoker: Yes Protective Factors Assessment Orthodox beliefs: Yes : No Responsible for young children: No Employed: No Stable relationships: No Supportive family: Yes Good rapport with provider: No Data Vital Signs Last 24 Hrs: Date Time Temp Pulse Resp B/P (MAP) Pulse Ox O2 Delivery O2 Flow Rate FiO2 11/13/16 06:49 37.0 66 16 137/75 87 139/88 Problem Qualifiers (1) Schizoaffective disorder: Schizoaffective disorder type: bipolar Qualified Codes: F25.0 - Schizoaffective disorder, bipolar type
[2016-11-13] MEDS: ACETAMINOPHEN 325 MG TAB PO PRN (14:54)
[2016-11-14 06:46] VITALS: BP_SYST 142; BP_SYST 145; BP_DIAS 88; BP_DIAS 91; PULSE 62; PULSE 66; TEMP 36.2
[2016-11-14] MEDS: PALIPERIDONE 3 MG TABCR PO SCH (07:45)
[2016-11-14] MEDS ORDERED: PALI117I IM (10:03)
[2016-11-14] MEDS ORDERED: PALI3TAB PO (10:03)
--- NOTE | 2016-11-14 10:37 | Discharge Instructions ---
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 Smoker FDA approved Prescription: declined med & out pt counseling, non-smoker Problem Qualifiers (1) Schizoaffective disorder: Schizoaffective disorder type: bipolar Qualified Codes: F25.0 - Schizoaffective disorder, bipolar type (2) Hypertension: Hypertension type: essential hypertension Qualified Codes: I10 - Essential ( primary) hypertension
[2016-12-04] MEDS ORDERED: INVEGA SUSTENNA 117 MG/ML 0.75 ML SYR IM ONE (09:00)
== END 2016-11-14 11:10 | disposition home health service (06) | DRG 885 ==
LOC: EDBD 08:14 → C.EDA 08:15 → C.MHU 13:23
PROVIDERS: ADMIT Psychiatry & Neurology Psychiatry; ATTEND Psychiatry & Neurology Psychiatry
DX: F25.0 Schizoaffective disorder, bipolar type (principal); F12.159 Cannabis abuse with psychotic disorder, unspecified; F15.159 Other stimulant abuse with stimulant-induced psychotic disorder, unspecified; Z87.891 Personal history of nicotine dependence; I10 Essential (primary) hypertension; E66.9 Obesity, unspecified; Z68.28 Body mass index [BMI] 28.0-28.9, adult; Z98.890 Other specified postprocedural states

== ENCOUNTER → 2016-11-22 | Outpatient (CLI) | payer BC, OTHER ==
[~2016-11-22] MED LIST changes: +ATR25 PO; -HYDR-5688 PO; +PALI117I IM; +PALI156I IM; +PALI3TAB PO; +PALI6TAB3 PO
== END | disposition home or self-care (01) ==
LOC: C.RDSM 13:20
PROVIDERS: ATTEND Physical Medicine & Rehabilitation Sports Medicine
DX: M79.671 Pain in right foot (principal); Z96.9 Presence of functional implant, unspecified

== ENCOUNTER 2016-11-27 00:19 | Emergency (ER) | payer BC, OTHER ==
[~2016-11-27] VITALS: Ht 182.9 cm; Wt 104.1 kg
[~2016-11-27 00:19] MED LIST changes: -ATR25 PO; -PALI156I IM; -PALI6TAB3 PO
[2016-11-27 00:22] VITALS: Ht 182.9 cm; Wt 104.1 kg
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
[2016-11-27 01:07] LABS: HEMATOCRIT 44.5 % (42-52); MEAN CELL VOLUME 83.8 fL (80-100); MEAN CORPUSCULAR HEMOGLOBIN 28.8 pg (25-34); MEAN CORPUSCULAR HGB CONC 34.4 g/dl (32-36); MEAN PLATELET VOLUME 9.8 fL (7.4-10.4); PLATELET COUNT 221 K/uL (130-400); RED BLOOD COUNT 5.31 M/uL (4.7-6.1); WHITE BLOOD COUNT 10.24 K/uL (4.8-10.8)
[2016-11-27 01:08] LABS: URINE APPEARANCE CLEAR (CLEAR); URINE BILIRUBIN NEG (NEG); URINE COLOR YELLOW; URINE SPECIFIC GRAVITY 1.019 (1.000-1.030)
[2016-11-27 01:09] LABS: URINE NITRITE NEG (NEG); UROBILINOGEN NEG (NEG)
[2016-11-27 01:14] LABS: MANUAL MICROSCOPIC REQUIRED? NO; REVIEW REQ? NO
[2016-11-27 01:34] LABS: BENZODIAZEPINE, URINE NEG (NEG); COCAINE,URINE NEG (NEG); PHENCYCLIDINE, URINE NEG (NEG)
[2016-11-27 01:34] LABS: BUN/CREATININE RATIO 7.8 (10-20); CALCIUM 9.3 mg/dl (8.5-10.1); CREATININE 1.3 mg/dl (0.60-1.40); POTASSIUM 3.3 mmol/L (3.5-5.1)
[2016-11-27 01:44] LABS: ACETAMINOPHEN < 2 ug/ml (10-30); THYROID STIMULATING HORMONE 1.56 uIu/ml (0.300-4.500)
[2016-11-27] MEDS ORDERED: PALIPERIDONE 3 MG TABCR PO STA (06:36)
[2016-11-27 09:52] VITALS: BP 139/67; PULSE 67; TEMP 36.8; O2SAT 96
--- NOTE | 2016-11-27 15:47 | EMERGENCY ROOM VISIT NOTE ---
ED Visit Note First contact with patient: 07:08 25 yr old male with history of schizophrenia arrived overnight with acute psychotic break. Initially evaluated and medically cleared by Dr Silva and patient signed 201 voluntary admission paperwork. Signed out to me awaiting mental health placement. No issues during stay. Accepted to [place] for further evaluation and treatment.
== END 2016-11-27 09:53 ==
LOC: EDBD 00:19 → C.EDA 00:20
DX: F23 Brief psychotic disorder (principal); Z91.14 Patient's other noncompliance with medication regimen; F25.9 Schizoaffective disorder, unspecified; F31.9 Bipolar disorder, unspecified; F12.10 Cannabis abuse, uncomplicated; I10 Essential (primary) hypertension; E66.9 Obesity, unspecified; Z68.31 Body mass index [BMI] 31.0-31.9, adult; F17.210 Nicotine dependence, cigarettes, uncomplicated

== ENCOUNTER 2016-12-23 09:12 | Inpatient (IN) | payer BC, OTHER ==
[~2016-12-23] VITALS: Ht 182.9 cm; Wt 108.0 kg
[2016-12-23] MEDS ORDERED: ACETAMINOPHEN 325 MG TAB PO STA (09:47)
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
[2016-12-23 10:00] LABS: URINE APPEARANCE CLOUDY (CLEAR); URINE COLOR DK YELLOW; URINE NITRITE NEG (NEG); URINE PH 6.5 (4.5-7.5); URINE SPECIFIC GRAVITY 1.033 (1.000-1.030); UROBILINOGEN NEG (NEG)
[2016-12-23 10:11] LABS: BASO % 0.2 %; BASO ABS # 0.01 K/uL (0-0.2); COMPLETE YES; EOS % 1.3 %; HEMATOCRIT 42.2 % (42-52); IG% 0.3 %; LYMPH % 14.1 %; LYMPH ABS # 0.88 K/uL (1.2-3.4); MEAN CELL VOLUME 84.4 fL (80-100); MEAN CORPUSCULAR HEMOGLOBIN 29.2 pg (25-34); MEAN CORPUSCULAR HGB CONC 34.6 g/dl (32-36); MEAN PLATELET VOLUME 9.4 fL (7.4-10.4); MONO % 7.8 %; NEUT % 76.3 %; PLATELET COUNT 201 K/uL (130-400); WHITE BLOOD COUNT 6.25 K/uL (4.8-10.8)
[2016-12-23 10:19] LABS: MANUAL MICROSCOPIC REQUIRED? NO; REVIEW REQ? NO; URINE BILIRUBIN NEG (NEG)
[2016-12-23 10:28] LABS: BENZODIAZEPINE, URINE NEG (NEG); COCAINE,URINE NEG (NEG); PHENCYCLIDINE, URINE NEG (NEG)
[2016-12-23 10:31] LABS: BUN/CREATININE RATIO 8.3 (10-20); CALCIUM 8.6 mg/dl (8.5-10.1); CREATININE 1.1 mg/dl (0.60-1.40); POTASSIUM 3.3 mmol/L (3.5-5.1)
[2016-12-23 10:42] LABS: ALB/GLOB RATIO 1.2 (0.9-2); THYROID STIMULATING HORMONE 1.48 uIu/ml (0.300-4.500)
[2016-12-23] MEDS ORDERED: NURSING VERBAL MED ORDER ONE ×2 (12:45→19:30)
[2016-12-23] MEDS ORDERED: NICOTINE 21 MG/24 HR TDSY ONE (12:58)
[2016-12-23 20:07] VITALS: O2SAT 98
[2016-12-23] MEDS ORDERED: BISMUTH SUBSALICYLATE PER ML OMNICELL CHARGE PO PRN (20:45)
[2016-12-23] MEDS ORDERED: MAGNESIUM HYDROXIDE SUSP 30 ML UDC PO PRN (20:45)
[2016-12-23] MEDS ORDERED: SODIUM CHLORIDE 0.65% NA SOLN 45 ML (OCEAN) PRN (20:45)
[2016-12-23] MEDS ORDERED: HALOPERIDOL LACTATE 5 MG/ML 1 ML VIAL IM PRN (20:45)
[2016-12-23] MEDS ORDERED: ACETAMINOPHEN 325 MG TAB PO PRN (20:45)
[2016-12-23] MEDS ORDERED: ALUMINUM/MAGNESIUM SUSP 30 ML UDC PO PRN (20:45)
[2016-12-23] MEDS ORDERED: LORAZEPAM 2 MG/ML 1 ML VIAL IM PRN (20:45)
[2016-12-23 21:12] VITALS: BP 148/70; PULSE 78; TEMP 37.3; BMI 32.3
[2016-12-23 21:28] VITALS: BP 148/70; PULSE 78; TEMP 37.3; Ht 182.9 cm; Wt 108.0 kg
[2016-12-23] MEDS ORDERED: PALIPERIDONE 3 MG TABCR PO SCH (22:00)
[2016-12-23] MEDS: hydrOXYzine HCL 25 MG TAB PO PRN (22:01)
[2016-12-23] MEDS ORDERED: PALI3TAB PO (22:43)
[2016-12-23] MEDS ORDERED: PALI117I IM (22:43)
[2016-12-24 07:17] VITALS: BP_SYST 113; BP_SYST 130; BP_DIAS 75; BP_DIAS 78; PULSE 45; PULSE 68; TEMP 36.9
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
[2016-12-24] MEDS: NICOTINE 21 MG/24 HR TDSY TD SCH (08:30)
[2016-12-24] MEDS: LORAZEPAM 2 MG TAB PO PRN ×2 (09:02→18:00)
[2016-12-24] MEDS: HALOPERIDOL 5 MG TAB PO PRN ×2 (09:02→18:00)
[2016-12-24] MEDS: hydrOXYzine HCL 25 MG TAB PO PRN (10:38)
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
[2016-12-24] MEDS: PALIPERIDONE 3 MG TABCR PO SCH (22:13)
[2016-12-25 06:40] VITALS: BP_SYST 125; BP_SYST 141; BP_DIAS 78; BP_DIAS 96; PULSE 52; PULSE 82; TEMP 36.5
[2016-12-25] MEDS: NICOTINE 21 MG/24 HR TDSY TD SCH (08:39)
[2016-12-25] MEDS: HALOPERIDOL 5 MG TAB PO PRN (09:29)
[2016-12-25] MEDS: LORAZEPAM 2 MG TAB PO PRN ×2 (09:29→16:04)
--- NOTE | 2016-12-25 11:19 | Psychiatric Progress Notes ---
Progress Note Date of Service Dec 25, 2016. Interval History 6-year-old single white male with schizoaffective disorder bipolar type, history of noncompliance with treatment, and polysubstance abuse who presents with psychosis, depression, and suicidal thoughts with multiple plans. He is admitted voluntarily. He is on an outpatient 304 commitment, but indicates that he has not been taking his psychotropic medications since discharge from the hospital last month. It is not clear what happened with his long-acting injectable that he was started on here in November, as he was due for his maintenance shot on 12/04/2016, but states he did not get it. We will need to coordinate with his outpatient providers to determine what is happened since his discharge, and for now have resumed oral Invega for his schizoaffective disorder. Chief Complaint "I'm OK.". Subjective Patient was seen & assessed interval progress reviewed with Treatment Team. The patient is tired today and was napping when approached for the interview. He wants to know when he can get out of the hospital feeling like he is better now. FASH[employer]YING [employer]NSH[employer] he acknowledges that he "didn't know what to do" because his girlfriend was trying to kill herself by cutting her wrist and he picked up a knife, put it to his own wrist, wondering what it would feel like. He says that he realized "that was crazy" and so brought himself to the hospital. Today he says that he feels better and wants to get home to his apartment. He says that his parents have been very supportive. He says that he did not get a Sustenna injection while at [facility] and says that he saw his psychiatrist on , who told him to "be more positive". Today he has been pacing around the unit, and presents as mildly irritable. He is denying aud/vis hallucinations, and denying SI/HI. Review of Systems Constitutional: + fatigue ENT: No hearing loss, No unusual epistaxis, No nasal symptoms, No sore throat, No tinnitus, No dental problems, No trouble swallowing, No problem reported Respiratory: No cough, No sputum, No wheezing, No shortness of breath, No dyspnea on exertion, No dyspnea at rest, No hemoptysis, No problem reported Cardiovascular: No chest pain, No orthopnea, No PND, No edema, No claudication , No palpitations, No problem reported Abdomen: No pain, No nausea, No vomiting, No diarrhea, No constipation, No GI bleeding, No problem reported Musculoskeletal: No joint pain, No muscle pain, No swelling, No calf pain, No problem reported Neurologic: No memory loss, No paralysis, No weakness, No numbness/tingling, No vertigo, No balance problems, No problem reported Psychiatric: No depression symptoms, No anhedonism, No anxiety, No insomnia, No substance abuse, No problem reported Integumentary: No rash, No itch, No new/changing skin lesions, No color change , No bleeding, No problem reported Sleep Information Total Hours of Sleep: 7.50 Meal Information Percent of Breakfast Consumed: 100 Percent of Lunch Consumed: 100 Percent of Dinner Consumed: 100 Mental Status Exam During interview pt is: cooperative (but a limited historian due to psychosis and disorganization) Appearance: appropriately dressed, other (dressed in shorts and a T-shirt, head is shaved, overweight) Eye contact is: fair Motor behavior is: steady gait & station, no abnormal motor movements Speech: normal in rate, rhythm & volume Affect: irritable Mood is: other ("OK") Thought process: looseness of associations (at times answers with unrelated information, other times is goal directed, but answers are vague) Thought content: reality based without delusions, other (gives conflicting reports, and struggles to answer some questions) Suicidal thought are: denied Homicidal thoughts are: denied Hallucinations: denies auditory, denies visual Cognition: other (memory and attention are impaired by psychosis) Intelligence estimated to be: consistent with level of education Insight: impaired Judgement: impaired Impression Diogo is already asking about discharge despite having just been admitted yesterday. It is still entirely unclear when he received his last Sustenna injection as we have not yet received any outside records. He is, perhaps, slightly more organized than yesterday, but already minimizing his symptoms in order to hasten discharge. He is taking his medications here, and asking for prn's, but medication compliance as an OP remains a concern. We will continue to gather information toward the need for further inpatient treatment. Plan (1) Schizoaffective disorder -Increase oral Invega to 6 mg qhs, and determine when patient got his last Sustenna shot. - Fasting lipid profile and glucose performed 10/31/2016. Cholesterol levels were normal, and glucose was elevated at 101. - Haldol 5mg po/im and lorazepam 2mg po/im prn psychosis/agitation. Benztropine 1mg prn EPS. Hydroxyzine prn anxiety/insomnia. - Get records from recent [facility] hospitalization and Dr. Chan at [facility], and coordinate care with director of casework. 12/25 - Continue Invega 6 mg HS - Await records from [place] and Dr. hCan to determine date of last Sustenna injection. (2) Suicidal ideation Q 15 min checks for safety. Encourage group participation and programming. Work on coping skills and safety plan. (3) Cannabis abuse The patient has been educated about the risks of ongoing cannabis abuse, and the recommendations for abstinence. He indicates that he would like to abstain from substance abuse. He may benefit from substance abuse treatment, as this is a chronic problem. (4) Alcohol abuse The patient indicates he has been binge drinking. He has been educated about the risks of alcohol use and the recommendations for abstinence. We will explore options for substance abuse treatment. (5) Hypertension Blood pressure was initially high, but this morning is within the normal range; continue to monitor. (6) Obesity Significant weight gain in the past 2 months, and is obese with a BMI of 32.291. Encouraged healthy food choices, daily exercise, and weight loss. (7) Nicotine abuse Offer nicotine patch and or gum for cravings while here, and educate the patient about the risks of nicotine abuse and recommendations for smoking cessation. Discharge / Aftercare Planning Primary Care Physician: Name: Dr Mullins Psychiatrist: Name: Dr Roemo Therapist: Name: [facility] intake will be scheduled Pot Filler: Name: Darlyn Rodriguez Visit Code E&M Code: 82556 Inventory Assets Strengths: Has housing, supportive parents, is on an outpatient involuntary commitment. Risk Factors Assessment Male: Yes : Yes /single/: Yes Higher / Fall in social status: No Health problems: No Mental Health Diagnoses: Yes Substance use disorders: Yes Previous attempt: Yes Family history of suicide: No Previous psychiatric stay: Yes Hopelessness: Yes Smoker: Yes Protective Factors Assessment Moravian beliefs: Yes : No Responsible for young children: No Employed: No Stable relationships: No Supportive family: Yes Good rapport with provider: No Data Vital Signs Last 24 Hrs: Date Time Temp Pulse Resp B/P (MAP) Pulse Ox O2 Delivery O2 Flow Rate FiO2 12/25/16 06:40 36.5 82 16 125/78 52 141/96 Meds Administered Last 24 Hrs: Meds Administered (Past 24Hrs) Medications (Trade) Dose Ordered Sig/Rehana Route Start Time Stop Time Status Last Admin Dose Admin Nicotine (Nicoderm Cq 21MG Patch) 1 patch STK-MED ONCE .ROUTE 12/23/16 12:58 12/23/16 12:59 DC 12/23/16 13:01 1 PATCH Paliperidone (Invega) 3 mg HS PO 12/23/16 22:00 12/24/16 09:37 DC 12/24/16 03:04 3 MG Haloperidol (Haldol Tab) 5 mg Q6H PRN PO 12/23/16 20:45 01/22/17 20:44 12/25/16 09:29 5 MG Lorazepam (Ativan Tab) 2 mg Q6H PRN PO 12/23/16 20:45 01/22/17 20:44 12/25/16 09:29 2 MG Nicotine (Nicoderm Cq 21MG Patch) 1 patch QAM TD 12/24/16 09:00 01/23/17 08:59 12/25/16 08:39 1 PATCH Miscellaneous (Remove Nicoderm Patch) 1 ea HS N/A 12/24/16 22:00 01/23/17 21:59 12/24/16 22:13 1 EA Acetaminophen (Tylenol Tab) 650 mg Q4H PRN PO 12/23/16 20:45 01/22/17 20:44 12/24/16 10:08 650 MG Sodium Chloride ([place] Nasal [place]) PRN PRN NA 12/23/16 20:45 01/22/17 20:44 12/24/16 18:00 2 SPRAYS Hydroxyzine HCl (Vistaril Tab) 50 mg HSZ PRN PO 12/23/16 20:45 01/22/17 20:44 12/23/16 22:01 50 MG Hydroxyzine HCl (Vistaril Tab) 25 mg Q4H PRN PO 12/23/16 20:45 01/22/17 20:44 12/24/16 10:38 25 MG Paliperidone (Invega) 6 mg HS PO 12/24/16 22:00 01/22/17 21:59 12/24/16 22:13 6 MG Lab Results Last 24 Hrs: 12/23/16 09:54 Red Blood Count 5.00, Mean Corpuscular Volume 84.4, Mean Corpuscular Hemoglobin 29.2, Mean Corpuscular Hemoglobin Concent 34.6, Mean Platelet Volume 9.4, Neutrophils (%) (Auto) 76.3, Lymphocytes (%) (Auto) 14.1, Monocytes (%) (Auto) 7.8, Eosinophils (%) (Auto) 1.3, Basophils (%) (Auto) 0.2, Neutrophils # (Auto) 4.77, Lymphocytes # (Auto) 0.88, Monocytes # (Auto) 0.49, Eosinophils # (Auto) 0.08, Basophils # (Auto) 0.01 12/23/16 09:54 12/24/16 08:44 Test 12/23/16 09:26 12/23/16 09:54 12/23/16 09:57 12/24/16 08:44 Urine Color DK YELLOW Urine Appearance CLOUDY (CLEAR) Urine pH 6.5 (4.5-7.5) Urine Specific Flora 1.033 (1.000-1.030) Urine Protein NEG (NEG) Urine Glucose (UA) NEG (NEG) Urine Ketones 2+ (NEG) Urine Occult Blood NEG (NEG) Urine Nitrite NEG (NEG) Urine Bilirubin NEG (NEG) Urine Urobilinogen NEG (NEG) Urine Leukocyte Esterase NEG (NEG) Urine WBC (Auto) 1-5 /hpf (0-5) Urine RBC (Auto) 0-4 /hpf (0-4) Urine Hyaline Casts (Auto) 1-5 /lpf (0-5) Urine Epithelial Cells (Auto) 10-20 /lpf (0-5) Urine Bacteria (Auto) NEG (NEG) Urine Opiates Screen NEG (NEG) Urine Methadone, Qualitative NEG (NEG) Urine Barbiturates NEG (NEG) Urine Phencyclidine (PCP) Level NEG (NEG) Ur Amphetamine/Methamphetamine NEG (NEG) MDMA (Ecstasy) Screen NEG (NEG) Urine Benzodiazepines Screen NEG (NEG) Urine Cocaine Metabolite NEG (NEG) Urine Marijuana (THC) POS (NEG) Urine Marijuana (THC Carboxy Acid) 288 NG/ML (CUTOFF=5) White Blood Count 6.25 K/uL (4.8-10.8) Red Blood Count 5.00 M/uL (4.7-6.1) Hemoglobin 14.6 g/dL (14.0-18.0) Hematocrit 42.2 % (42-52) Mean Corpuscular Volume 84.4 fL (80-100) Mean Corpuscular Hemoglobin 29.2 pg (25-34) Mean Corpuscular Hemoglobin Concent 34.6 g/dl (32-36) Platelet Count 201 K/uL (130-400) Mean Platelet Volume 9.4 fL (7.4-10.4) Neutrophils (%) (Auto) 76.3 % Lymphocytes (%) (Auto) 14.1 % Monocytes (%) (Auto) 7.8 % Eosinophils (%) (Auto) 1.3 % Basophils (%) (Auto) 0.2 % Neutrophils # (Auto) 4.77 K/uL (1.4-6.5) Lymphocytes # (Auto) 0.88 K/uL (1.2-3.4) Monocytes # (Auto) 0.49 K/uL (0.11-0.59) Eosinophils # (Auto) 0.08 K/uL (0-0.5) Basophils # (Auto) 0.01 K/uL (0-0.2) RDW Standard Deviation 39.4 fL (36.4-46.3) RDW Coefficient of Variation 13.0 % (11.5-14.5) Immature Granulocyte % (Auto) 0.3 % Immature Granulocyte # (Auto) 0.02 K/uL (0.00-0.02) Est Creatinine Clear Calc Drug Dose 129.2 ml/min Estimated GFR () 106.8 Estimated GFR (Non- 92.2 BUN/Creatinine Ratio 8.3 (10-20) Calcium Level 8.6 mg/dl (8.5-10.1) Total Bilirubin 0.6 mg/dl (0.2-1) Direct Bilirubin 0.2 mg/dl (0-0.2) Aspartate Amino Transf (AST/SGOT) 31 U/L (15-37) Alanine Aminotransferase (ALT/SGPT) 39 U/L (12-78) Alkaline Phosphatase 74 U/L (45-117) Total Protein 6.4 gm/dl (6.4-8.2) Albumin 3.5 gm/dl (3.4-5.0) Globulin 2.9 gm/dl (2.5-4.0) Albumin/Globulin Ratio 1.2 (0.9-2) Thyroid Stimulating Hormone (TSH) 1.480 uIu/ml (0.300-4.500) Ethyl Alcohol mg/dL < 3.0 mg/dl (0-3) Bedside Glucose 167 mg/dl (70-99) Anion Gap 0.0 mmol/L (3-11) Problem Qualifiers (1) Obesity: Obesity type: unspecified obesity type Obesity classification: adult class 1 (BMI 30 ? 34.9) Body mass index: BMI 32.0-32.9
[2016-12-25] MEDS: PALIPERIDONE 3 MG TABCR PO SCH (21:12)
[2016-12-26 06:46] VITALS: BP_SYST 122; BP_SYST 131; BP_DIAS 79; BP_DIAS 88; PULSE 65; PULSE 93; TEMP 36.5
[2016-12-26] MEDS: NICOTINE 21 MG/24 HR TDSY TD SCH (08:32)
--- NOTE | 2016-12-26 10:00 | Psychiatric Progress Notes ---
Progress Note Date of Service Dec 26, 2016. Interval History 6-year-old single white male with schizoaffective disorder bipolar type, history of noncompliance with treatment, and polysubstance abuse who presents with psychosis, depression, and suicidal thoughts with multiple plans. He is admitted voluntarily. He is on an outpatient 304 commitment, but indicates that he has not been taking his psychotropic medications since discharge from the hospital last month. It is not clear what happened with his long-acting injectable that he was started on here in November, as he was due for his maintenance shot on 12/04/2016, but states he did not get it. We will need to coordinate with his outpatient providers to determine what is happened since his discharge, and for now have resumed oral Invega for his schizoaffective disorder. Chief Complaint "It's just the stuff with this girl, throwing me for a loop". Subjective Patient was seen & assessed interval progress reviewed with Nursing. Staff report he was excused from most of the groups yesterday due to the severity of his symptoms, reported anxiety, and was frequently pacing. His mother came for a visit from [place], and stated that his Invega Sustenna injection was due 12/19/2016, and that he went to the appointment, but [facility] did not have the medication available. She also shared information about his multiple previous hospitalizations, including a year long hospitalization at the [facility] in [place], as well as incarcerations. He has received multiple Haldol and Ativan when necessary's daily, and is taking the paliperidone as scheduled. He submitted a 72 hour notice requesting to withdraw from treatment, and a 306 conversion hearing has been scheduled for tomorrow, as he is on a 304 outpatient commitment. Today he was seen with Torres Koroma, MS3. He states that he has been very upset about his relationship, stating that he and his girlfriend, whom he met on the psych unit last month, were doing well until he went to stay with her in [place] earlier this month after he was discharged from the [facility], she had an episode where she was suicidal and wanted to run in front of traffic, so he called police, but says nothing was done. He says he hasn't talked to her since then, but later states that she comes and stays with him at his apartment in [place] sometimes, and he stays with her other times. He talks about them going "out to the club," where he was drinking and smoking marijuana. He says "both of us have issues, spiritually and psychologically." He doesn't feel he needs to be here, and says that he just wants to get his Invega Sustenna and leave. He is upset that his outpatient providers were able to give him the shot as scheduled last week. He says his mood is "fine, I'm a little bit claustrophobic, hard time just breathing, hard time gathering my thoughts together, just how my family is, have a hard time getting all the pieces together." His suicidal thoughts have improved, and he says "for some reason I was thinking, I was putting the blade on me, to see how she would feel." He admits that he made statements about getting a lethal injection, and said that he was feeling "I just want to be done with the situation." His primary stress is "losing my girl, and emotional trauma or drama or stress." He says the visit with his mother was not good, stating "it never goes good, I don't really enjoy seeing her anymore." He says he has not talked to his father. He was informed of the 306 hearing scheduled for tomorrow, and was upset about this, but understanding that it was required because of his outpatient commitment. Shortly afterwards, he approached this physician in the hallway, stating that he was not feeling well, was seen "all kinds of stuff, dragons and stuff," and did not feel safe. He said he wanted to go somewhere safe, and was assisted to the safe room. He had already received Haldol 5 mg and Ativan 2 mg when necessary. He then told staff that he was feeling agitated and angry, with thoughts to punch someone or something. He was throwing a stress ball and kicking stauffer in the safe room, so was placed on a medically necessary private room. Sleep Information Total Hours of Sleep: 6.00 Meal Information Percent of Breakfast Consumed: 100 Percent of Lunch Consumed: 100 Percent of Dinner Consumed: 100 Mental Status Exam During interview pt is: cooperative (but a limited historian due to psychosis and disorganization), other (alert and oriented to self and place) Appearance: appropriately dressed, other (dressed in shorts and a T-shirt, head is shaved, overweight) Eye contact is: fair Motor behavior is: steady gait & station, psychomotor agitation Speech: normal in rate, rhythm & volume Affect: irritable, anxious, other (distraught, incongruent with stated mood) Mood is: other ("fine, I'm a little bit claustrophobic...") Thought process: looseness of associations (at times answers with unrelated information, other times is goal directed, but answers are vague) Thought content: reality based without delusions, other (gives conflicting reports, and struggles to answer some questions) Suicidal thought are: denied Homicidal thoughts are: present (urges to hit someone or something) Hallucinations: visual (seen lights and dragons), denies auditory Cognition: other (memory and attention are impaired by psychosis) Intelligence estimated to be: consistent with level of education Insight: severely impaired Judgement: severely impaired Summary of Past History Records from [facility] reviewed: Patient was seen by Dr. Chan on 12/19/2016. He had been hospitalized at the [facility] from 11/27/2016 through 12/05/2016. He was supposed to be referred to [facility] for therapy, but was not yet scheduled with her. His case management coordinator Darlyn went to the appointment with him. He was due for his Sustenna shot, which the notes indicate he had gotten on 11/18/2016 ( although when he left this facility, his next shot was not due until 12/04/2016) . He was unable to get the shot at his appointment as they had not yet received the medication. He was angry, argumentative, and agitated in the appointment, stating that he didn't want treatment, didn't want medications, and was threatening to lacey the doctor. Brady Lind is on an outpatient involuntary commitment, and we have scheduled a 306 conversion hearing for tomorrow. He was due for his Sustenna injection 2016, and went to his appointment, but did not receive it as the facility had not obtained the medication in time. We will give his injection today and increase the dose 256 mg, as the 117 mg has not been sufficient and he's had 2 hospitalizations since the medication was started. We finally received records from [facility], but still have not received records from the [facility]. He is slightly more organized, but still psychotic, agitated, and easily overwhelmed. He is taking his medications here, and asking for prn's, but medication compliance as an OP remains a concern. We will continue to gather information toward the need for further inpatient treatment. We will need to involve his case management coordinator in discharge planning, especially given the difficulties they had in obtaining his medication. Plan (1) Schizoaffective disorder - Increase oral Invega to 6 mg qhs, and determine when patient got his last Sustenna shot. - Fasting lipid profile and glucose performed 10/31/2016. Cholesterol levels were normal, and glucose was elevated at 101. - Haldol 5mg po/im and lorazepam 2mg po/im prn psychosis/agitation. Benztropine 1mg prn EPS. Hydroxyzine prn anxiety/insomnia. - Get records from recent [facility] hospitalization and Dr. Chan at [facility], and coordinate care with case management coordinator. 12/25 - Continue Invega 6 mg HS - Await records from [place] and Dr. Chan to determine date of last Sustenna injection. 12/26 - Records from [facility] reviewed, the patient was due for his shot on 12/19/2016 , but did not receive it as they had not obtained it in time. - Given Invega Sustenna 156 mg dose today. He requires a higher dose due to ongoing symptoms and to hospitalizations since being started on the shot.. - Have asked staff to contact the [facility] and requested that records be sent as soon as possible. - 306 conversion hearing scheduled for tomorrow, as patient is on an involuntary outpatient 304 commitment. Paperwork will then need to be submitted to [facility] prior to discharge to convert back to outpatient involuntary commitment status. - Patient will need a meeting with his case management coordinator prior to discharge, and will need to be referred for therapy with Tana at [facility], which still has not been set up. - Patient is agitated today, feels unsafe, and has urges to kick and punch people and things, so will place him in a private room. - Continue Haldol 5 mg and Ativan 2 mg as needed for psychosis. Consider increasing the Haldol to 10 mg. (2) Suicidal ideation Q 15 min checks for safety. Encourage group participation and programming. Work on coping skills and safety plan. (3) Cannabis abuse The patient has been educated about the risks of ongoing cannabis abuse, and the recommendations for abstinence. He indicates that he would like to abstain from substance abuse. He may benefit from substance abuse treatment, as this is a chronic problem. (4) Alcohol abuse The patient indicates he has been binge drinking. He has been educated about the risks of alcohol use and the recommendations for abstinence. We will explore options for substance abuse treatment. (5) Hypertension Blood pressure was initially high, but this morning is within the normal range; continue to monitor. (6) Obesity Significant weight gain in the past 2 months, and is obese with a BMI of 32.291. Encouraged healthy food choices, daily exercise, and weight loss. (7) Nicotine abuse Offer nicotine patch and or gum for cravings while here, and educate the patient about the risks of nicotine abuse and recommendations for smoking cessation. Discharge / Aftercare Planning Primary Care Physician: Name: Dr Mullins Appointment Notes: As needed Psychiatrist: Name: Dr Romeo Therapist: Name: [facility] intake will be scheduled Head Host/Hostess: Name: Darlyn Rodriguez Visit Code E&M Code: 48255 Inventory Assets Strengths: Has housing, supportive parents, is on an outpatient involuntary commitment. Risk Factors Assessment Male: Yes : Yes /single/: Yes Higher / Fall in social status: No Health problems: No Mental Health Diagnoses: Yes Substance use disorders: Yes Previous attempt: Yes Family history of suicide: No Previous psychiatric stay: Yes Hopelessness: Yes Smoker: Yes Protective Factors Assessment Sikhism beliefs: Yes : No Responsible for young children: No Employed: No Stable relationships: No Supportive family: Yes Good rapport with provider: No Data Vital Signs Last 24 Hrs: Date Time Temp Pulse Resp B/P (MAP) Pulse Ox O2 Delivery O2 Flow Rate FiO2 12/26/16 06:46 36.5 65 17 131/79 93 122/88 Meds Administered Last 24 Hrs: Meds Administered (Past 24Hrs) Medications (Trade) Dose Ordered Sig/Rehana Route Start Time Stop Time Status Last Admin Dose Admin Miscellaneous (Remove Nicoderm Patch) 1 ea HS N/A 12/24/16 22:00 01/23/17 21:59 12/24/16 22:13 1 EA Paliperidone (Invega) 6 mg HS PO 12/24/16 22:00 01/22/17 21:59 12/25/16 21:12 6 MG Problem Qualifiers (1) Obesity: Obesity type: unspecified obesity type Obesity classification: adult class 1 (BMI 30 ? 34.9) Body mass index: BMI 32.0-32.9
[2016-12-26 10:16] VITALS: BP 149/95; PULSE 105
[2016-12-26] MEDS: HALOPERIDOL 5 MG TAB PO PRN ×2 (10:18→17:39)
[2016-12-26] MEDS: LORAZEPAM 2 MG TAB PO PRN ×2 (10:18→17:39)
[2016-12-26] MEDS: BENZTROPINE MESYLATE 1 MG TAB PO PRN ×2 (10:26→17:39)
[2016-12-26] MEDS ORDERED: INVEGA SUSTENNA 156 MG/ML 1 ML SYR IM ONE (11:00)
[2016-12-26] MEDS: hydrOXYzine HCL 25 MG TAB PO PRN (16:00)
[2016-12-26] MEDS: PALIPERIDONE 3 MG TABCR PO SCH (20:16)
--- NOTE | 2016-12-26 22:45 | Medical Student: BHU Only ---
Psychiatric Progress Note Date of Service: Dec 26, 2016. SUBJECTIVE: The patient was seen and assessed today, and progress was reviewed with nursing. Diogo hasn't attended many group sessions during his stay, and did not attend any yesterday. He isolates himself in his room, has been sleeping and napping frequently, and because of this, is in his room while other patients are out socializing. He has received Ativan PRN several times for anxiety. Patient's mother, Lisa Ovalle came in from [place] to visit Diogo, and we received some additional info about the patient's recent psychiatric, medical, and criminal history. He was hospitalized at [facility] for a year from 2014-2015. Mother also stated that Diogo spent 9 months in fdc at [facility] for breaking and entering and theft. She said that after this he spent 5 months in [facility] for mental health. She is staying in [place] until December 30. The patient reports doing "good" this morning. Sleep was "good"; noted to be for 6 hours by staff. This morning I saw him with Dr. Kapoor. He states that his main source of stress has been from the girl he has been involved with. He was able to elaborate more on this situation, much more than the first day we spoke with him. He states that she was dancing with other men when going out to the club, and there was the episode where she was threatening to commit suicide by jumping in front of a car. In fact, he further explained his earlier comments about running knives along his arms, doing it "to see how she would feel." He claims that his earlier statements about wanted to receive lethal injection was not meant to be taken as a desire to commit suicide, but rather an explanation for "just wanting to be done with the situation." He admits to having a "psychological issue," and knows that he hasn't been on medication that he needs to take. However, he doesn't feel he needs to be here , and says that he just wants to get his Invega Sustenna and leave. He says his mood is "claustrophobic, hard time just breathing, hard time gathering my thoughts together, just how my family is, have a hard time getting all the pieces together." His visit with his mother was not good, stating "it never goes good, I don't really enjoy seeing her anymore." He was informed of the 306 hearing scheduled for tomorrow, was upset about this, but understood that it was required by law as part of his 306 commitment. ROS: as per HPI MSE: Appearance is that of a casually dressed male who appears his stated age. The patient is cooperative with the interview. He was much more talkative this time around. He was able to give answers several sentences long, when before I was gertrude to get 5 words at a time. Eye contact is good Motor behavior is normal Speech: normal in rate rhythm and volume Thought process: at times would be goal directed but vague, other times losseness of associations Thought content: without delusion, denies suicidal and homicidal ideations, but still had difficulty answering some questions Perception: denies hallucinations Cognition: oriented to person and place, impaired Insight is estimated to be impaired Judgment is estimated to be impaired ASSESSMENT: Diogo Hernández is a 26-year-old single white male with schizoaffective disorder bipolar type, history of noncompliance with treatment, and polysubstance abuse who presents with psychosis, depression, and suicidal thoughts with multiple plans. He is admitted voluntarily. He is on an outpatient 304 commitment, and has a 306 conversion hearing tomorrow 12/27/2016. While he has become easier to illicit information from since our first conversation, Diogo is still avoidant of his peers and experiences symptoms of anxiety multiple times per day. It has been difficult to this point acquiring his medical records from [facility] and the [facility], but we plan to give his injection of Invega Sustenna today and increase the dose 256 mg, as the 117 mg has not been sufficient and he's had 2 hospitalizations since the medication was started. PLAN: 1. Schizoaffective Disorder: Chronic, active -Invega 6mg PO daily -Received Sustenna injection 156 mg 12/26/2016 -Haldol 5mg PO/IM, lorazepam 2mg PO/IM PRN for psychosis and agitation -306 conversion hearing scheduled for tomorrow, as patient is on an involuntary outpatient 304 commitment. 2. Suicidal Ideation: denies currently -Q 15 min checks for safety. -Encourage group participation and programming. -Work on coping skills and safety plan. 3. Cannabis Abuse: chronic, active -He has been educated about the risks of ongoing abuse, he indicates he would like to abstain. Continue to [facility] and recommend substance abuse treatment. 4. Alcohol Abuse: chronic, active -Patient Reports binge drinking, he has been educated about the risks of ongoing abuse. He indicates he would like to abstain. Continue to [facility] and recommend substance abuse treatment. 5. Hypertension: resolved, stable -High in ED -Continue to monitor 6. Obesity: BMI 32.291 -Encourage healthy food choices, exercise, and weight loss. He enjoy playing basketball, continue to encourage physical activity 7. Nicotine Abuse: chronic, active -Offer nicotine patch and gum during admission, states that he smoked 1 pack per day. He was educated about the risks of smoking and nicotine abuse and recommendations for abstinence.
[2016-12-27 06:53] VITALS: BP 121/81; PULSE 50; TEMP 36.5
[2016-12-27] MEDS: NICOTINE 21 MG/24 HR TDSY TD SCH (08:14)
[2016-12-27] MEDS: hydrOXYzine HCL 25 MG TAB PO PRN ×3 (08:25→23:11)
[2016-12-27] MEDS ORDERED: TRIHEXYPHENIDYL HCL 2 MG TAB PO PRN (08:30)
--- NOTE | 2016-12-27 11:03 | Psychiatric Progress Notes ---
Progress Note Date of Service Dec 27, 2016. Interval History 26-year-old single white male with schizoaffective disorder bipolar type, history of noncompliance with treatment, and polysubstance abuse who presents with psychosis, depression, and suicidal thoughts with multiple plans. He was initially admitted voluntarily but is also on an outpatient 304 commitment. He has not been taking his psychotropic medications since discharge from the hospital last month. It iinitially was not clear what happened with his long- acting injectable that he was started on here in November, as he was due for his maintenance shot on 12/04/2016, but states he did not get it. We resumed oral Invega for his schizoaffective disorder. Chief Complaint "I spiritual and can see things before they happen". Subjective Patient was seen & assessed interval progress reviewed with Treatment Team. He maintains that he was frustrated and didn't really want to harm himself and says he shouldn't have asked for a lethal injection. He has been pacing in the hallways with restless legs, less of an issue this am but his speech is more pressured in preparation for the conversion hearing. He received prns of Haldol , Ativan, Vistaril yesterday and states he was hearing god's voice and has also seen demons. Review of Systems Psych: denies symptoms other than stated above Constitutional: denied Cardiovascular: denied GI: denied Neurologic: denied Remainder of 10 body systems also reviewed and denied other than noted above. Sleep Information Total Hours of Sleep: 7.00 Meal Information Percent of Breakfast Consumed: 100 Percent of Lunch Consumed: 75 Percent of Dinner Consumed: 100 Mental Status Exam During interview pt is: cooperative (until discussed length of stay) Appearance: appropriately dressed, other (dressed in shorts and a T-shirt, head is shaved, overweight) Eye contact is: fair Motor behavior is: steady gait & station, psychomotor agitation Speech: is pressured Affect: irritable, constricted Mood is: irritable Thought process: circumstantial, tangential Thought content: delusions (grandeur re: his spiritual knowledge and free style rapping abilities), ideas of reference Suicidal thought are: denied Homicidal thoughts are: denied Hallucinations: denies auditory, denies visual Cognition: other (memory and attention are impaired by psychosis) Intelligence estimated to be: consistent with level of education Insight: severely impaired Judgement: severely impaired Summary of Past History Records from [facility] previously reviewed by treatment team: Patient was seen by Dr. Chan on 12/19/2016. He had been hospitalized at the [facility] from 11/27/2016 through 12/05/2016. He was supposed to be referred to [place] for therapy, but was not yet scheduled with her. His manager rn case Darlyn went to the appointment with him. He was due for his Sustenna shot, which the notes indicate he had gotten on 11/18/2016 (although when he left this facility, his next shot was not due until 12/04/2016). He was unable to get the shot at his appointment as they had not yet received the medication. He was angry, argumentative, and agitated in the appointment, stating that he didn't want treatment, didn't want medications, and was threatening to lacey the doctor. Impression He was due for his Sustenna injection 12/19/2016, and went to his appointment, but did not receive it as the facility had not obtained the medication in time. His injection was given 12/27/16 and increase the dose 256 mg, as the 117 mg has not been sufficient and he's had 2 hospitalizations since the medication was started. He is slightly more organized, but still psychotic, agitated, and easily overwhelmed. He is taking his medications here, and asking for prn's, but medication compliance as an OP remains a concern. Plan (1) Schizoaffective disorder - Increase oral Invega to 6 mg qhs, and determine when patient got his last Sustenna shot. - Fasting lipid profile and glucose performed 10/31/2016. Cholesterol levels were normal, and glucose was elevated at 101. - Haldol 5mg po/im and lorazepam 2mg po/im prn psychosis/agitation. Benztropine 1mg prn EPS. Hydroxyzine prn anxiety/insomnia. - Get records from recent [facility] hospitalization and Dr. Chan at [facility], and coordinate care with manager rn case. 12/25 - Continue Invega 6 mg HS - Await records from [place] and Dr. Chan to determine date of last Sustenna injection. 12/26 - Records from [facility] reviewed, the patient was due for his shot on 12/19/2016 , but did not receive it as they had not obtained it in time. - Given Invega Sustenna 156 mg dose today. He requires a higher dose due to ongoing symptoms and to hospitalizations since being started on the shot.. - Have asked staff to contact the [facility] and requested that records be sent as soon as possible. - 306 conversion hearing scheduled for tomorrow, as patient is on an involuntary outpatient 304 commitment. Paperwork will then need to be submitted to [facility] prior to discharge to convert back to outpatient involuntary commitment status. - Patient will need a meeting with his manager rn case prior to discharge, and will need to be referred for therapy with Tana at [facility], which still has not been set up. - Patient is agitated today, feels unsafe, and has urges to kick and punch people and things, so will place him in a private room. - Continue Haldol 5 mg and Ativan 2 mg as needed for psychosis. Consider increasing the Haldol to 10 mg. 12/27 --recommended a retrial of Depakote for irritability/aggression as presents as somewhat manic. Patient is refusing at this time. 306 granted so 304 converted to inpatient and will need to reconvert remaining time to outpatient at discharge. (2) Suicidal ideation Q 15 min checks for safety. Encourage group participation and programming. Work on coping skills and safety plan. (3) Cannabis abuse The patient has been educated about the risks of ongoing cannabis abuse, and the recommendations for abstinence. He indicates that he would like to abstain from substance abuse. He may benefit from substance abuse treatment, as this is a chronic problem. (4) Alcohol abuse The patient indicates he has been binge drinking. He has been educated about the risks of alcohol use and the recommendations for abstinence. We will explore options for substance abuse treatment. (5) Hypertension Blood pressure was initially high, but this morning is within the normal range; continue to monitor. (6) Obesity Significant weight gain in the past 2 months, and is obese with a BMI of 32.291. Encouraged healthy food choices, daily exercise, and weight loss. (7) Nicotine abuse Offer nicotine patch and or gum for cravings while here, and educate the patient about the risks of nicotine abuse and recommendations for smoking cessation. Discharge / Aftercare Planning Primary Care Physician: Name: Dr Mullins Appointment Notes: As needed Psychiatrist: Name: Dr Romeo Date of Appointment: Jan 13, 2017 Time of Appointment: 10:00am Therapist: Name: [facility] ZoeKarl Monsivais Date of Appointment: Jan 14, 2017 Time of Appointment: 9:00am Gun Club Manager: Name: Darlyn Rodriguez Inventory Assets Strengths: Has housing, supportive parents, is on an outpatient involuntary commitment. Risk Factors Assessment Male: Yes : Yes /single/: Yes Higher / Fall in social status: No Health problems: No Mental Health Diagnoses: Yes Substance use disorders: Yes Previous attempt: Yes Family history of suicide: No Previous psychiatric stay: Yes Hopelessness: Yes Smoker: Yes Protective Factors Assessment Confucianist beliefs: Yes : No Responsible for young children: No Employed: No Stable relationships: No Supportive family: Yes Good rapport with provider: No Data Vital Signs Last 24 Hrs: Date Time Temp Pulse Resp B/P (MAP) Pulse Ox O2 Delivery O2 Flow Rate FiO2 12/27/16 06:53 36.5 50 16 121/81 Meds Administered Last 24 Hrs: Meds Administered (Past 24Hrs) Medications (Trade) Dose Ordered Sig/Rehana Route Start Time Stop Time Status Last Admin Dose Admin Paliperidone Palmitate (Invega Sustenna) 156 mg TODAY@1100 ONCE IM 12/26/16 11:00 12/26/16 11:01 DC 12/26/16 10:51 156 MG Problem Qualifiers (1) Obesity: Obesity type: unspecified obesity type Obesity classification: adult class 1 (BMI 30 ? 34.9) Body mass index: BMI 32.0-32.9
[2016-12-27] MEDS ORDERED: NURSING VERBAL MED ORDER ONE (13:00)
[2016-12-27] MEDS: COUGH DROP (SUGAR FREE) LOZ 24 LOZ/1 BOX PO PRN (13:35)
[2016-12-27] MEDS: LORAZEPAM 2 MG TAB PO PRN (20:01)
[2016-12-27] MEDS: PALIPERIDONE 3 MG TABCR PO SCH (21:11)
[2016-12-27] MEDS: BENZTROPINE MESYLATE 1 MG TAB PO PRN (22:56)
[2016-12-28 06:46] VITALS: BP_SYST 116; BP_SYST 149; BP_DIAS 78; BP_DIAS 85; PULSE 64; PULSE 74; TEMP 36.7
[2016-12-28] MEDS: NICOTINE 21 MG/24 HR TDSY TD SCH (11:09)
[2016-12-28] MEDS: COUGH DROP (SUGAR FREE) LOZ 24 LOZ/1 BOX PO PRN ×2 (13:05→14:32)
--- NOTE | 2016-12-28 13:10 | Psychiatric Progress Notes ---
Progress Note Date of Service Dec 28, 2016. Interval History 26-year-old single white male with schizoaffective disorder bipolar type, history of noncompliance with treatment, and polysubstance abuse who presents with psychosis, depression, and suicidal thoughts with multiple plans. He was initially admitted voluntarily but is also on an outpatient 304 commitment. He has not been taking his psychotropic medications since discharge from the hospital last month. It iinitially was not clear what happened with his long- acting injectable that he was started on here in November, as he was due for his maintenance shot on 12/04/2016, but states he did not get it. We resumed oral Invega for his schizoaffective disorder. Chief Complaint "I don't need to be here. I just needed my shot and I got it". Subjective Patient was seen & assessed interval progress reviewed with Nursing.Patient feels angered and frustrated with approval of 304 involuntary petition. He does not feel that he needs to be here. He has remained agitated and struggled to get to sleep last night and needed PRN dose of Vistaril to calm and today observed to remain agitated during interview and has been pacing around unit. Discussed with patient consideration of adding Depakote or other alternatives for additional mood stabilization and patient is resistant to taking additional medication. Review of Systems Psych: denies symptoms other than stated above Constitutional: denied Cardiovascular: denied GI: denied Neurologic: denied Remainder of 10 body systems also reviewed and denied other than noted above. Sleep Information Total Hours of Sleep: 6.50 Meal Information Percent of Breakfast Consumed: 100 Percent of Lunch Consumed: 100 Percent of Dinner Consumed: 100 Mental Status Exam During interview pt is: cooperative (until discussed length of stay) Appearance: appropriately dressed, other (dressed in shorts and a T-shirt, head is shaved, overweight) Eye contact is: fair Motor behavior is: steady gait & station, psychomotor agitation Speech: is pressured Affect: irritable, constricted Mood is: irritable Thought process: circumstantial, tangential Thought content: delusions (grandeur re: his spiritual knowledge and free style rapping abilities), ideas of reference Suicidal thought are: denied Homicidal thoughts are: denied Hallucinations: denies auditory, denies visual Cognition: other (memory and attention are impaired by psychosis) Intelligence estimated to be: consistent with level of education Insight: severely impaired Judgement: severely impaired Summary of Past History Records from [facility] previously reviewed by treatment team: Patient was seen by Dr. Chan on 12/19/2016. He had been hospitalized at the [facility] from 11/27/2016 through 12/05/2016. He was supposed to be referred to [place] for therapy, but was not yet scheduled with her. His patient case coordinator Darlyn went to the appointment with him. He was due for his Sustenna shot, which the notes indicate he had gotten on 11/18/2016 (although when he left this facility, his next shot was not due until 12/04/2016). He was unable to get the shot at his appointment as they had not yet received the medication. He was angry, argumentative, and agitated in the appointment, stating that he didn't want treatment, didn't want medications, and was threatening to lacey the doctor. Impression He was due for his Sustenna injection 12/19/2016, and went to his appointment, but did not receive it as the facility had not obtained the medication in time. His injection was given 12/27/16 and increase the dose 256 mg, as the 117 mg has not been sufficient and he's had 2 hospitalizations since the medication was started. He is slightly more organized, but still psychotic, agitated, and easily overwhelmed. He is taking his medications here, and asking for prn's, but medication compliance as an OP remains a concern. Plan (1) Schizoaffective disorder - Increase oral Invega to 6 mg qhs, and determine when patient got his last Sustenna shot. - Fasting lipid profile and glucose performed 10/31/2016. Cholesterol levels were normal, and glucose was elevated at 101. - Haldol 5mg po/im and lorazepam 2mg po/im prn psychosis/agitation. Benztropine 1mg prn EPS. Hydroxyzine prn anxiety/insomnia. - Get records from recent [facility] hospitalization and Dr. Chan at [facility], and coordinate care with patient case coordinator. 12/25 - Continue Invega 6 mg HS - Await records from [place] and Dr. Chan to determine date of last Sustenna injection. 12/26 - Records from [facility] reviewed, the patient was due for his shot on 12/19/2016 , but did not receive it as they had not obtained it in time. - Given Invega Sustenna 156 mg dose today. He requires a higher dose due to ongoing symptoms and to hospitalizations since being started on the shot.. - Have asked staff to contact the [facility] and requested that records be sent as soon as possible. - 306 conversion hearing scheduled for tomorrow, as patient is on an involuntary outpatient 304 commitment. Paperwork will then need to be submitted to [facility] prior to discharge to convert back to outpatient involuntary commitment status. - Patient will need a meeting with his patient case coordinator prior to discharge, and will need to be referred for therapy with Tana at [facility], which still has not been set up. - Patient is agitated today, feels unsafe, and has urges to kick and punch people and things, so will place him in a private room. - Continue Haldol 5 mg and Ativan 2 mg as needed for psychosis. Consider increasing the Haldol to 10 mg. 12/27 --recommended a retrial of Depakote for irritability/aggression as presents as somewhat manic. Patient is refusing at this time. 306 granted so 304 converted to inpatient and will need to reconvert remaining time to outpatient at discharge. 12/28 -reviewed with patient consideration of Depakote or other additional mood stabilizers and he declined to consider at this time. (2) Suicidal ideation Q 15 min checks for safety. Encourage group participation and programming. Work on coping skills and safety plan. (3) Cannabis abuse The patient has been educated about the risks of ongoing cannabis abuse, and the recommendations for abstinence. He indicates that he would like to abstain from substance abuse. He may benefit from substance abuse treatment, as this is a chronic problem. (4) Alcohol abuse The patient indicates he has been binge drinking. He has been educated about the risks of alcohol use and the recommendations for abstinence. We will explore options for substance abuse treatment. (5) Hypertension Blood pressure was initially high, but this morning is within the normal range; continue to monitor. (6) Obesity Significant weight gain in the past 2 months, and is obese with a BMI of 32.291. Encouraged healthy food choices, daily exercise, and weight loss. (7) Nicotine abuse Offer nicotine patch and or gum for cravings while here, and educate the patient about the risks of nicotine abuse and recommendations for smoking cessation. Discharge / Aftercare Planning Primary Care Physician: Name: Dr Mullins Appointment Notes: As needed Psychiatrist: Name: Dr Romeo Date of Appointment: Jan 13, 2017 Time of Appointment: 10:00am Therapist: Name: VALENCIA Monsivais Date of Appointment: Jan 14, 2017 Time of Appointment: 9:00am Pipe Organ Installer: Name: Darlyn Rodriguez Visit Code E&M Code: 61196 Inventory Assets Strengths: Has housing, supportive parents, is on an outpatient involuntary commitment. Risk Factors Assessment Male: Yes : Yes /single/: Yes Higher / Fall in social status: No Health problems: No Mental Health Diagnoses: Yes Substance use disorders: Yes Previous attempt: Yes Family history of suicide: No Previous psychiatric stay: Yes Hopelessness: Yes Smoker: Yes Protective Factors Assessment Hinduism beliefs: Yes : No Responsible for young children: No Employed: No Stable relationships: No Supportive family: Yes Good rapport with provider: No Data Vital Signs Last 24 Hrs: Date Time Temp Pulse Resp B/P (MAP) Pulse Ox O2 Delivery O2 Flow Rate FiO2 12/28/16 06:46 36.7 64 18 149/85 74 116/78 Meds Administered Last 24 Hrs: Meds Administered (Past 24Hrs) Medications (Trade) Dose Ordered Sig/Rehana Route Start Time Stop Time Status Last Admin Dose Admin Trihexyphenidyl HCl (Artane Tab) 2 mg Q4H PRN PO 12/27/16 08:30 01/26/17 08:29 12/27/16 17:04 2 MG Menthol (Nice Ramila) 1 ramila Q2H PRN PO 12/27/16 13:45 01/26/17 13:44 12/27/16 13:35 1 RAMILA Problem Qualifiers (1) Obesity: Obesity type: unspecified obesity type Obesity classification: adult class 1 (BMI 30 ? 34.9) Body mass index: BMI 32.0-32.9
[2016-12-28] MEDS: BENZTROPINE MESYLATE 1 MG TAB PO PRN (18:49)
[2016-12-28] MEDS: LORAZEPAM 2 MG TAB PO PRN (19:09)
[2016-12-28] MEDS: PALIPERIDONE 3 MG TABCR PO SCH (21:04)
[2016-12-28] MEDS: hydrOXYzine HCL 25 MG TAB PO PRN (21:04)
[2016-12-29 06:57] VITALS: BP_SYST 131; BP_SYST 135; BP_DIAS 83; BP_DIAS 85; PULSE 64; PULSE 73; TEMP 36.5
[2016-12-29] MEDS: NICOTINE 21 MG/24 HR TDSY TD SCH (09:00)
[2016-12-29] MEDS: LORAZEPAM 2 MG TAB PO PRN (09:13)
[2016-12-29] MEDS: COUGH DROP (SUGAR FREE) LOZ 24 LOZ/1 BOX PO PRN (12:35)
--- NOTE | 2016-12-29 14:44 | Psychiatric Progress Notes ---
Progress Note Date of Service Dec 29, 2016. Interval History 26-year-old single white male with schizoaffective disorder bipolar type, history of noncompliance with treatment, and polysubstance abuse who presents with psychosis, depression, and suicidal thoughts with multiple plans. He was initially admitted voluntarily but is also on an outpatient 304 commitment. He has not been taking his psychotropic medications since discharge from the hospital last month. It iinitially was not clear what happened with his long- acting injectable that he was started on here in November, as he was due for his maintenance shot on 12/04/2016, but states he did not get it. We resumed oral Invega for his schizoaffective disorder. Chief Complaint "I don't need more medication, I just need out of here to get back to work". Subjective Patient was seen & assessed interval progress reviewed with Nursing. Patient declined ADHD rating scale. Had a visit from both mother and father and he tolerated these well. Not able to tolerate remaining in groups long. Reviewed consideration of taking Depakote with patient and he expresses concern with having been on this medication in the past and claims that his weight went from 180lbs to 280lbs. Review of Systems Psych: denies symptoms other than stated above Constitutional: denied Cardiovascular: denied GI: denied Neurologic: denied Remainder of 10 body systems also reviewed and denied other than noted above. Sleep Information Total Hours of Sleep: 8.25 Meal Information Percent of Breakfast Consumed: 100 Percent of Lunch Consumed: 100 Percent of Dinner Consumed: 100 Mental Status Exam During interview pt is: cooperative (until discussed length of stay) Appearance: appropriately dressed, other (dressed in shorts and a T-shirt, head is shaved, overweight) Eye contact is: fair Motor behavior is: steady gait & station, psychomotor agitation Speech: is pressured Affect: irritable, constricted Mood is: irritable Thought process: circumstantial, tangential Thought content: delusions (grandeur re: his spiritual knowledge and free style rapping abilities), ideas of reference Suicidal thought are: denied Homicidal thoughts are: denied Hallucinations: denies auditory, denies visual Cognition: other (memory and attention are impaired by psychosis) Intelligence estimated to be: consistent with level of education Insight: severely impaired Judgement: severely impaired Summary of Past History Records from [facility] previously reviewed by treatment team: Patient was seen by Dr. Chan on 12/19/2016. He had been hospitalized at the [facility] from 11/27/2016 through 12/05/2016. He was supposed to be referred to Tana for therapy, but was not yet scheduled with her. His pillowcase sewer Darlyn went to the appointment with him. He was due for his Sustenna shot, which the notes indicate he had gotten on 11/18/2016 (although when he left this facility, his next shot was not due until 12/04/2016). He was unable to get the shot at his appointment as they had not yet received the medication. He was angry, argumentative, and agitated in the appointment, stating that he didn't want treatment, didn't want medications, and was threatening to lacey the doctor. Impression He was due for his Sustenna injection 12/19/2016, and went to his appointment, but did not receive it as the facility had not obtained the medication in time. His injection was given 12/27/16 and increase the dose 256 mg, as the 117 mg has not been sufficient and he's had 2 hospitalizations since the medication was started. He is slightly more organized, but still psychotic, agitated, and easily overwhelmed. He is taking his medications here, and asking for prn's, but medication compliance as an OP remains a concern. Plan (1) Schizoaffective disorder - Increase oral Invega to 6 mg qhs, and determine when patient got his last Sustenna shot. - Fasting lipid profile and glucose performed 10/31/2016. Cholesterol levels were normal, and glucose was elevated at 101. - Haldol 5mg po/im and lorazepam 2mg po/im prn psychosis/agitation. Benztropine 1mg prn EPS. Hydroxyzine prn anxiety/insomnia. - Get records from recent [facility] hospitalization and Dr. Chan at [facility], and coordinate care with pillowcase sewer. 12/25 - Continue Invega 6 mg HS - Await records from [place] and Dr. Chan to determine date of last Sustenna injection. 12/26 - Records from [facility] reviewed, the patient was due for his shot on 12/19/2016 , but did not receive it as they had not obtained it in time. - Given Invega Sustenna 156 mg dose today. He requires a higher dose due to ongoing symptoms and to hospitalizations since being started on the shot.. - Have asked staff to contact the [facility] and requested that records be sent as soon as possible. - 306 conversion hearing scheduled for tomorrow, as patient is on an involuntary outpatient 304 commitment. Paperwork will then need to be submitted to [facility] prior to discharge to convert back to outpatient involuntary commitment status. - Patient will need a meeting with his pillowcase sewer prior to discharge, and will need to be referred for therapy with Tana at [facility], which still has not been set up. - Patient is agitated today, feels unsafe, and has urges to kick and punch people and things, so will place him in a private room. - Continue Haldol 5 mg and Ativan 2 mg as needed for psychosis. Consider increasing the Haldol to 10 mg. 12/27 --recommended a retrial of Depakote for irritability/aggression as presents as somewhat manic. Patient is refusing at this time. 306 granted so 304 converted to inpatient and will need to reconvert remaining time to outpatient at discharge. 12/28 -reviewed with patient consideration of Depakote or other additional mood stabilizers and he declined to consider at this time. 12/29 -reviewed mood stabilization options with patient and he declines addition of Depakote due to past history of weight gain from this. (2) Suicidal ideation Q 15 min checks for safety. Encourage group participation and programming. Work on coping skills and safety plan. (3) Cannabis abuse The patient has been educated about the risks of ongoing cannabis abuse, and the recommendations for abstinence. He indicates that he would like to abstain from substance abuse. He may benefit from substance abuse treatment, as this is a chronic problem. (4) Alcohol abuse The patient indicates he has been binge drinking. He has been educated about the risks of alcohol use and the recommendations for abstinence. We will explore options for substance abuse treatment. (5) Hypertension Blood pressure was initially high, but this morning is within the normal range; continue to monitor. (6) Obesity Significant weight gain in the past 2 months, and is obese with a BMI of 32.291. Encouraged healthy food choices, daily exercise, and weight loss. (7) Nicotine abuse Offer nicotine patch and or gum for cravings while here, and educate the patient about the risks of nicotine abuse and recommendations for smoking cessation. Discharge / Aftercare Planning Primary Care Physician: Name: Dr Mullins Appointment Notes: As needed Psychiatrist: Name: Dr Romeo Date of Appointment: Jan 13, 2017 Time of Appointment: 10:00am Therapist: Name: VALENCIA Benny Monsivais Date of Appointment: Jan 14, 2017 Time of Appointment: 9:00am Silk Soaker: Name: Darlyn Rodriguez Visit Code E&M Code: 90353 Inventory Assets Strengths: Has housing, supportive parents, is on an outpatient involuntary commitment. Risk Factors Assessment Male: Yes : Yes /single/: Yes Higher / Fall in social status: No Health problems: No Mental Health Diagnoses: Yes Substance use disorders: Yes Previous attempt: Yes Family history of suicide: No Previous psychiatric stay: Yes Hopelessness: Yes Smoker: Yes Protective Factors Assessment Religion beliefs: Yes : No Responsible for young children: No Employed: No Stable relationships: No Supportive family: Yes Good rapport with provider: No Data Vital Signs Last 24 Hrs: Date Time Temp Pulse Resp B/P (MAP) Pulse Ox O2 Delivery O2 Flow Rate FiO2 12/29/16 06:57 36.5 64 18 135/83 73 131/85 Problem Qualifiers (1) Obesity: Obesity type: unspecified obesity type Obesity classification: adult class 1 (BMI 30 ? 34.9) Body mass index: BMI 32.0-32.9
[2016-12-29] MEDS: PALIPERIDONE 3 MG TABCR PO SCH (21:22)
[2016-12-29] MEDS: hydrOXYzine HCL 25 MG TAB PO PRN (21:22)
[2016-12-30 07:02] VITALS: BP_SYST 132; BP_SYST 150; BP_DIAS 79; BP_DIAS 89; PULSE 77; PULSE 82; TEMP 36.4
[2016-12-30] MEDS: NICOTINE 21 MG/24 HR TDSY TD SCH (08:53)
[2016-12-30] MEDS: LORAZEPAM 2 MG TAB PO PRN (09:20)
--- NOTE | 2016-12-30 11:57 | Psychiatric Progress Notes ---
Progress Note Date of Service Dec 30, 2016. Interval History 26-year-old single white male with schizoaffective disorder bipolar type, history of noncompliance with treatment, and polysubstance abuse who presents with psychosis, depression, and suicidal thoughts with multiple plans. He was initially admitted voluntarily but is also on an outpatient 304 commitment. He has not been taking his psychotropic medications since discharge from the hospital last month. It iinitially was not clear what happened with his long- acting injectable that he was started on here in November, as he was due for his maintenance shot on 12/04/2016, but states he did not get it. We resumed oral Invega for his schizoaffective disorder. Chief Complaint "Good". Subjective Patient was seen & assessed interval progress reviewed with Treatment Team. Staff report he continues to have episodes of irritability, preoccupation with orthodox, is often argumentative with staff, and yesterday filed a grievance because he did not get the lettuce and tomato on his hamburger. Staff contacted the kitchen, who stated he had not requested those items. He attended and participated in groups, and rated his mood a 10 out of 10. He continues to receive Ativan 2 mg when necessary daily. He was seen in his room today with Torres Koroma, MS3. He answers "good" to multiple questions, including mood, sleep, appetite, and how he feels his treatment is progressing. He says he is "trying to organize my life, trying to maintain some type of clarity for my future, but not feel too hardened down on myself, I mean there is obviously certain things I can and can't do, with respect to orthodox, my family, the law, need to make sure I'm standing on a solid foot ground for my diagnosis." He wants to know what he can do to get out of the hospital faster, and again discussed the recommendations for a trial of Depakote, which she continues to refuse, stating "I'm very picky about what medicines I put into my body, because I'm very sensitive. Even on this Invega, I feel there is rushing calvert through my body." He gives conflicting reports at times, stating he doesn't want to feel manic, and then saying that he feels somewhat manic now, but does not want to take a mood stabilizer. He does not really want to be on medications or in treatment, and wants to leave the hospital as soon as possible , stating that he has now decided to try to return to his job at [employer]. He continues to perseverate on his opinion that he has been misdiagnosed and has ADHD, and is quite argumentative about this, stating that another doctor told him he had the symptoms, and then talking about the role of spirituality and how he think this plays into his symptoms. He says he cannot get out of bed because he can't concentrate, and "I'm having these feelings because of my spirituality." In attempting to talk to him about discharge planning, he states that he saw a male therapist at [facility], but they got into an argument over "the meaning of hallucination and delusion," so he was referred to a different therapist whom he has not seen yet. Sleep Information Total Hours of Sleep: 8.25 Meal Information Percent of Breakfast Consumed: 100 Percent of Lunch Consumed: 100 Percent of Dinner Consumed: 100 Mental Status Exam During interview pt is: alert and oriented (partially, argumentative at times) , cooperative (until discussed length of stay) Appearance: appropriately dressed, other (lying in bed awake, overweight, had a shaved) Eye contact is: fair Motor behavior is: no abnormal motor movements Speech: is pressured Affect: irritable, constricted Mood is: irritable Thought process: circumstantial, tangential Thought content: cognitive distortions, delusions (grandeur re: his knowledge and spirituality) Suicidal thought are: denied Homicidal thoughts are: denied Hallucinations: denies auditory, denies visual Cognition: other (memory and attention are impaired by psychosis) Intelligence estimated to be: consistent with level of education Insight: severely impaired Judgement: severely impaired Summary of Past History Records from [facility] previously reviewed by treatment team: Patient was seen by Dr. Chan on 12/19/2016. He had been hospitalized at the [facility] from 11/27/2016 through 12/05/2016. He was supposed to be referred to Tana for therapy, but was not yet scheduled with her. His binder caser Darlyn went to the appointment with him. He was due for his Sustenna shot, which the notes indicate he had gotten on 11/18/2016 (although when he left this facility, his next shot was not due until 12/04/2016). He was unable to get the shot at his appointment as they had not yet received the medication. He was angry, argumentative, and agitated in the appointment, stating that he didn't want treatment, didn't want medications, and was threatening to lacey the doctor. Impression He was due for his Sustenna injection 12/19/2016, and went to his appointment, but did not receive it as the facility had not obtained the medication in time. His injection was given 12/26/16 and increased the dose to 156 mg, as the 117 mg has not been sufficient and he's had 2 hospitalizations since the medication was started. He is slightly more organized, but still psychotic, agitated, and easily overwhelmed. He is taking his medications here, and asking for prn's, but medication compliance as an OP remains a concern. We will need to start working on discharge planning, hopefully involving both his binder caser and father in a family meeting. Plan (1) Schizoaffective disorder - Increase oral Invega to 6 mg qhs, and determine when patient got his last Sustenna shot. - Fasting lipid profile and glucose performed 10/31/2016. Cholesterol levels were normal, and glucose was elevated at 101. - Haldol 5mg po/im and lorazepam 2mg po/im prn psychosis/agitation. Benztropine 1mg prn EPS. Hydroxyzine prn anxiety/insomnia. - Get records from recent [facility] and Dr. Chan at [facility], and coordinate care with binder caser. 12/25 - Continue Invega 6 mg HS - Await records from [place] and Dr. Chan to determine date of last Sustenna injection. 12/26 - Records from [facility] reviewed, the patient was due for his shot on 12/19/2016 , but did not receive it as they had not obtained it in time. - Given Invega Sustenna 156 mg dose today. He requires a higher dose due to ongoing symptoms and to hospitalizations since being started on the shot.. - Have asked staff to contact the [facility] and requested that records be sent as soon as possible. - 306 conversion hearing scheduled for tomorrow, as patient is on an involuntary outpatient 304 commitment. Paperwork will then need to be submitted to [facility] prior to discharge to convert back to outpatient involuntary commitment status. - Patient will need a meeting with his binder caser prior to discharge, and will need to be referred for therapy with Tana at [facility], which still has not been set up. - Patient is agitated today, feels unsafe, and has urges to kick and punch people and things, so will place him in a private room. - Continue Haldol 5 mg and Ativan 2 mg as needed for psychosis. Consider increasing the Haldol to 10 mg. 12/27 --recommended a retrial of Depakote for irritability/aggression as presents as somewhat manic. Patient is refusing at this time. 306 granted so 304 converted to inpatient and will need to reconvert remaining time to outpatient at discharge. 12/28 -reviewed with patient consideration of Depakote or other additional mood stabilizers and he declined to consider at this time. 12/29 -reviewed mood stabilization options with patient and he declines addition of Depakote due to past history of weight gain from this. 12/30 -continues to refuse the recommendations for an additional mood stabilizer, and is focused on having ADHD and wanting medication for that. -schedule family meeting with binder caser and father. -His next shot of Invega Sustenna 156 mg will be due on 01/23/2017. (2) Suicidal ideation Q 15 min checks for safety. Encourage group participation and programming. Work on coping skills and safety plan. (3) Cannabis abuse The patient has been educated about the risks of ongoing cannabis abuse, and the recommendations for abstinence. He indicates that he would like to abstain from substance abuse. He may benefit from substance abuse treatment, as this is a chronic problem. (4) Alcohol abuse The patient indicates he has been binge drinking. He has been educated about the risks of alcohol use and the recommendations for abstinence. We will explore options for substance abuse treatment. (5) Hypertension Blood pressure was initially high, but this morning is within the normal range; continue to monitor. (6) Obesity Significant weight gain in the past 2 months, and is obese with a BMI of 32.291. Encouraged healthy food choices, daily exercise, and weight loss. (7) Nicotine abuse Offer nicotine patch and or gum for cravings while here, and educate the patient about the risks of nicotine abuse and recommendations for smoking cessation. Discharge / Aftercare Planning Primary Care Physician: Name: Dr Mullins Appointment Notes: As needed Psychiatrist: Name: Dr Romeo Date of Appointment: Jan 13, 2017 Time of Appointment: 10:00am Therapist: Name: RADHAJuan A Monsivais Date of Appointment: Jan 14, 2017 Time of Appointment: 9:00am Soccer Player: Name: Darlyn Rodriguez Visit Code E&M Code: 69498 Inventory Assets Strengths: Has housing, supportive parents, is on an outpatient involuntary commitment. Risk Factors Assessment Male: Yes : Yes /single/: Yes Higher / Fall in social status: No Health problems: No Mental Health Diagnoses: Yes Substance use disorders: Yes Previous attempt: Yes Family history of suicide: No Previous psychiatric stay: Yes Hopelessness: Yes Smoker: Yes Protective Factors Assessment Faith beliefs: Yes : No Responsible for young children: No Employed: No Stable relationships: No Supportive family: Yes Good rapport with provider: No Data Vital Signs Last 24 Hrs: Date Time Temp Pulse Resp B/P (MAP) Pulse Ox O2 Delivery O2 Flow Rate FiO2 12/30/16 07:02 36.4 77 18 132/79 82 150/89 Problem Qualifiers (1) Obesity: Obesity type: unspecified obesity type Obesity classification: adult class 1 (BMI 30 ? 34.9) Body mass index: BMI 32.0-32.9
[2016-12-30 18:35] LABS: SYNTHETIC CANNABINOIDS QL URIN NEGATIVE (Negative)
[2016-12-30] MEDS: PALIPERIDONE 3 MG TABCR PO SCH (20:52)
[2016-12-30] MEDS: hydrOXYzine HCL 25 MG TAB PO PRN (20:54)
--- NOTE | 2016-12-30 23:58 | Medical Student: BHU Only ---
Psychiatric Progress Note Date of Service: Dec 30, 2016. IDENTIFYING DATA: Russ Hernández is a 26-year-old white male with schizoaffective bipolar type. He has a history of noncompliance, substance abuse, psychiatric hospitalization, and incarceration. He currently lives in [place] in an apartment by himself. Russ Hernández was admitted to the [facility] on a 201 voluntary but then required a 302 involuntary commitment. Russ Hernández was brought to the hospital by the police after calling them threatening suicide and wanting to go to the hospital. Information provided by the patient oscillates between reliable and unreliable. SUBJECTIVE: The patient was seen and assessed today, and progress was reviewed with nursing and the treatment team. The patient reports doing "good". Sleep was "good"; noted to be for 8 hours by staff. Over the weekend, Russ continued to exhibit nervous behavior. He has requested Ativan daily for anxiety, Cogentin twice for restlessness, and Vistaril 4 times for difficulty sleeping. He visited with his mother, which he tells me "wasn't very good." He repeatedly expressed frustration with his commitment and has been asking staff ways that he could be discharged sooner. His attendance in groups has risen since first being admitted, and has begun to interact more with his peers. I saw Russ with Dr. Kapoor this morning. When asked of his thoughts on his treatment thus far, Russ replied that he is "Trying to organize my life. I'm trying to maintain clarity for my future, but not feel too hardened down on myself." He continued saying, "there is obviously things I can and can't do, with respect to my hoahaoism, my family, the law. I need to make sure I'm standing on a solid ground for my diagnosis." He asked what he can do to get discharged faster, and we discussed the option of starting Depakote. He refused , saying "I'm very picky about what medicines I put into my body. I'm very sensitive. On the Invega, I can feel it rushing through my body." Russ states that he doesn't want to take medication, he wants to leave the hospital as soon as possible to return to his job at [employer]. He insists that he has ADHD and has been diagnosed because he has trouble concentrating. Russ must be set up with a new therapist, because he got into an argument with his original one during discharge planning over their respective definitions of "hallucinations" versus "delusions." After Dr. Kapoor concluded the visit, I stuck around and talked to russ for another 10 minutes. He opened up to me about the stress his girlfriend is calling him. She'll call him some days, and then ignore his calls for a couple days. He claims "it's really messing with me head, playing these games." "I really only have these three people, my mom, who I don't like being around, she causes a lot of problems in my family, my dad, and my girl, and when one of them is playing these games like this, it's messing with me and messing with what happens in here." We discussed the role that these people would play in his life when he gets out of the hospital. He states that his dad will try to be a bigger part of his life, he'll reach out to his girlfriend, and that he wouldn't mind not seeing his mother as much. ROS: as per HPI MSE: Appearance is that of an appropriately dressed male lying in bed, who appears his stated age. The patient is generally cooperative with the interview, but became argumentative several times when discussing further stay in the hospital. Eye contact is good Motor behavior is normal. No abnormal movements Speech: normal volume, pressured Affect: constricted Mood: irritable, easily agitated Thought process: tangential Thought content: denies SI and HI, Cognition: memory is impaired by psychosis Intelligence is estimated to be: appropriate for level of education. His vocabulary suggests above average intelligence Insight is estimated to be impaired Judgment is estimated to be impaired ASSESSMENT: Russ Hernández is a 26-year-old single white male with schizoaffective disorder bipolar type, history of noncompliance with treatment, and polysubstance abuse who presents with psychosis, depression, and suicidal thoughts with multiple plans. He is admitted voluntarily. He is on an outpatient 304 commitment, and has a 306 conversion hearing granted 12/27/2016. Russ has become more involved in groups and interacts more with peers, but still exhibits nervous behavior daily, requiring PRN medications to calm him down. We're still working to get Russ to come to lead php developer with his condition and accept treatment, as it will help him not only become suitable for discharge, but to help him stay healthy and safe once leaving the hospital. PLAN: 1. Schizoaffective Disorder: Chronic, active -Invega 6mg PO daily -Received Sustenna injection 156 mg 12/26/2016 -lorazepam 2mg PO/IM PRN for psychosis and agitation -Vistaril PRN for difficulty sleeping -306 conversion hearing granted, as patient is on an involuntary outpatient 304 commitment. -12/30/2016 Right now Russ is refusing to try another mood stabilizer, despite recommendations that it may increase his chances of earlier discharge. He still needs to have a meeting with his director of casework services regarding a safety plan -Next Invega Sustenna injection scheduled for 01/23/2018 156mg IM 2. Suicidal Ideation: denies currently -Q 15 min checks for safety. -Encourage group participation and programming. -Work on coping skills and safety plan. 3. Cannabis Abuse: chronic, active -He has been educated about the risks of ongoing abuse, he indicates he would like to abstain. Continue to hopi and recommend substance abuse treatment. 4. Alcohol Abuse: chronic, active -Patient Reports binge drinking, he has been educated about the risks of ongoing abuse. He indicates he would like to abstain. Continue to hopi and recommend substance abuse treatment. 5. Hypertension: resolved, stable -High in ED -Continue to monitor 6. Obesity: BMI 32.291 -Encourage healthy food choices, exercise, and weight loss. He enjoy playing basketball, continue to encourage physical activity 7. Nicotine Abuse: chronic, active -Offer nicotine patch and gum during admission, states that he smoked 1 pack per day. He was educated about the risks of smoking and nicotine abuse and recommendations for abstinence.
[2016-12-31 06:36] VITALS: BP_SYST 128; BP_SYST 138; BP_DIAS 84; BP_DIAS 87; PULSE 60; PULSE 84; TEMP 36.8
[2016-12-31] MEDS: NICOTINE 21 MG/24 HR TDSY TD SCH (08:17)
[2016-12-31] MEDS: LORAZEPAM 2 MG TAB PO PRN (11:46)
--- NOTE | 2016-12-31 12:08 | Psychiatric Progress Notes ---
Progress Note Date of Service Dec 31, 2016. Interval History 26-year-old single white male with schizoaffective disorder bipolar type, history of noncompliance with treatment, and polysubstance abuse who presents with psychosis, depression, and suicidal thoughts with multiple plans. He was initially admitted voluntarily but is also on an outpatient 304 commitment. He has not been taking his psychotropic medications since discharge from the hospital last month. It iinitially was not clear what happened with his long- acting injectable that he was started on here in November, as he was due for his maintenance shot on 12/04/2016, but states he did not get it. We resumed oral Invega for his schizoaffective disorder. Chief Complaint "Can I talk to you? I want to get out of here". Subjective Patient was seen & assessed interval progress reviewed with Nursing. Staff report the patient has been less isolative, spending more time out of his room and attending programming. He gets off topic easily, and frequently focuses on restoration. He rated his mood a 10 out of 10, is eating well, and showered. He requested hydroxyzine for sleep, and appeared to sleep well. He continues to receive Ativan 2 mg daily at his request for anxiety. Today, he is seen with Torres Koroma, MS3. He is focused on discharge, stating that he doesn't want to be in the hospital any longer, and says it is causing him to feel more stressed to be here. He says he is bored of the programming offered in the hospital, and says it is "like throwing too many presents on a boy, overwhelming." He wants to be discharged so that he can go back to work at [employer] and spend time with his girlfriend, and says they have gotten back together. She does express some concerns about her own mental health issues, and struggles to relate a plan of how he would handle the situation where she to be calm unstable or suicidal again. He continues to deny suicidal thoughts here, and states that he was only suicidal prior to admission because his girlfriend was, and he wanted to "see what she felt like." He says that she is immature, and "our relationship needs to be based more on me working, and I have a court date coming up, and they might be on house arrest." He states he has poor support from his family, and that his mattress spring encaser is his primary support person. In reviewing his suicidality on admission, he states the situation was exacerbated by the issues with his girlfriend, missing his dose of Sustenna the week prior, and "being high on marijuana." He continues to state that he wants to avoid drug abuse after discharge. He would like to have a meeting with his outpatient mattress spring encaser and is anxious to move forward with the discharge planning process. Sleep Information Total Hours of Sleep: 7.75 Meal Information Percent of Breakfast Consumed: 100 Percent of Lunch Consumed: 100 Percent of Dinner Consumed: 100 Mental Status Exam During interview pt is: alert and oriented, cooperative Appearance: appropriately dressed, appropriately groomed, other (lying in bed awake, overweight, had a shaved) Eye contact is: fair Motor behavior is: steady gait & station, no abnormal motor movements Speech: normal in rate, rhythm & volume Affect: other (calmer today, reactive and appropriate, brightens when discussing discharge) Mood is: other ("good, but stressed here") Thought process: circumstantial Thought content: cognitive distortions, delusions (grandeur re: his knowledge and spirituality) Suicidal thought are: denied Homicidal thoughts are: denied Hallucinations: denies auditory, denies visual Cognition: memory grossly intact, attention grossly intact Intelligence estimated to be: consistent with level of education Insight: impaired Judgement: impaired Summary of Past History Records from [facility] previously reviewed by treatment team: Patient was seen by Dr. Chan on 12/19/2016. He had been hospitalized at the [facility] from 11/27/2016 through 12/05/2016. He was supposed to be referred to [place] for therapy, but was not yet scheduled with her. His mattress spring encaser Darlyn went to the appointment with him. He was due for his Sustenna shot, which the notes indicate he had gotten on 11/18/2016 (although when he left this facility, his next shot was not due until 12/04/2016). He was unable to get the shot at his appointment as they had not yet received the medication. He was angry, argumentative, and agitated in the appointment, stating that he didn't want treatment, didn't want medications, and was threatening to lacey the doctor. Impression He was due for his Sustenna injection 12/19/2016, and went to his appointment, but did not receive it as the facility had not obtained the medication in time. His injection was given 12/26/16 and increased the dose to 156 mg, as the 117 mg has not been sufficient and he's had 2 hospitalizations since the medication was started. He is improving, is more organized, calmer, and better able to process information, although associations are still loose and he is religiously preoccupied. He is engaging more with others and wants to work on discharge planning. He is taking his medications here, and asking for prn's, but medication compliance as an OP remains a concern. We would like to involve his mattress spring encaser and possibly his father in a family meeting. Plan (1) Schizoaffective disorder - Increase oral Invega to 6 mg qhs, and determine when patient got his last Sustenna shot. - Fasting lipid profile and glucose performed 10/31/2016. Cholesterol levels were normal, and glucose was elevated at 101. - Haldol 5mg po/im and lorazepam 2mg po/im prn psychosis/agitation. Benztropine 1mg prn EPS. Hydroxyzine prn anxiety/insomnia. - Get records from recent [facility] and Dr. Chan at [facility], and coordinate care with mattress spring encaser. 12/25 - Continue Invega 6 mg HS - Await records from [place] and Dr. Chan to determine date of last Sustenna injection. 12/26 - Records from [facility] reviewed, the patient was due for his shot on 12/19/2016 , but did not receive it as they had not obtained it in time. - Given Invega Sustenna 156 mg dose today. He requires a higher dose due to ongoing symptoms and to hospitalizations since being started on the shot.. - Have asked staff to contact the [facility] and requested that records be sent as soon as possible. - 306 conversion hearing scheduled for tomorrow, as patient is on an involuntary outpatient 304 commitment. Paperwork will then need to be submitted to [facility] prior to discharge to convert back to outpatient involuntary commitment status. - Patient will need a meeting with his mattress spring encaser prior to discharge, and will need to be referred for therapy with Tana at [facility], which still has not been set up. - Patient is agitated today, feels unsafe, and has urges to kick and punch people and things, so will place him in a private room. - Continue Haldol 5 mg and Ativan 2 mg as needed for psychosis. Consider increasing the Haldol to 10 mg. 12/27 --recommended a retrial of Depakote for irritability/aggression as presents as somewhat manic. Patient is refusing at this time. 306 granted so 304 converted to inpatient and will need to reconvert remaining time to outpatient at discharge. 12/28 -reviewed with patient consideration of Depakote or other additional mood stabilizers and he declined to consider at this time. 12/29 -reviewed mood stabilization options with patient and he declines addition of Depakote due to past history of weight gain from this. 12/30 -continues to refuse the recommendations for an additional mood stabilizer, and is focused on having ADHD and wanting medication for that. -schedule family meeting with mattress spring encaser and father. -His next shot of Invega Sustenna 156 mg will be due on 01/23/2017. 12/31 -continue current plan. Encourage patient to work on safety plan. (2) Suicidal ideation Q 15 min checks for safety. Encourage group participation and programming. Work on coping skills and safety plan. (3) Cannabis abuse The patient has been educated about the risks of ongoing cannabis abuse, and the recommendations for abstinence. He indicates that he would like to abstain from substance abuse. He may benefit from substance abuse treatment, as this is a chronic problem. (4) Alcohol abuse The patient indicates he has been binge drinking. He has been educated about the risks of alcohol use and the recommendations for abstinence. We will explore options for substance abuse treatment. (5) Hypertension Blood pressure was initially high, but this morning is within the normal range; continue to monitor. (6) Obesity Significant weight gain in the past 2 months, and is obese with a BMI of 32.291. Encouraged healthy food choices, daily exercise, and weight loss. (7) Nicotine abuse Offer nicotine patch and or gum for cravings while here, and educate the patient about the risks of nicotine abuse and recommendations for smoking cessation. Discharge / Aftercare Planning Primary Care Physician: Name: Dr Mullins Appointment Notes: As needed Psychiatrist: Name: Dr Romeo Date of Appointment: Jan 13, 2017 Time of Appointment: 10:00am Therapist: Name: [facility] Benny Monsivais Date of Appointment: Jan 14, 2017 Time of Appointment: 9:00am Trim Machine Operator: Name: Darlyn Rodriguez Visit Code E&M Code: 57963 Inventory Assets Strengths: Has housing, supportive parents, is on an outpatient involuntary commitment. Risk Factors Assessment Male: Yes : Yes /single/: Yes Higher / Fall in social status: No Health problems: No Mental Health Diagnoses: Yes Substance use disorders: Yes Previous attempt: Yes Family history of suicide: No Previous psychiatric stay: Yes Hopelessness: Yes Smoker: Yes Protective Factors Assessment Sikh beliefs: Yes : No Responsible for young children: No Employed: No Stable relationships: No Supportive family: Yes Good rapport with provider: No Data Vital Signs Last 24 Hrs: Date Time Temp Pulse Resp B/P (MAP) Pulse Ox O2 Delivery O2 Flow Rate FiO2 12/31/16 06:36 36.8 60 18 128/87 84 138/84 Problem Qualifiers (1) Obesity: Obesity type: unspecified obesity type Obesity classification: adult class 1 (BMI 30 ? 34.9) Body mass index: BMI 32.0-32.9
[2016-12-31] MEDS: PALIPERIDONE 3 MG TABCR PO SCH (21:27)
[2016-12-31] MEDS: hydrOXYzine HCL 25 MG TAB PO PRN (21:57)
--- NOTE | 2016-12-31 22:53 | Medical Student: BHU Only ---
Psychiatric Progress Note Date of Service: Dec 31, 2016. IDENTIFYING DATA: Diogo Hernández is a 26-year-old white male with schizoaffective bipolar type. He has a history of noncompliance, substance abuse, psychiatric hospitalization, and incarceration. He currently lives in [place] in an apartment by himself. Diogo Hernández was admitted to the [facility] on a 201 voluntary but then required a 302 involuntary commitment. Diogo Hernández was brought to the hospital by the police after calling them threatening suicide and wanting to go to the hospital. Information provided by the patient oscillates between reliable and unreliable. SUBJECTIVE: Patient was seen & assessed interval progress reviewed with Nursing. Slept 7.5 hours last night. Mood is "good," "feeling better." Staff reports that the patient has been more involved in groups, interacting more with peers, and spending more time outside of his bedroom. He requested hydroxyzine for sleep last night. He is still requesting Ativan PRN for anxiety almost daily. I visited him with Dr. Kapoor this morning. I asked him for his thoughts on his hospitalization, and Diogo remains focused on getting discharged. When talking about group programming, Diogo replied saying "I like them, I think they help talking things out." He also called them boring sometimes, saying they are like "throwing too many presents on a boy, it's overwhelming." He endorses his own need for medication, attributing his suicidal behavior to missing his Invega injections and the situation with his girlfriend. He gets off topic easily, and like many conversations before, he shifts the focus back to baptist and spirituality. He's worried about his girlfriend. He had been having stress over his difficulty communicating with her, and reports this morning he's worried about her mental health. He wants to go back to work at [employer], spend time with his girlfriend. He denies suicidal ideation, citing previous reports of him "just wanting to see what she felt like." Diogo says that his girlfriend is immature. He mentions that he has an upcoming court date, and may be placed on house arrest. Despite telling me yesterday that his father was going to try to be more involved in his life, today Diogo reports that he doesn't have any support other than his housing case manager Darlyn. He would like to set up a meeting with his housing case manager to get his discharge set up as soon as possible. ROS: as per HPI MSE: Appearance is that of an appropriately dressed male, who appears his stated age. The patient is generally cooperative with the interview. Eye contact is good Motor behavior is normal. No abnormal movements Speech: normal volume, slightly pressured Affect: kwan than yesterday, demonstrated range of emotion when talking wither about reasons for stress or being discharged Mood: "good" "stressed" Thought process: tangential Thought content: denies SI and HI, some delusion regarding his knowledge of the spiritual world Cognition: memory and attention appear to be intact, with occasional lapses Intelligence is estimated to be: appropriate for level of education. His vocabulary suggests above average intelligence Insight is estimated to be impaired Judgment is estimated to be impaired ASSESSMENT: Diogo Hernández is a 26-year-old single white male with schizoaffective disorder bipolar type, history of noncompliance with treatment, and polysubstance abuse who presents with psychosis, depression, and suicidal thoughts with multiple plans. He is admitted voluntarily. He is on an outpatient 304 commitment, and has a 306 conversion hearing granted 12/27/2016. Diogo has become more involved in groups and interacts more with peers, but still exhibits nervous behavior daily, requiring PRN medications to calm him down. We're still working to get Diogo to come to dye mixer with his condition and accept treatment, as it will help him not only become suitable for discharge, but to help him stay healthy and safe once leaving the hospital. PLAN: 1. Schizoaffective Disorder: Chronic, active -Invega 6mg PO daily -Received Sustenna injection 156 mg 12/26/2016 -lorazepam 2mg PO/IM PRN for psychosis and agitation -Vistaril PRN for difficulty sleeping -306 conversion hearing granted, as patient is on an involuntary outpatient 304 commitment. -12/30/2016 Right now Diogo is refusing to try another mood stabilizer, despite recommendations that it may increase his chances of earlier discharge. He still needs to have a meeting with his manager case management regarding a safety plan -Next Invega Sustenna injection scheduled for 01/23/2018 156mg IM 2. Suicidal Ideation: denies currently -Q 15 min checks for safety. -Encourage group participation and programming. -Work on coping skills and safety plan. 3. Cannabis Abuse: chronic, active -He has been educated about the risks of ongoing abuse, he indicates he would like to abstain. Continue to [place] and recommend substance abuse treatment. 4. Alcohol Abuse: chronic, active -Patient Reports binge drinking, he has been educated about the risks of ongoing abuse. He indicates he would like to abstain. Continue to [place]ayune and recommend substance abuse treatment. 5. Hypertension: resolved, stable -High in ED -Continue to monitor 6. Obesity: BMI 32.291 -Encourage healthy food choices, exercise, and weight loss. He enjoy playing basketball, continue to encourage physical activity 7. Nicotine Abuse: chronic, active -Offer nicotine patch and gum during admission, states that he smoked 1 pack per day. He was educated about the risks of smoking and nicotine abuse and recommendations for abstinence.
[2017-01-01 06:41] VITALS: BP_SYST 144; BP_DIAS 75; BP_DIAS 93; PULSE 61; PULSE 85; TEMP 36.4
[2017-01-01] MEDS: NICOTINE 21 MG/24 HR TDSY TD SCH (08:20)
--- NOTE | 2017-01-01 12:07 | Psychiatric Progress Notes ---
Progress Note Date of Service Jan 01, 2017. Interval History 26-year-old single white male with schizoaffective disorder bipolar type, history of noncompliance with treatment, and polysubstance abuse who presents with psychosis, depression, and suicidal thoughts with multiple plans. He was initially admitted voluntarily but is also on an outpatient 304 commitment. He has not been taking his psychotropic medications since discharge from the hospital last month. It iinitially was not clear what happened with his long- acting injectable that he was started on here in November, as he was due for his maintenance shot on 12/04/2016, but states he did not get it. We resumed oral Invega for his schizoaffective disorder. Chief Complaint "Just thinking about things". Subjective Patient was seen & assessed interval progress reviewed with Treatment Team. Staff report he is eating and sleeping well, but is isolating in his room and refusing most groups. He remains focused on discharge, and does not want to be in the hospital. A meeting has been scheduled with his outpatient case specialist and father for tomorrow. Today, he was seen in his room, where he is lying in bed awake. He says he slept well, but is lying in bed to rest, and because he is "still stressed out about being in here, just trying to make the time go by. " He continues to report poor focus, saying he thinks he has ADHD, and complains that he has told people this over the course of his many hospitalizations and "no one listens to me or gives me the meds I want." He says he is also been thinking about "what am I gonna do with myself, I spends so much time in the hospital, and on this medicine, I don't think any medicine has helped, if I go back to this job and work at it, there can cut out my Social Security, I got a pay rent, and they don't provide housing assistance here in [place]." He says that his rep payee told him that he couldn't keep working or he would lose his Social Security, and he was hoping to return to his job at [employer], as he liked. He says he went to safety plan group yesterday , and is able to review his safety plan, including calling his grandparents, the crisis line, or 911, stating he wants to "talk to someone before making an impulsive decision." He is very focused on discharge, asking multiple times if he can be discharged tomorrow as soon as his meeting is over, and was told that likely Friday would be the earliest discharge day, and that this would depend on his symptoms and aftercare plan Sleep Information Total Hours of Sleep: 8.25 Meal Information Percent of Breakfast Consumed: 100 Percent of Lunch Consumed: 100 Percent of Dinner Consumed: 100 Mental Status Exam During interview pt is: alert and oriented, cooperative Appearance: appropriately dressed, disheveled, other (lying in bed with shorts on and no shirt, awake, overweight, shaved head) Eye contact is: fair Motor behavior is: steady gait & station, no abnormal motor movements Speech: normal in rate, rhythm & volume Affect: blunted, irritable Mood is: other ("stressed because I'm here") Thought process: goal directed Thought content: preoccupation (with discharge), cognitive distortions Suicidal thought are: denied Homicidal thoughts are: denied Hallucinations: denies auditory, denies visual Cognition: memory grossly intact, attention grossly intact Intelligence estimated to be: consistent with level of education Insight: impaired Judgement: impaired Summary of Past History Records from [facility] previously reviewed by treatment team: Patient was seen by Dr. Chan on 12/19/2016. He had been hospitalized at the [facility] from 11/27/2016 through 12/05/2016. He was supposed to be referred to [facility] for therapy, but was not yet scheduled with her. His case specialist Darlyn went to the appointment with him. He was due for his Sustenna shot, which the notes indicate he had gotten on 11/18/2016 (although when he left this facility, his next shot was not due until 12/04/2016). He was unable to get the shot at his appointment as they had not yet received the medication. He was angry, argumentative, and agitated in the appointment, stating that he didn't want treatment, didn't want medications, and was threatening to lacey the doctor. Impression He was due for his Sustenna injection 12/19/2016, and went to his appointment, but did not receive it as the facility had not obtained the medication in time. His injection was given 12/26/16 and increased the dose to 156 mg, as the 117 mg has not been sufficient and he's had 2 hospitalizations since the medication was started. He is improving, is more organized, calmer, and better able to process information, although associations are still loose and he is religiously preoccupied. He is engaging more with others and wants to work on discharge planning. He is taking his medications here, and continues to get daily prn's, but medication compliance as an OP remains a concern. A meeting is scheduled with his case specialist and father tomorrow for discharge planning. Plan (1) Schizoaffective disorder - Increase oral Invega to 6 mg qhs, and determine when patient got his last Sustenna shot. - Fasting lipid profile and glucose performed 10/31/2016. Cholesterol levels were normal, and glucose was elevated at 101. - Haldol 5mg po/im and lorazepam 2mg po/im prn psychosis/agitation. Benztropine 1mg prn EPS. Hydroxyzine prn anxiety/insomnia. - Get records from recent [facility] and Dr. Chan at [facility], and coordinate care with case specialist. 12/25 - Continue Invega 6 mg HS - Await records from [facility] and Dr. Chan to determine date of last Sustenna injection. 12/26 - Records from [facility] reviewed, the patient was due for his shot on 12/19/2016 , but did not receive it as they had not obtained it in time. - Given Invega Sustenna 156 mg dose today. He requires a higher dose due to ongoing symptoms and to hospitalizations since being started on the shot.. - Have asked staff to contact the [facility] and requested that records be sent as soon as possible. - 306 conversion hearing scheduled for tomorrow, as patient is on an involuntary outpatient 304 commitment. Paperwork will then need to be submitted to [facility] prior to discharge to convert back to outpatient involuntary commitment status. - Patient will need a meeting with his case specialist prior to discharge, and will need to be referred for therapy with Tana at [facility], which still has not been set up. - Patient is agitated today, feels unsafe, and has urges to kick and punch people and things, so will place him in a private room. - Continue Haldol 5 mg and Ativan 2 mg as needed for psychosis. Consider increasing the Haldol to 10 mg. 12/27 --recommended a retrial of Depakote for irritability/aggression as presents as somewhat manic. Patient is refusing at this time. 306 granted so 304 converted to inpatient and will need to reconvert remaining time to outpatient at discharge. 12/28 -reviewed with patient consideration of Depakote or other additional mood stabilizers and he declined to consider at this time. 12/29 -reviewed mood stabilization options with patient and he declines addition of Depakote due to past history of weight gain from this. 12/30 -continues to refuse the recommendations for an additional mood stabilizer, and is focused on having ADHD and wanting medication for that. -schedule family meeting with case specialist and father. -His next shot of Invega Sustenna 156 mg will be due on 01/23/2017. 12/31 -continue current plan. Encourage patient to work on safety plan. 01/01 -Discharge planning meeting scheduled for tomorrow. Discontinue Ativan when necessary as he is calm her and no longer psychotic, and discontinue medically necessary private room in preparation for discharge hopefully later this week. (2) Suicidal ideation Q 15 min checks for safety. Encourage group participation and programming. Work on coping skills and safety plan. (3) Cannabis abuse The patient has been educated about the risks of ongoing cannabis abuse, and the recommendations for abstinence. He indicates that he would like to abstain from substance abuse. He may benefit from substance abuse treatment, as this is a chronic problem. (4) Alcohol abuse The patient indicates he has been binge drinking. He has been educated about the risks of alcohol use and the recommendations for abstinence. We will explore options for substance abuse treatment. (5) Hypertension Blood pressure was initially high, but this morning is within the normal range; continue to monitor. (6) Obesity Significant weight gain in the past 2 months, and is obese with a BMI of 32.291. Encouraged healthy food choices, daily exercise, and weight loss. (7) Nicotine abuse Offer nicotine patch and or gum for cravings while here, and educate the patient about the risks of nicotine abuse and recommendations for smoking cessation. Discharge / Aftercare Planning Primary Care Physician: Name: Dr Mullins Appointment Notes: As needed Psychiatrist: Name: Dr Romeo Date of Appointment: Jan 13, 2017 Time of Appointment: 10:00am Therapist: Name: [facility] Benny Monsivais Date of Appointment: Jan 14, 2017 Time of Appointment: 9:00am Communications Equipment Operator: Name: Darlyn Rodriguez Visit Code E&M Code: 87635 Inventory Assets Strengths: Has housing, supportive parents, is on an outpatient involuntary commitment. Risk Factors Assessment Male: Yes : Yes /single/: Yes Higher / Fall in social status: No Health problems: No Mental Health Diagnoses: Yes Substance use disorders: Yes Previous attempt: Yes Family history of suicide: No Previous psychiatric stay: Yes Hopelessness: Yes Smoker: Yes Protective Factors Assessment Sikhism beliefs: Yes : No Responsible for young children: No Employed: No Stable relationships: No Supportive family: Yes Good rapport with provider: No Data Vital Signs Last 24 Hrs: Date Time Temp Pulse Resp B/P (MAP) Pulse Ox O2 Delivery O2 Flow Rate FiO2 01/01/17 06:41 36.4 61 17 144/75 85 144/93 Problem Qualifiers (1) Obesity: Obesity type: unspecified obesity type Obesity classification: adult class 1 (BMI 30 ? 34.9) Body mass index: BMI 32.0-32.9
[2017-01-01] MEDS ORDERED: LORAZEPAM 2 MG/ML 1 ML VIAL IM PRN (12:45)
--- NOTE | 2017-01-01 13:42 | Medical Student: BHU Only ---
Psychiatric Progress Note Date of Service: Jan 01, 2017. IDENTIFYING DATA: Diogo Hernández is a 26-year-old white male with schizoaffective bipolar type. He has a history of noncompliance, substance abuse, psychiatric hospitalization, and incarceration. He currently lives in [place] in an apartment by himself. Diogo Hernández was admitted to the [facility] on a 201 voluntary but then required a 302 involuntary commitment. Diogo Hernández was brought to the hospital by the police after calling them threatening suicide and wanting to go to the hospital. Information provided by the patient oscillates between reliable and unreliable. SUBJECTIVE: Patient was seen & assessed interval progress reviewed with the treatment team. Slept 8 hours last night. Mood is "frustrated" After being more involved with the milieu the past couple days, Diogo has gone back to isolating himself, and is refusing to attend group programming. He reports being frustrated because here's "been here too long, I need to get out of here." He expressed frustration over not being taken seriously by hospital staff during any inpatient treatment in the past. Like yesterday, he perseverated the notion that he think he has ADHD, and should be receiving medicine for that instead. He also tells me he has been thinking about his life once he gets out of the hospital. He spoke more about going back to his job at [employer] so he can "pay bills, you know, get freedom back." He has a meeting with his supervisor case loading tomorrow at 1330 that I will try to attend. I asked about his safety plan, and he endorsed desire to "call someone when I'm in a tough spot. Talk to someone I know first." He also knows to call 911 if need be. This afternoon during one of the group programs, Diogo and another male patient got into a verbal altercation and would not redirect despite multiple attempts. He and another male patient were so disruptive that afternoon group was cancelled due to low expected turnout and risk of aggravation. ROS: as per HPI MSE: Appearance is that of an appropriately dressed male, who appears his stated age. The patient is generally cooperative with the interview. Eye contact is good Motor behavior is normal. No abnormal movements Speech: normal in rate rhythm and volume Affect: constricted Mood: "frustrated" Thought process: goal directed Thought content: preoccupied with discharge Cognition: memory and attention appear to be intact, with occasional lapses Intelligence is estimated to be: appropriate for level of education. His vocabulary suggests above average intelligence Insight is estimated to be impaired Judgment is estimated to be impaired ASSESSMENT: Diogo Hernández is a 26-year-old single white male with schizoaffective disorder bipolar type, history of noncompliance with treatment, and polysubstance abuse who presents with psychosis, depression, and suicidal thoughts with multiple plans. He is admitted voluntarily. He is on an outpatient 304 commitment, and has a 306 conversion hearing granted 12/27/2016. Diogo has become more involved in groups and interacts more with peers, but still exhibits nervous behavior daily, requiring PRN medications to calm him down. We're still working to get Diogo to come to landscaping manager with his condition and accept treatment, as it will help him not only become suitable for discharge, but to help him stay healthy and safe once leaving the hospital. PLAN: 1. Schizoaffective Disorder: Chronic, active -Invega 6mg PO daily -Received Sustenna injection 156 mg 12/26/2016 -lorazepam 2mg PO/IM PRN for psychosis and agitation -Vistaril PRN for difficulty sleeping -306 conversion hearing granted, as patient is on an involuntary outpatient 304 commitment. -12/30/2016 Right now Diogo is refusing to try another mood stabilizer, despite recommendations that it may increase his chances of earlier discharge. He still needs to have a meeting with his employment evaluator/case manager regarding a safety plan -Next Invega Sustenna injection scheduled for 01/23/2018 156mg IM -It was originally thought we could remove the necessity for Diogo to have his own room, but his outburst today during groups leads us against that decision 2. Suicidal Ideation: denies currently -Q 15 min checks for safety. -Encourage group participation and programming. -Work on coping skills and safety plan. 3. Cannabis Abuse: chronic, active -He has been educated about the risks of ongoing abuse, he indicates he would like to abstain. Continue to [place] and recommend substance abuse treatment. 4. Alcohol Abuse: chronic, active -Patient Reports binge drinking, he has been educated about the risks of ongoing abuse. He indicates he would like to abstain. Continue to [place] and recommend substance abuse treatment. 5. Hypertension: resolved, stable -High in ED -Continue to monitor 6. Obesity: BMI 32.291 -Encourage healthy food choices, exercise, and weight loss. He enjoy playing basketball, continue to encourage physical activity 7. Nicotine Abuse: chronic, active -Offer nicotine patch and gum during admission, states that he smoked 1 pack per day. He was educated about the risks of smoking and nicotine abuse and recommendations for abstinence.
[2017-01-01] MEDS: hydrOXYzine HCL 25 MG TAB PO PRN ×2 (18:26→21:45)
[2017-01-01] MEDS: PALIPERIDONE 3 MG TABCR PO SCH (21:06)
[2017-01-02 06:49] VITALS: BP_SYST 134; BP_SYST 144; BP_DIAS 77; BP_DIAS 90; PULSE 61; PULSE 75; TEMP 36.4
[2017-01-02] MEDS: NICOTINE 21 MG/24 HR TDSY TD SCH (08:49)
--- NOTE | 2017-01-02 12:48 | Psychiatric Progress Notes ---
Progress Note Date of Service Jan 02, 2017. Interval History 26-year-old single white male with schizoaffective disorder bipolar type, history of noncompliance with treatment, and polysubstance abuse who presents with psychosis, depression, and suicidal thoughts with multiple plans. He was initially admitted voluntarily but is also on an outpatient 304 commitment. He has not been taking his psychotropic medications since discharge from the hospital last month. It iinitially was not clear what happened with his long- acting injectable that he was started on here in November, as he was due for his maintenance shot on 12/04/2016, but states he did not get it. We resumed oral Invega for his schizoaffective disorder. Chief Complaint "I'm just trying to abide by the treatment.". Subjective Patient was seen & assessed interval progress reviewed with Treatment Team. The patient is pacing the halls again today, anxious to be discharged. He says that he gets frustrated being in the hospital, thinking of it as a "dark box" and wants to be able to find his place in society. He acknowledges problems between his perceptions and those of others and a need to communicate more clearly about his thoughts. He recognizes that violence is not acceptable, but says that he thinks people get intimidated by him because "I'm a big amado" and when he raises his voice, others become frightened. He says that he just wants to "take the treatment" and get back to work at [employer]. He has an apartment, that his father helped him with financially, and wants to "be in the real world. He is calm in his discussion and able to smile and find humor in things. He denies SI/HI, denies aud/vis hallucinations. he is having a meeting with his father and his rn case management this afternoon, and has nothing special to talk about other than wanting to be calm and "get out of here.". Sleep Information Total Hours of Sleep: 7.75 Meal Information Percent of Breakfast Consumed: 100 Percent of Lunch Consumed: 100 Percent of Dinner Consumed: 100 Mental Status Exam During interview pt is: alert and oriented, cooperative Appearance: appropriately dressed, disheveled (shorts, hoodie with cut off sleeves, shaved head) Eye contact is: fair Motor behavior is: steady gait & station, no abnormal motor movements, psychomotor agitation (pacing) Speech: normal in rate, rhythm & volume Affect: blunted, irritable Mood is: other ("stressed because I'm here") Thought process: goal directed Thought content: preoccupation (with discharge), cognitive distortions Suicidal thought are: denied Homicidal thoughts are: denied Hallucinations: denies auditory, denies visual Cognition: memory grossly intact, attention grossly intact Intelligence estimated to be: consistent with level of education Insight: impaired Judgement: impaired Summary of Past History Records from [facility] previously reviewed by treatment team: Patient was seen by Dr. Chan on 12/19/2016. He had been hospitalized at the [facility] from 11/27/2016 through 12/05/2016. He was supposed to be referred to Tana for therapy, but was not yet scheduled with her. His rn case management Darlyn went to the appointment with him. He was due for his Sustenna shot, which the notes indicate he had gotten on 11/18/2016 (although when he left this facility, his next shot was not due until 12/04/2016). He was unable to get the shot at his appointment as they had not yet received the medication. He was angry, argumentative, and agitated in the appointment, stating that he didn't want treatment, didn't want medications, and was threatening to lacey the doctor. Impression Difficult day yesterday, getting irritable about being in the hospital and joining with another patient in their unhappiness. FAmily meeting today with father and rn case management, and will see how close to baseline they think he is. He has remained in behavioral control. he wants to be discharged as soon as possible, but we will obtain information from father during the meeting before determining this. Continue current meds. Plan (1) Schizoaffective disorder - Increase oral Invega to 6 mg qhs, and determine when patient got his last Sustenna shot. - Fasting lipid profile and glucose performed 10/31/2016. Cholesterol levels were normal, and glucose was elevated at 101. - Haldol 5mg po/im and lorazepam 2mg po/im prn psychosis/agitation. Benztropine 1mg prn EPS. Hydroxyzine prn anxiety/insomnia. - Get records from recent [facility] hospitalization and Dr. Chan at [facility], and coordinate care with rn case management. 12/25 - Continue Invega 6 mg HS - Await records from [place] and Dr. Chan to determine date of last Sustenna injection. 12/26 - Records from [facility] reviewed, the patient was due for his shot on 12/19/2016 , but did not receive it as they had not obtained it in time. - Given Invega Sustenna 156 mg dose today. He requires a higher dose due to ongoing symptoms and to hospitalizations since being started on the shot.. - Have asked staff to contact the [facility] and requested that records be sent as soon as possible. - 306 conversion hearing scheduled for tomorrow, as patient is on an involuntary outpatient 304 commitment. Paperwork will then need to be submitted to [facility] prior to discharge to convert back to outpatient involuntary commitment status. - Patient will need a meeting with his rn case management prior to discharge, and will need to be referred for therapy with Tana at [facility], which still has not been set up. - Patient is agitated today, feels unsafe, and has urges to kick and punch people and things, so will place him in a private room. - Continue Haldol 5 mg and Ativan 2 mg as needed for psychosis. Consider increasing the Haldol to 10 mg. 12/27 --recommended a retrial of Depakote for irritability/aggression as presents as somewhat manic. Patient is refusing at this time. 306 granted so 304 converted to inpatient and will need to reconvert remaining time to outpatient at discharge. 12/28 -reviewed with patient consideration of Depakote or other additional mood stabilizers and he declined to consider at this time. 12/29 -reviewed mood stabilization options with patient and he declines addition of Depakote due to past history of weight gain from this. 12/30 -continues to refuse the recommendations for an additional mood stabilizer, and is focused on having ADHD and wanting medication for that. -schedule family meeting with rn case management and father. -His next shot of Invega Sustenna 156 mg will be due on 01/23/2017. 12/31 -continue current plan. Encourage patient to work on safety plan. 01/01 -Discharge planning meeting scheduled for tomorrow. Discontinue Ativan when necessary as he is calm her and no longer psychotic, and discontinue medically necessary private room in preparation for discharge hopefully later this week. 01/02 - Family meeting at 1330 (2) Suicidal ideation Q 15 min checks for safety. Encourage group participation and programming. Work on coping skills and safety plan. (3) Cannabis abuse The patient has been educated about the risks of ongoing cannabis abuse, and the recommendations for abstinence. He indicates that he would like to abstain from substance abuse. He may benefit from substance abuse treatment, as this is a chronic problem. (4) Alcohol abuse The patient indicates he has been binge drinking. He has been educated about the risks of alcohol use and the recommendations for abstinence. We will explore options for substance abuse treatment. (5) Hypertension Blood pressure was initially high, but this morning is within the normal range; continue to monitor. (6) Obesity Significant weight gain in the past 2 months, and is obese with a BMI of 32.291. Encouraged healthy food choices, daily exercise, and weight loss. (7) Nicotine abuse Offer nicotine patch and or gum for cravings while here, and educate the patient about the risks of nicotine abuse and recommendations for smoking cessation. Discharge / Aftercare Planning Primary Care Physician: Name: Dr Mullins Appointment Notes: As needed Psychiatrist: Name: Dr Romeo Date of Appointment: Jan 13, 2017 Time of Appointment: 10:00am Therapist: Name: [facility] Benny Monsivais Date of Appointment: Jan 14, 2017 Time of Appointment: 9:00am Grip Assembler: Name: Darlyn Rodriguez Visit Code E&M Code: 28194 Inventory Assets Strengths: Has housing, supportive parents, is on an outpatient involuntary commitment. Risk Factors Assessment Male: Yes : Yes /single/: Yes Higher / Fall in social status: No Health problems: No Mental Health Diagnoses: Yes Substance use disorders: Yes Previous attempt: Yes Family history of suicide: No Previous psychiatric stay: Yes Hopelessness: Yes Smoker: Yes Protective Factors Assessment Adventist beliefs: Yes : No Responsible for young children: No Employed: No Stable relationships: No Supportive family: Yes Good rapport with provider: No Data Vital Signs Last 24 Hrs: Date Time Temp Pulse Resp B/P (MAP) Pulse Ox O2 Delivery O2 Flow Rate FiO2 01/02/17 06:49 36.4 61 16 134/77 75 144/90 Meds Administered Last 24 Hrs: Current Inpatient Medications Medications (Trade) Dose Ordered Sig/Rehana Route Start Time Stop Time Status Last Admin Dose Admin Haloperidol (Haldol Tab) 5 mg Q6H PRN PO 12/23/16 20:45 01/22/17 20:44 12/26/16 17:39 5 MG Haloperidol Lactate (Haldol Inj) 5 mg Q6H PRN IM 12/23/16 20:45 01/22/17 20:44 Lorazepam (Ativan Tab) 2 mg Q6H PRN PO 12/23/16 20:45 01/22/17 20:44 12/31/16 11:46 2 MG Benztropine Mesylate (Cogentin Tab) 1 mg Q6H PRN PO 12/23/16 20:45 01/22/17 20:44 12/28/16 18:49 1 MG Nicotine (Nicoderm Cq 21MG Patch) 1 patch QAM TD 12/24/16 09:00 01/23/17 08:59 12/31/16 08:17 1 PATCH Miscellaneous (Remove Nicoderm Patch) 1 ea HS N/A 12/24/16 22:00 01/23/17 21:59 01/01/17 21:06 1 EA Acetaminophen (Tylenol Tab) 650 mg Q4H PRN PO 12/23/16 20:45 01/22/17 20:44 12/24/16 10:08 650 MG Al Hydroxide/Mg Hydroxide (Maalox Susp) 30 ml Q4H PRN PO 12/23/16 20:45 01/22/17 20:44 Bismuth Subsalicylate (Kaopectate Liqd) 15 ml DAILY PRN PO 12/23/16 20:45 01/22/17 20:44 Magnesium Hydroxide (Milk Of Magnesia Susp) 30 ml DAILY PRN PO 12/23/16 20:45 01/22/17 20:44 Sodium Chloride ([place] Nasal [place]) PRN PRN NA 12/23/16 20:45 01/22/17 20:44 12/24/16 18:00 2 SPRAYS Hydroxyzine HCl (Vistaril Tab) 50 mg HSZ PRN PO 12/23/16 20:45 01/22/17 20:44 01/01/17 21:45 50 MG Hydroxyzine HCl (Vistaril Tab) 25 mg Q4H PRN PO 12/23/16 20:45 01/22/17 20:44 01/01/17 18:26 25 MG Paliperidone (Invega) 6 mg HS PO 12/24/16 22:00 01/22/17 21:59 01/01/17 21:06 6 MG Trihexyphenidyl HCl (Artane Tab) 2 mg Q4H PRN PO 12/27/16 08:30 01/26/17 08:29 12/27/16 17:04 2 MG Menthol (Nice Ramila) 1 ramila Q2H PRN PO 12/27/16 13:45 01/26/17 13:44 12/29/16 12:35 1 RAMILA Lorazepam (Ativan Inj) 2 mg Q4H PRN IM 01/01/17 12:45 01/31/17 12:44 Lab Results Last 24 Hrs: 12/23/16 09:54 Red Blood Count 5.00, Mean Corpuscular Volume 84.4, Mean Corpuscular Hemoglobin 29.2, Mean Corpuscular Hemoglobin Concent 34.6, Mean Platelet Volume 9.4, Neutrophils (%) (Auto) 76.3, Lymphocytes (%) (Auto) 14.1, Monocytes (%) (Auto) 7.8, Eosinophils (%) (Auto) 1.3, Basophils (%) (Auto) 0.2, Neutrophils # (Auto) 4.77, Lymphocytes # (Auto) 0.88, Monocytes # (Auto) 0.49, Eosinophils # (Auto) 0.08, Basophils # (Auto) 0.01 12/23/16 09:54 12/24/16 08:44 Test 12/23/16 09:26 12/23/16 09:54 12/23/16 09:57 12/24/16 08:44 Urine Color DK YELLOW Urine Appearance CLOUDY (CLEAR) Urine pH 6.5 (4.5-7.5) Urine Specific [place] 1.033 (1.000-1.030) Urine Protein NEG (NEG) Urine Glucose (UA) NEG (NEG) Urine Ketones 2+ (NEG) Urine Occult Blood NEG (NEG) Urine Nitrite NEG (NEG) Urine Bilirubin NEG (NEG) Urine Urobilinogen NEG (NEG) Urine Leukocyte Esterase NEG (NEG) Urine WBC (Auto) 1-5 /hpf (0-5) Urine RBC (Auto) 0-4 /hpf (0-4) Urine Hyaline Casts (Auto) 1-5 /lpf (0-5) Urine Epithelial Cells (Auto) 10-20 /lpf (0-5) Urine Bacteria (Auto) NEG (NEG) Urine Synthetic Stimulants see note Urine Opiates Screen NEG (NEG) Urine Methadone, Qualitative NEG (NEG) Urine Barbiturates NEG (NEG) Urine Phencyclidine (PCP) Level NEG (NEG) Ur Amphetamine/Methamphetamine NEG (NEG) MDMA (Ecstasy) Screen NEG (NEG) Urine Benzodiazepines Screen NEG (NEG) Urine Cocaine Metabolite NEG (NEG) Cannabinoids Comment see note Urine Synthetic Cannabinoids NEGATIVE (Negative) Ur Synthetic Cannabinoids Confirm (()) Urine Marijuana (THC) POS (NEG) Urine Marijuana (THC Carboxy Acid) 288 NG/ML (CUTOFF=5) White Blood Count 6.25 K/uL (4.8-10.8) Red Blood Count 5.00 M/uL (4.7-6.1) Hemoglobin 14.6 g/dL (14.0-18.0) Hematocrit 42.2 % (42-52) Mean Corpuscular Volume 84.4 fL (80-100) Mean Corpuscular Hemoglobin 29.2 pg (25-34) Mean Corpuscular Hemoglobin Concent 34.6 g/dl (32-36) Platelet Count 201 K/uL (130-400) Mean Platelet Volume 9.4 fL (7.4-10.4) Neutrophils (%) (Auto) 76.3 % Lymphocytes (%) (Auto) 14.1 % Monocytes (%) (Auto) 7.8 % Eosinophils (%) (Auto) 1.3 % Basophils (%) (Auto) 0.2 % Neutrophils # (Auto) 4.77 K/uL (1.4-6.5) Lymphocytes # (Auto) 0.88 K/uL (1.2-3.4) Monocytes # (Auto) 0.49 K/uL (0.11-0.59) Eosinophils # (Auto) 0.08 K/uL (0-0.5) Basophils # (Auto) 0.01 K/uL (0-0.2) RDW Standard Deviation 39.4 fL (36.4-46.3) RDW Coefficient of Variation 13.0 % (11.5-14.5) Immature Granulocyte % (Auto) 0.3 % Immature Granulocyte # (Auto) 0.02 K/uL (0.00-0.02) Est Creatinine Clear Calc Drug Dose 129.2 ml/min Estimated GFR () 106.8 Estimated GFR (Non- 92.2 BUN/Creatinine Ratio 8.3 (10-20) Calcium Level 8.6 mg/dl (8.5-10.1) Total Bilirubin 0.6 mg/dl (0.2-1) Direct Bilirubin 0.2 mg/dl (0-0.2) Aspartate Amino Transf (AST/SGOT) 31 U/L (15-37) Alanine Aminotransferase (ALT/SGPT) 39 U/L (12-78) Alkaline Phosphatase 74 U/L (45-117) Total Protein 6.4 gm/dl (6.4-8.2) Albumin 3.5 gm/dl (3.4-5.0) Globulin 2.9 gm/dl (2.5-4.0) Albumin/Globulin Ratio 1.2 (0.9-2) Thyroid Stimulating Hormone (TSH) 1.480 uIu/ml (0.300-4.500) Ethyl Alcohol mg/dL < 3.0 mg/dl (0-3) Bedside Glucose 167 mg/dl (70-99) Anion Gap 0.0 mmol/L (3-11) Problem Qualifiers (1) Obesity: Obesity type: unspecified obesity type Obesity classification: adult class 1 (BMI 30 ? 34.9) Body mass index: BMI 32.0-32.9
[2017-01-02] MEDS: hydrOXYzine HCL 25 MG TAB PO PRN ×2 (17:53→21:41)
[2017-01-02] MEDS: PALIPERIDONE 3 MG TABCR PO SCH (21:41)
[2017-01-03] MEDS: hydrOXYzine HCL 25 MG TAB PO PRN (01:23)
[2017-01-03 06:53] VITALS: BP_SYST 131; BP_SYST 138; BP_DIAS 70; BP_DIAS 83; PULSE 64; PULSE 80; TEMP 36.9
[2017-01-03] MEDS: NICOTINE 21 MG/24 HR TDSY TD SCH (08:47)
[2017-01-03] MEDS ORDERED: PALI156I IM (09:23)
[2017-01-03] MEDS ORDERED: PALI6TAB3 PO (09:23)
[2017-01-03] MEDS ORDERED: ATR25 PO (09:23)
--- NOTE | 2017-01-03 09:41 | Psych Management Progress Note ---
Psychiatry Miscellaneous Date of Service: Jan 03, 2017. participated in treatment team, patient is stable for discharge to outpatient level of care, completed form for county to reconvert his 304 to outpatient status.
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
== END 2017-01-03 11:35 | disposition home or self-care (01) | DRG 885 ==
LOC: EDBD 09:12 → C.EDA 09:14 → ENRESERV 20:14 → C.MHU 20:27
PROVIDERS: ADMIT Psychiatry & Neurology Psychiatry; ATTEND Psychiatry & Neurology Psychiatry
DX: F25.0 Schizoaffective disorder, bipolar type (principal); R45.851 Suicidal ideations; F31.61 Bipolar disorder, current episode mixed, mild; I10 Essential (primary) hypertension; F10.10 Alcohol abuse, uncomplicated; F12.10 Cannabis abuse, uncomplicated; F17.210 Nicotine dependence, cigarettes, uncomplicated; E66.9 Obesity, unspecified; Z79.899 Other long term (current) drug therapy; Z91.14 Patient's other noncompliance with medication regimen; Z68.32 Body mass index [BMI] 32.0-32.9, adult

== ENCOUNTER 2022-12-02 06:06 | Inpatient (IN) ==
[2022-12-02 06:40] LABS: Appearance Urine Clear (Clear); Bilirubin Urine Negative (Negative); Blood Urine Negative (Negative); Color Urine Yellow; Glucose Urine UA Negative (Negative); Ketones Urine Negative (Negative); Leukocyte Esterase Urine Negative (Negative); Nitrite Urine Negative (Negative); Protein Urine Negative (Negative); Specific Gravity Urine 1.009 (1.000-1.030); Urobilinogen Urine Negative (Negative); pH Urine 7.5 (4.5-7.5)
[2022-12-02 06:51] LABS: Basophils # (auto) 0.03 K/uL (0-0.2); Basophils % (auto) 0.4 %; Eosinophils # (auto) 0.06 K/uL (0-0.50); Eosinophils % (auto) 0.8 %; Hematocrit (blood only) 41.5 % (42.0-52.0); Hemoglobin 14.5 g/dl (14.0-18.0); Immature Granulocytes # (auto) 0.02 K/uL (0.01-0.20); Immature Granulocytes % (auto) 0.3 %; Lymphocytes # (auto) 1.86 K/uL (1.2-3.4); Lymphocytes % (auto) 23.3 %; Mean Corpuscular Hemoglobin 29.2 pg (25.0-34.0); Mean Corpuscular Hgb Conc 34.9 g/dL (32.0-36.0); Mean Corpuscular Volume 83.7 fL (80.0-100.0); Mean Platelet Volume 9.7 fL (9.4-12.4); Monocytes # (auto) 0.65 K/uL (0.11-0.59); Monocytes % (auto) 8.1 %; Neutrophils # (auto) 5.37 K/uL (1.40-6.50); Neutrophils % (auto) 67.1 %; Platelet Count 241 K/uL (130-400); RDW Coefficient of Variation 12.9 % (11.5-14.5); RDW Standard Deviation 38.5 fL (36.4-46.3); Red Blood Count 4.96 M/uL (4.70-6.10); White Blood Count 7.99 K/ul (4.8-10.8)
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
[2022-12-02 07:06] LABS: Acetaminophen < 3 ug/ml (10-30); Salicylate < 3.0 mg/dl (3.0-30)
[2022-12-02 07:08] LABS: Albumin Globulin Ratio 1.9 (0.9-2); Albumin Level 4.3 gm/dl (3.4-5.0); BUN Creatinine Ratio 15.9 (10-20); Bilirubin,Total 0.4 mg/dl (0.2-1.0); Calcium 9.2 mg/dl (8.6-10.3); Creatinine Clr Calc Pharmacy 106.8 ml/min; Est GFR (African American) 86.9 ml/min; Globulin 2.3 gm/dl (2.5-4.0); Potassium 3.3 mmol/L (3.5-5.1); Total Protein 6.6 gm/dl (6.0-8.3)
[2022-12-02 07:12] LABS: Amphetamines+Metham, Urine Neg (Neg); Barbiturates, Urine Neg (Neg); Benzodiazepine, Urine Neg (Neg); Cocaine, Urine Neg (Neg); MDMA (Ecstacy), Urine Neg (Neg); Methadone, Urine Neg (Neg); Opiate, Urine Neg (Neg); Phencyclidine, Urine Neg (Neg)
[2022-12-02] MEDS ORDERED: HALOPERIDOL LACTATE 5 MG/ML 1 ML VIAL IM STA (07:55)
[2022-12-02] MEDS ORDERED: LORazepam 2 MG/1 ML VIAL IM STA (07:55)
[2022-12-02] MEDS ORDERED: SODIUM CHLORIDE 0.9% 1000ML 1,000 ML IV ONE (07:55)
[2022-12-02] MEDS ORDERED: HALOPERIDOL LACTATE 5 MG/ML 1 ML VIAL IV PRN (08:32)
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
[2022-12-02] MEDS: SODIUM CHLORIDE 0.9% 1000ML 1,000 ML IV SCH ×2 (12:45→20:49)
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
[2022-12-03] MEDS: MELATONIN 3 MG TAB PO PRN ×2 (00:59→21:26)
[2022-12-03] MEDS ORDERED: ACETAMINOPHEN SUSP 325 MG/10.15 ML UDC PO PRN (04:09)
[2022-12-03] MEDS: SODIUM CHLORIDE 0.9% 1000ML 1,000 ML IV SCH ×3 (04:48→23:29)
[2022-12-03 07:28] LABS: Basophils # (auto) 0.02 K/uL (0-0.2); Basophils % (auto) 0.2 %; Eosinophils # (auto) 0.16 K/uL (0-0.50); Eosinophils % (auto) 1.8 %; Hematocrit (blood only) 40.4 % (42.0-52.0); Hemoglobin 13.8 g/dl (14.0-18.0); Immature Granulocytes # (auto) 0.04 K/uL (0.01-0.20); Immature Granulocytes % (auto) 0.4 %; Lymphocytes # (auto) 1.75 K/uL (1.2-3.4); Lymphocytes % (auto) 19.6 %; Mean Corpuscular Hgb Conc 34.2 g/dL (32.0-36.0); Mean Corpuscular Volume 84.9 fL (80.0-100.0); Mean Platelet Volume 9.7 fL (9.4-12.4); Monocytes # (auto) 0.71 K/uL (0.11-0.59); Monocytes % (auto) 7.9 %; Neutrophils # (auto) 6.27 K/uL (1.40-6.50); Neutrophils % (auto) 70.1 %; Platelet Count 195 K/uL (130-400); RDW Coefficient of Variation 12.8 % (11.5-14.5); Red Blood Count 4.76 M/uL (4.70-6.10); White Blood Count 8.95 K/ul (4.8-10.8)
[2022-12-03 07:50] LABS: Albumin Level 3.7 gm/dl (3.4-5.0); Bilirubin Direct 0.1 mg/dl (0-0.2); Bilirubin,Total 0.4 mg/dl (0.2-1.0); Total Protein 5.7 gm/dl (6.0-8.3)
[2022-12-03] MEDS: ENOXAPARIN INJ 40 MG/0.4 ML SYR SQ SCH (08:56)
--- NOTE | 2022-12-03 11:47 | Communication Note ---
Date of Service: December 03, 2022 Mr Diogo Hernández was admitted yesterday for acute psychosis. Still exhibits psychotic behavior. Pacing around the room. Disorganized thought Has not required any PRN medications other than the initial IM Haldol and Ativan that he received in the ER yesterday. He was admitted to medical service due to mild rhabdomyolysis with a CK of 1597 which is likely because he played 6 hours of golf frisbee yesterday. With IVF his CK has come down to 557. He is tolerating oral intake and drinking fluids. His telemetry was reviewed and there have been no arrhythmia or pauses since being here. He is medically stable for disposition per psychiatry. I have asked nursing staff to notify psychiatry liason. Full note to follow
--- NOTE | 2022-12-03 18:33 | Hospitalist Progress Note ---
Date of Service December 03, 2022 Assessment & Plan (1) Rhabdomyolysis: Plan: This is a 32 y/o male with a history of schizoaffective disorder bipolar type, polysubstance abuse, medical non-compliance, and hypertension who was brought to the ED today via EMS with acute paranoia and possible overdose. In the ED pt was agitated and required IM Haldol and Ativan for sedation. He was admitted to [facility] for suicidal and homicidal ideations earlier this month with reported discharge last week. He has a history of multiple psychiatric admissions in different facilities in different states for similar episodes. Pt has apparently been noncompliant with new medications since being discharged last week. He reported to EMS that he took an overdose of hydroxyzine but was unclear on how many tablets (original prescription was for 30). In the ED, pt was found to have rhabdomyolysis with elevated CK and mildly elevated AST. It is unclear if this is related to recent agitation, to recent prolonged episode of ultimate frisbee (per pt), or to walking large distances (which pt reported to the ED). Pt also states he drinks minimal water, even when outside in the heat. Due to the rhabdo, pt was referred for medical admission and evaluation by psychiatry as he is currently on a 302 done in the ED. Patient was on IVF for 1 day. CK on presentation was 1597 now 557. He is tolerating oral intake and intermittently gets IVF which we can continue for another 1 day while he remains here with us. However, patient is tolerating oral intake and I expect his CK will continue to downtrend even OFF IVF. From a medicine perspective, he is medically stable for discharge once a safe psych plan is in place (2) Acute paranoia: Plan: Currently patient is here on a 302 petition He is not allowed to leave AMA, if he attempts to leave AMA--> please notify psych liason Continue with haldol IV PRN. He has not required any PRN haldol since being hospitalized. He has bursts of restlessness and near agitation but is redirectable. If he becomes combative, IM haldol is appropriate Further management of his acute psychosis per psychiatry (3) Schizoaffective disorder: (4) Polysubstance abuse: Plan DVT ppx- Ambulation Admission and Anticipated Discharge Date Admission Date: December 02, 2022 Subjective Patient remained on IVF through the night and this morning refused further. He later agreed to it again so it was reconnected but then after that asked for it to be removed He has been restless in his room, pacing around He is tolerating food and water and has been drinking fluids Patient is still with a bedside sitter, currently day 2 of his 302 petition Review of Systems Review of Systems: as above Physical Exam Physical Exam: Pacing around the room, appears disheveled but no acute distress Respiratory: Breathing comfortably, no wheezing/rhonchi/rales Cardiovascular: regular rate and rhythm, no murmurs/rubs/gallops Gastrointestinal (Abdomen): soft, non tender, non distended Musculoskeletal: No swelling Neurologic: awake, alert, ambulating in room independently Psychiatric: Disheveled, speech is tangential, restlessly pacing his room Results & Data Results & Data Vital Signs (Past 12 Hours) Vital Signs Temp Pulse Pulse Resp BP Pulse Ox O2 Del Method 12/03/22 16:08 101 H 12/03/22 18:00 36.7 C 85 20 149/85 H 97 Room Air 12/03/22 14:56 36.7 C 74 21 136/77 99 Room Air 12/03/22 11:08 37.0 C 75 16 136/79 100 Room Air 12/03/22 09:22 78 12/03/22 07:00 36.5 C 72 18 127/75 100 Room Air
[2022-12-04] MEDS: SODIUM CHLORIDE 0.9% 1000ML 1,000 ML IV SCH (05:19)
--- NOTE | 2022-12-04 05:39 | Electrocardiogram Report ---
Test Reason : Blood Pressure : / mmHG Vent. Rate : 103 BPM Atrial Rate : 103 BPM P-R Int : 128 ms QRS Dur : 094 ms QT Int : 352 ms P-R-T Axes : 056 023 042 degrees QTc Int : 461 ms Sinus tachycardia Otherwise normal ECG When compared with ECG of 30-NOV-2022 04:28, No significant change Confirmed by Jeancarlos Jackson ([id number]) on 12/04/2022 5:38:37 AM Referred By: Confirmed By:Jeancarlos Jackson
[2022-12-04 08:06] LABS: Albumin Level 4.5 gm/dl (3.4-5.0); Bilirubin Direct 0.1 mg/dl (0-0.2); Bilirubin,Total 0.5 mg/dl (0.2-1.0); Total Protein 7.1 gm/dl (6.0-8.3)
[2022-12-04] MEDS: ENOXAPARIN INJ 40 MG/0.4 ML SYR SQ SCH (10:13)
[2022-12-04] MEDS ORDERED: OLANZapine ZYDIS 5 MG ORALLY DIS. TAB PO PRN (11:20)
--- NOTE | 2022-12-04 14:16 | Hospitalist Progress Note ---
Date of Service December 04, 2022 Assessment & Plan (1) Rhabdomyolysis: Plan: This is a 32 y/o male with a history of schizoaffective disorder bipolar type, polysubstance abuse, medical non-compliance, and hypertension who was brought to the ED today via EMS with acute paranoia and possible overdose. In the ED pt was agitated and required IM Haldol and Ativan for sedation. He was admitted to [facility] for suicidal and homicidal ideations earlier this month with reported discharge last week. He has a history of multiple psychiatric admissions in different facilities in different states for similar episodes. Pt has apparently been noncompliant with new medications since being discharged last week. He reported to EMS that he took an overdose of hydroxyzine but was unclear on how many tablets (original prescription was for 30). In the ED, pt was found to have rhabdomyolysis with elevated CK and mildly elevated AST. It is unclear if this is related to recent agitation, to recent prolonged episode of ultimate frisbee (per pt), or to walking large distances (which pt reported to the ED). Pt also states he drinks minimal water, even when outside in the heat. Due to the rhabdo, pt was referred for medical admission and evaluation by psychiatry as he is currently on a 302 done in the ED. Patient was on IVF for 1 day. CK on presentation was 1597 now 557. He is tolerating oral intake and intermittently gets IVF which we can continue for another 1 day while he remains here with us. However, patient is tolerating oral intake and I expect his CK will continue to downtrend even OFF IVF. From a medicine perspective, he is medically stable for discharge once a safe psych plan is in place 12/04/2022 Remains medically stable CK has been almost normal and does not require any further IV fluid or monitoring Was advised to drink more fluids orally Remains medically stable to be transferred to a psychiatric facility (2) Acute paranoia: Plan: Currently patient is here on a 302 petition He is not allowed to leave AMA, if he attempts to leave AMA--> please notify psych liason Continue with haldol IV PRN. He has not required any PRN haldol since being hospitalized. He has bursts of restlessness and near agitation but is redirectable. If he becomes combative, IM haldol is appropriate Appreciate psychiatric input and recommendation Patient remains stable in the telemetry unit without any agitation and/or aggressiveness Zyprexa 2.5 mg p.o. twice daily as needed was advised (3) Schizoaffective disorder: Plan: Management as per psychiatrist (4) Polysubstance abuse: Plan: History of polysubstance abuse Plan DVT ppx- Ambulation Remains medically stable to be transferred to psychiatric facility Likely discharge tomorrow Admission and Anticipated Discharge Date Admission Date: December 02, 2022 Subjective 12/04/2022 The patient was seen and examined in telemetry unit He was shaky, tremulous and confused without any agitation or aggressiveness He denies any significant symptoms except ongoing psychosis Review of Systems Review of Systems: Unobtainable due to cognitive status Physical Exam Physical Exam: Sitting at the edge of the bed without any acute distress Constitutional: well developed, well nourished, + ill appearing and + obese Eyes: PERRL, conjunctivae normal, anicteric sclerae ENMT: external ear and nose normal, oropharynx normal Neck: trachea midline, no thyromegaly Respiratory: no respiratory distress Auscultation: lungs clear to auscultation bilaterally Cardiovascular: Rate/Rhythm: regular rate and regular rhythm; not tachycardic Heart Sounds: normal S1 and normal S2; no murmur Extremities: no edema Gastrointestinal (Abdomen): Inspection/Auscultation: normal bowel sounds; abdomen not distended Percussion/Palpation: abdomen soft; abdomen nontender Musculoskeletal: No acute arthritis involving any joint Neurologic: Alert and awake. Pleasantly confused. Has psychotic symptoms. Lymphatic: no cervical or axillary lymphadenopathy Results & Data Results & Data Vital Signs (Past 12 Hours) Vital Signs Temp Pulse Pulse Resp BP Pulse Ox O2 Del Method 12/04/22 11:06 36.9 C 84 18 150/83 H 99 Room Air 12/04/22 08:14 36.9 C 86 18 128/72 96 Room Air 12/04/22 02:19 36.6 C 79 15 149/94 H 96 Room Air Laboratory Results Cardiac Enzymes 12/04/22 Range/Units 07:14 Total Creatine Kinase 343 H (30-223) U/L Liver Function 12/04/22 Range/Units 07:14 Total Bilirubin 0.5 (0.2-1.0) mg/dl Direct Bilirubin 0.1 (0-0.2) mg/dl AST 23 (13-39) U/L ALT 33 (7-52) U/L Alkaline Phosphatase 55 (34-104) U/L Albumin 4.5 (3.4-5.0) gm/dl Medications Administered Current Inpatient Medications Acetaminophen (Acetaminophen Susp 325 Mg/10.15 Ml Udc) 650 mg PO Q6H PRN PRN Reason: pain/fever Stop: 01/02/23 04:08 Enoxaparin Sodium (Enoxaparin Inj 40 Mg/0.4 Ml Syr) 40 mg SQ QAM PAUL Stop: 01/02/23 08:59 Last Admin: 12/04/22 10:13 Dose: Not Given Haloperidol Lactate (Haloperidol Lactate 5 Mg/Ml 1 Ml Vial) 5 mg IV Q6H PRN PRN Reason: Agitation Stop: 01/01/23 08:31 Melatonin (Melatonin 3 Mg Tab) 3 mg PO HS PRN PRN Reason: Sleep Stop: 01/02/23 00:17 Last Admin: 12/03/22 21:26 Dose: 3 mg Olanzapine (Olanzapine Zydis 5 Mg Orally Dis. Tab) 2.5 mg PO BID PRN PRN Reason: Anxiety/Agitation Stop: 01/03/23 20:59
[2022-12-04] MEDS: MELATONIN 3 MG TAB PO PRN (22:01)
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
== END 2022-12-05 06:21 | disposition home or self-care (01) | DRG 885 ==
LOC: ED 06:06 → SUATTDRO 08:32 → 2S 08:32
DX: M62.82 Rhabdomyolysis; Z88.8 Allergy status to other drugs, medicaments and biological substances; Z79.899 Other long term (current) drug therapy; I10 Essential (primary) hypertension; F22 Delusional disorders; Z88.4 Allergy status to anesthetic agent; Z91.199 Patient's noncompliance with other medical treatment and regimen due to unspecified reason; F19.20 Other psychoactive substance dependence, uncomplicated; T43.591A Poisoning by other antipsychotics and neuroleptics, accidental (unintentional), initial encounter; F25.0 Schizoaffective disorder, bipolar type